=== PATIENT | female | born 1985 | race Caucasian/White ===

== ENCOUNTER 2018-04-29 17:33 | Emergency (ER) | payer SELFPAY ==
[2018-04-29 17:48] VITALS: BP 114/87; PULSE 85; RESP 18; TEMP 36.8; O2SAT 100
--- NOTE | 2018-04-29 18:00 | ED.FEMALEGU ---
HPI - Female Genitourinary <CHELITA Choi - Last Filed: 04/29/18 20:59> General Chief complaint: Urogenital-Female Stated complaint: uti,kidney infection, back hurts Time Seen by Provider: 04/29/18 17:48 Source: patient Mode of arrival: ambulatory Limitations: no limitations History of Present Illness HPI Narrative: Patient is a 32-year-old female with recent diagnosis of UTI. She started Levaquin for UTI 7 days ago. Her culture came back resistant to Levaquin, so she was switched to Septra 3 days ago. Patient presents with chief complaint of flank pain on the left side. She also complains of malaise, nausea and general not feeling well. She states that her dysuria urgency and frequency have improved. She denies any vomiting or diarrhea. She denies fevers. Related Data Home Medications Medication Instructions Recorded Confirmed VIT#96/FERROUS FUM/FA 1 tab PO Q DAY #0 04/30/11 ( Tablet) Allergies Allergy/AdvReac Type Severity Reaction Status Date / Time No Known Allergies Allergy Uncoded 10/05/17 12:19 Review of Systems <ERIN Choi - Last Filed: 04/29/18 20:59> Review of Systems GENERAL: See HPI HEENT: Denies sinus pain, ear pain, sore throat, difficulty swallowing, dizziness. RESPIRATORY: Denies dyspnea, cough, wheezing, hemoptysis, sputum. CARDIOVASCULAR: Denies chest pain, palpitations, orthopnea, edema, GASTROINTESTINAL: See HPI : See HPI MUSCULOSKELETAL: denies weakness, joint pain, or bony pain SKIN: Denies rash, skin lesions, or other NEUROLOGIC: Denies weakness, headache, numbness, change in speech, confusion, seizures, incoordination. PSYCHIATRIC: No concerning psychosocial issues. 12 point review of systems is negative except for those stated above Exam <CHELITA Choi - Last Filed: 04/29/18 20:59> Narrative Exam Narrative: GENERAL: This is a well-nourished, well-developed patient, appears uncomfortable sitting on stretcher HEAD: Atraumatic. Normocephalic. No temporal or scalp tenderness. EYES: Pupils equal round and reactive. Extraocular motions intact. No scleral icterus. No injection or drainage. ENT: Nose without bleeding, purulent drainage or septal hematoma. Throat without erythema, tonsillar hypertrophy or exudate. Uvula midline. Airway patent. NECK: Trachea midline. No JVD or lymphadenopathy. Supple, nontender, no meningeal signs. CARDIOVASCULAR: Regular rate and rhythm without murmurs, gallops, or rubs. RESPIRATORY: Clear to auscultation. Breath sounds equal bilaterally. No wheezes, rales, or rhonchi. GASTROINTESTINAL: Abdomen soft, non-tender, nondistended. No hepato-splenomegaly, or palpable masses. No guarding. Active bowel sounds all 4 quadrants. Pressure to suprapubic palpation EXTREMITIES: No clubbing, cyanosis, or edema. No joint tenderness, effusion, or edema noted. BACK: Nontender without deformity or crepitance. CVA tenderness right side. NEURO: AOx3. SKIN: No rash or erythema. Initial Vital Signs Initial Vital Signs: Vital Signs Temperature 98.2 F 04/29/18 17:48 Pulse Rate 85 04/29/18 17:48 Respiratory Rate 18 04/29/18 17:48 Blood Pressure 114/87 04/29/18 17:48 Pulse Oximetry 100 04/29/18 17:48 <López Ramirez DO - Last Filed: 04/29/18 21:13> Initial Vital Signs Initial Vital Signs: Vital Signs Temperature 98.2 F 04/29/18 17:48 Pulse Rate 85 04/29/18 17:48 Respiratory Rate 18 04/29/18 17:48 Blood Pressure 114/87 04/29/18 17:48 Pulse Oximetry 100 04/29/18 17:48 Course <CHELITA Choi - Last Filed: 04/29/18 20:59> Orders Ordered: ED Orders 04/29/18 18:07 Urinalysis and Microscopic Stat 04/29/18 18:30 Complete Blood Count AUTO DIFF Stat Comprehensive Metabolic Panel Stat Lactate (Lactic Acid) Stat Procalcitonin Stat Discontinued Medications Sodium Chloride (Normal Saline 0.9%) 1,000 mls @ 1,000 mls/hr IV BOLUS PRN PRN Reason: Fluid replacement Sodium Chloride (Normal Saline 0.9%) 1,000 mls @ 1,000 mls/hr IV BOLUS PRN PRN Reason: Fluid replacement Ketorolac Tromethamine (Toradol) 30 mg IV NOW ONE Stop: 04/29/18 19:14 Last Admin: 04/29/18 19:30 Dose: 30 mg Reevaluation(s) Reevaluation #1: Patient is staying on bed. States that she is comfortable in a position. Discussed normal white blood cell count and lactic acid level. Discussed trial of Toradol for pain. Time: 19:05 Vital Signs - 8 hr 04/29/18 17:48 04/29/18 19:41 Temperature 98.2 F Pulse Rate 85 84 Respiratory Rate 18 15 Blood Pressure 114/87 Blood Pressure [Right Arm] 111/59 L Pulse Oximetry 100 95 <López Ramirez DO - Last Filed: 04/29/18 21:13> Orders Ordered: ED Orders 04/29/18 18:07 Urinalysis and Microscopic Stat 04/29/18 18:30 Complete Blood Count AUTO DIFF Stat Comprehensive Metabolic Panel Stat Lactate (Lactic Acid) Stat Procalcitonin Stat Discontinued Medications Sodium Chloride (Normal Saline 0.9%) 1,000 mls @ 1,000 mls/hr IV BOLUS PRN PRN Reason: Fluid replacement Sodium Chloride (Normal Saline 0.9%) 1,000 mls @ 1,000 mls/hr IV BOLUS PRN PRN Reason: Fluid replacement Ketorolac Tromethamine (Toradol) 30 mg IV NOW ONE Stop: 04/29/18 19:14 Last Admin: 04/29/18 19:30 Dose: 30 mg Vital Signs - 8 hr 04/29/18 17:48 04/29/18 19:41 Temperature 98.2 F Pulse Rate 85 84 Respiratory Rate 18 15 Blood Pressure 114/87 Blood Pressure [Right Arm] 111/59 L Pulse Oximetry 100 95 MDM - Female Genitourinary <AUBREY Choi- - Last Filed: 04/29/18 20:59> Lab Data Result diagrams: 04/29/18 18:30 04/29/18 18:30 Lab Results 04/29/18 04/29/18 04/29/18 Range/Units 18:07 18:30 18:30 WBC (4.5-11.0) X10^3/uL RBC (4.0-5.2) X10^6/uL Hgb (12.0-16.0) g/dL Hct (36-46) % MCV (80-100) fL MCH (26-34) PG MCHC (30-36) % RDW (11.6-14.8) % Plt Count (150-400) X10^3/uL Neut % (Auto) (50-75) % Lymph % (Auto) (25-40) % [place] % (Auto) (3-14) % Eos % (Auto) (2-4) % Baso % (Auto) (0-2) % Neut # (Auto) (7360-6052) /uL Sodium (137-145) mmol/L Potassium (3.4-5.1) mmol/L Chloride (98-107) mmol/L Carbon Dioxide (22-32) mmol/L BUN (7-17) mg/dL Creatinine (0.52-1.04) mg/dL Estimated GFR (>60) mL/min BUN/Creatinine Ratio (6-22) Glucose (70-100) mg/dL Lactate 1.0 (0.7-2.1) mmol/L Calcium (8.4-10.2) mg/dL Total Bilirubin (0.2-1.3) mg/dL AST (14-36) IU/L ALT (9-52) IU/L Alkaline Phosphatase (38-126) U/L Total Protein (6.3-8.2) g/dL Albumin (3.5-5.0) g/dL Globulin (1.7-4.1) g/dL Albumin/Globulin Ratio (1.0-2.8) Procalcitonin < 0.05 (<0.5) ng/mL Urine Color Yellow Urine Appearance Clear Urine pH 7.0 (4.5-8.0) Ur Specific [place] 1.010 (1.000-1.035) Urine Protein Negative (Negative) Urine Glucose (UA) Negative (Normal) g/dL Urine Ketones Negative (NEGATIVE) Urine Occult Blood Negative (Negative) Urine Nitrate Negative (Negative) Urine Bilirubin Negative (NEGATIVE) Urine Urobilinogen 0.2 (0.2) E.U./dL Ur Leukocyte Esterase Negative (NEGATIVE) Urine RBC 0-1/hpf (0-5/HPF) Urine WBC 0-1/hpf (0-5/HPF) Urine Bacteria None seen (None) 04/29/18 04/29/18 Range/Units 18:30 18:30 WBC 6.7 (4.5-11.0) X10^3/uL RBC 4.30 (4.0-5.2) X10^6/uL Hgb 13.1 (12.0-16.0) g/dL Hct 38.3 (36-46) % MCV 89.1 (80-100) fL MCH 30.4 (26-34) PG MCHC 34.1 (30-36) % RDW 13.0 (11.6-14.8) % Plt Count 187 (150-400) X10^3/uL Neut % (Auto) 75.4 H (50-75) % Lymph % (Auto) 11.4 L (25-40) % [place] % (Auto) 9.9 (3-14) % Eos % (Auto) 2.9 (2-4) % Baso % (Auto) 0.4 (0-2) % Neut # (Auto) 5000 (1245-0197) /uL Sodium 141 (137-145) mmol/L Potassium 3.7 (3.4-5.1) mmol/L Chloride 102 (98-107) mmol/L Carbon Dioxide 25 (22-32) mmol/L BUN 10 (7-17) mg/dL Creatinine 0.90 (0.52-1.04) mg/dL Estimated GFR > 60.0 (>60) mL/min BUN/Creatinine Ratio 11.1 (6-22) Glucose 97 (70-100) mg/dL Lactate (0.7-2.1) mmol/L Calcium 9.4 (8.4-10.2) mg/dL Total Bilirubin 0.6 (0.2-1.3) mg/dL AST 26 (14-36) IU/L ALT 26 (9-52) IU/L Alkaline Phosphatase 77 (38-126) U/L Total Protein 8.0 (6.3-8.2) g/dL Albumin 4.8 (3.5-5.0) g/dL Globulin 3.2 (1.7-4.1) g/dL Albumin/Globulin Ratio 1.5 (1.0-2.8) Procalcitonin (<0.5) ng/mL Urine Color Urine Appearance Urine pH (4.5-8.0) Ur Specific [place] (1.000-1.035) Urine Protein (Negative) Urine Glucose (UA) (Normal) g/dL Urine Ketones (NEGATIVE) Urine Occult Blood (Negative) Urine Nitrate (Negative) Urine Bilirubin (NEGATIVE) Urine Urobilinogen (0.2) E.U./dL Ur Leukocyte Esterase (NEGATIVE) Urine RBC (0-5/HPF) Urine WBC (0-5/HPF) Urine Bacteria (None) Point of Care Testing Test Results Negative Urine Dip Bedside Urine Glucose Negative Bedside Urine Bilirubin - Negative Bedside Urine Ketone - Negative Urine Specific [place] 1.015 Bedside Urine Occult Blood - Negative Bedside Urine pH 6.5 Bedside Urine Protein - Negative Bedside Urine Urobilinogen - Negative Bedside Urine Nitrite - Negative Bedside Urine Leukocytes - Negative Esterase MDM Narrative Medical decision making narrative: Patient is a 32-year-old female recently diagnosed with UTI who presents to the emergency department with flank pain and concern that her UTIs getting worse. Her antibiotics were changed by her clinic from Levaquin to Bactrim due to resistance. She had a CBC, CMP procalcitonin and lactate done. She does not have an elevated white blood cell count and her pro calcitonin and lactate are normal. Of note her urine does not have any signs of of infection on urinalysis in the emergency department. She is hemodynamically stable, afebrile and appears well. She experienced some relief from her back pain with a dose of Toradol in the emergency department. Given that she has not used any [id number] pain medications for her back discomfort, I encouraged her to use Tylenol and/or ibuprofen as needed and able. The patient was adamant that she did not want any further workup of her flank pain and did not want any imaging. I discussed return precautions of fever, inability keep down fluids or any acute concerns or changes. She had no questions or concerns upon discharge. <López Ramirez, DO - Last Filed: 04/29/18 21:13> Lab Data Lab Results 04/29/18 04/29/18 04/29/18 Range/Units 18:07 18:30 18:30 WBC (4.5-11.0) X10^3/uL RBC (4.0-5.2) X10^6/uL Hgb (12.0-16.0) g/dL Hct (36-46) % MCV (80-100) fL MCH (26-34) PG MCHC (30-36) % RDW (11.6-14.8) % Plt Count (150-400) X10^3/uL Neut % (Auto) (50-75) % Lymph % (Auto) (25-40) % [place] % (Auto) (3-14) % Eos % (Auto) (2-4) % Baso % (Auto) (0-2) % Neut # (Auto) (0199-8447) /uL Sodium (137-145) mmol/L Potassium (3.4-5.1) mmol/L Chloride (98-107) mmol/L Carbon Dioxide (22-32) mmol/L BUN (7-17) mg/dL Creatinine (0.52-1.04) mg/dL Estimated GFR (>60) mL/min BUN/Creatinine Ratio (6-22) Glucose (70-100) mg/dL Lactate 1.0 (0.7-2.1) mmol/L Calcium (8.4-10.2) mg/dL Total Bilirubin (0.2-1.3) mg/dL AST (14-36) IU/L ALT (9-52) IU/L Alkaline Phosphatase (38-126) U/L Total Protein (6.3-8.2) g/dL Albumin (3.5-5.0) g/dL Globulin (1.7-4.1) g/dL Albumin/Globulin Ratio (1.0-2.8) Procalcitonin < 0.05 (<0.5) ng/mL Urine Color Yellow Urine Appearance Clear Urine pH 7.0 (4.5-8.0) Ur Specific [place] 1.010 (1.000-1.035) Urine Protein Negative (Negative) Urine Glucose (UA) Negative (Normal) g/dL Urine Ketones Negative (NEGATIVE) Urine Occult Blood Negative (Negative) Urine Nitrate Negative (Negative) Urine Bilirubin Negative (NEGATIVE) Urine Urobilinogen 0.2 (0.2) E.U./dL Ur Leukocyte Esterase Negative (NEGATIVE) Urine RBC 0-1/hpf (0-5/HPF) Urine WBC 0-1/hpf (0-5/HPF) Urine Bacteria None seen (None) 04/29/18 04/29/18 Range/Units 18:30 18:30 WBC 6.7 (4.5-11.0) X10^3/uL RBC 4.30 (4.0-5.2) X10^6/uL Hgb 13.1 (12.0-16.0) g/dL Hct 38.3 (36-46) % MCV 89.1 (80-100) fL MCH 30.4 (26-34) PG MCHC 34.1 (30-36) % RDW 13.0 (11.6-14.8) % Plt Count 187 (150-400) X10^3/uL Neut % (Auto) 75.4 H (50-75) % Lymph % (Auto) 11.4 L (25-40) % [place] % (Auto) 9.9 (3-14) % Eos % (Auto) 2.9 (2-4) % Baso % (Auto) 0.4 (0-2) % Neut # (Auto) 5000 (2970-7387) /uL Sodium 141 (137-145) mmol/L Potassium 3.7 (3.4-5.1) mmol/L Chloride 102 (98-107) mmol/L Carbon Dioxide 25 (22-32) mmol/L BUN 10 (7-17) mg/dL Creatinine 0.90 (0.52-1.04) mg/dL Estimated GFR > 60.0 (>60) mL/min BUN/Creatinine Ratio 11.1 (6-22) Glucose 97 (70-100) mg/dL Lactate (0.7-2.1) mmol/L Calcium 9.4 (8.4-10.2) mg/dL Total Bilirubin 0.6 (0.2-1.3) mg/dL AST 26 (14-36) IU/L ALT 26 (9-52) IU/L Alkaline Phosphatase 77 (38-126) U/L Total Protein 8.0 (6.3-8.2) g/dL Albumin 4.8 (3.5-5.0) g/dL Globulin 3.2 (1.7-4.1) g/dL Albumin/Globulin Ratio 1.5 (1.0-2.8) Procalcitonin (<0.5) ng/mL Urine Color Urine Appearance Urine pH (4.5-8.0) Ur Specific [place] (1.000-1.035) Urine Protein (Negative) Urine Glucose (UA) (Normal) g/dL Urine Ketones (NEGATIVE) Urine Occult Blood (Negative) Urine Nitrate (Negative) Urine Bilirubin (NEGATIVE) Urine Urobilinogen (0.2) E.U./dL Ur Leukocyte Esterase (NEGATIVE) Urine RBC (0-5/HPF) Urine WBC (0-5/HPF) Urine Bacteria (None) Point of Care Testing Test Results Negative Urine Dip Bedside Urine Glucose Negative Bedside Urine Bilirubin - Negative Bedside Urine Ketone - Negative Urine Specific [place] 1.015 Bedside Urine Occult Blood - Negative Bedside Urine pH 6.5 Bedside Urine Protein - Negative Bedside Urine Urobilinogen - Negative Bedside Urine Nitrite - Negative Bedside Urine Leukocytes - Negative Esterase Discharge Plan Departure Patient Disposition: Home Clinical Impression: Flank pain Discharge Date/Time: 04/29/18 20:21 Interventions: ED Discharge Assessment Last Done: 04/29/18 20:21 Instructions: DI for Flank Pain Activity Restrictions/Additional Instructions: Your vital signs are stable, your blood work is normal and your urine is clean in the emergency department. I would keep taking the Bactrim DS for urinary tract infection. The cultures sent to me by the medical group state that Bactrim should be effective for your infection. Please monitor for fever, inability keep down fluids or worsening. Feel free to take [id number] pain medication as needed for your flank pain. Please avoid any NSAIDs such as ibuprofen or Aleve for 6-8 hours after the Toradol injection in the emergency department. Prescriptions: No Action VIT#96/FERROUS FUM/FA ( Tablet) 1 tab PO Q DAY Qty: 0 RF: 0 <López Ramirez DO - Last Filed: 04/29/18 21:13> Cosign ED Attending Izzy Attestation: I was available for consultation during this patient's emergency department encounter
[2018-04-29 18:42] LABS: Add Manual Diff / Slide Review NO; Basophils Percent Auto 0.4 % (0-2); Eosinophils Percent Auto 2.9 % (2-4); Hematocrit 38.3 % (36-46); Hemoglobin 13.1 g/dL (12.0-16.0); Lymphocytes Percent Auto 11.4 % (25-40); Mean Corpuscular HGB Conc 34.1 % (30-36); Mean Corpuscular Hemoglobin 30.4 PG (26-34); Mean Corpuscular Volume 89.1 fL (80-100); Monocytes Percent Auto 9.9 % (3-14); Neutrophils Absolute Auto 5000 /uL (3000-5900); Neutrophils Percent Auto 75.4 % (50-75); Platelet Count 187 X10^3/uL (150-400); White Blood Cell Count 6.7 X10^3/uL (4.5-11.0)
[2018-04-29 18:51] LABS: Alanine Aminotransferase 26 IU/L (9-52); Albumin 4.8 g/dL (3.5-5.0); Albumin Globulin Ratio 1.5 (1.0-2.8); Alkaline Phosphatase 77 U/L (38-126); Aspartate Aminotransferase 26 IU/L (14-36); BUN Creatinine Ratio 11.1 (6-22); Bilirubin Total 0.6 mg/dL (0.2-1.3); Blood Urea Nitrogen 10 mg/dL (7-17); Calcium 9.4 mg/dL (8.4-10.2); Carbon Dioxide 25 mmol/L (22-32); Chloride 102 mmol/L (98-107); Estimated Glomerular Filt Rate > 60.0 mL/min (>60); Globulin 3.2 g/dL (1.7-4.1); Glucose 97 mg/dL (70-100); HEMOLYSIS < 15 (0-50); Potassium 3.7 mmol/L (3.4-5.1); Sodium 141 mmol/L (137-145)
[2018-04-29 19:27] LABS: Appearance Urine UA CLEAR; Bacteria Urine None Seen; Bilirubin Urine UA NEGATIVE (NEGATIVE); Color Urine UA YELLOW; Glucose Urine UA NEGATIVE (Normal); Ketones Urine UA NEGATIVE (NEGATIVE); Leukocyte Esterase Urine UA NEGATIVE (NEGATIVE); Nitrite Urine UA NEGATIVE (Negative); Occult Blood Urine UA NEGATIVE (Negative); Protein Urine UA NEGATIVE (Negative); Urobilinogen Urine UA 0.2 E.U./dL (0.2)
[2018-04-29] MEDS: KETOROLAC 60 MG/2 ML VIAL 30 MG IV (19:30)
[2018-04-29 19:34] LABS: RBC Urine 0-1/HPF (0-5/HPF); WBC Urine 0-1/HPF (0-5/HPF)
[2018-04-29 19:41] VITALS: BP 111/59; PULSE 84; RESP 15; O2SAT 95
[2018-04-29 19:45] LABS: Procalcitonin < 0.05 ng/mL (<0.5)
--- NOTE | 2018-04-29 20:20 | PC.NURSE ---
Pt drinking po water from a gallon jug. Provider aware and aknowledged no need for NS bolus.
== END 2018-04-29 20:21 | disposition home or self-care (01) ==
PROVIDERS: Emergency Provider Nurse Practitioner Family
DX: R10.9 Unspecified abdominal pain (principal)
CPT/HCPCS: 36591; 80053; 81001; 81003; 81025; 83605; 84145; 85025; 96374; 99282; 99284; J1885

== ENCOUNTER → 2021-01-13 13:31 | Outpatient (CLI) | payer OTHER, SELFPAY ==
--- NOTE | 2021-01-13 13:33 | DI.US.S_ITS ---
PROCEDURE: US PELVIC COMPLETE INDICATIONS: Uterine pain TECHNIQUE: Real-time scanning was performed of the pelvic organs, with image documentation. Additional endovaginal scanning was necessary due to incomplete visualization of the adnexal and endometrial structures by transabdominal scanning. COMPARISON: None. FINDINGS: Uterus: Uterus is normal in size at 4.2 x 6.0 x 9.2 cm, anteverted. The endometrium measures 5.8 mm in combined thickness. Ovaries: Normal bilaterally without evidence of torsion or abnormal cystic or solid mass Other: No pathologic free abdominal or pelvic fluid. IMPRESSION: Normal pelvic ultrasound. Dictated by: Clement Alcantara M.D. on 01/13/2021 at 16:25 Approved by: Clement Alcantara M.D. on 01/13/2021 at 16:26
== END ==
PROVIDERS: PCP Family Medicine; Referring Provider Obstetrics & Gynecology; Visit Provider Obstetrics & Gynecology
DX: N94.89 Other specified conditions associated with female genital organs and menstrual cycle (principal)
CPT/HCPCS: 76830; 76856

== ENCOUNTER → 2021-05-05 07:59 | Outpatient (CLI) | payer OTHER, SELFPAY ==
[2021-05-05 09:32] LABS: COVID19 -Nasal RAPID POSITIVE (Negative)
== END ==
PROVIDERS: PCP Family Medicine; Visit Provider Physician Assistant
DX: R51.9 Headache, unspecified (principal)
CPT/HCPCS: 87635

== ENCOUNTER 2021-05-05 20:57 | Emergency (ER) | payer OTHER, SELFPAY ==
[2021-05-05] VITALS (15 sets, daily range): BP systolic 84–103; BP diastolic 51–71; PULSE 101–220; RESP 11–25; TEMP 38.5; O2SAT 94–100
[2021-05-05] MEDS: SODIUM CHLORIDE 0.9% 1,000 ML 1000 ML IV (21:18)
[2021-05-05] MEDS: dilTIAZem 5 MG/ML SDV 20 MG IV (21:18)
[2021-05-05 21:20] LABS: Add Manual Diff / Slide Review NO; Basophils Absolute Auto 0 /uL (0-100); Basophils Percent Auto 0.2 % (0-2); Eosinophils Absolute Auto 0 /uL (0-450); Eosinophils Percent Auto 0.1 % (2-4); Hematocrit 40.5 % (36-46); Hemoglobin 13.5 g/dL (12.0-16.0); Lymphocytes Absolute Auto 1500 /uL (1100-4500); Lymphocytes Percent Auto 30.4 % (25-40); Mean Corpuscular HGB Conc 33.4 % (30-36); Mean Corpuscular Hemoglobin 29.4 PG (26-34); Mean Corpuscular Volume 88.1 fL (80-100); Monocytes Absolute Auto 600 /uL (0-900); Monocytes Percent Auto 12.4 % (3-14); Neutrophils Absolute Auto 2700 /uL (1500-7000); Neutrophils Percent Auto 56.9 % (50-75); Platelet Count 156 X10^3/uL (150-400); Red Cell Distribution Width 13.6 % (11.6-14.8); White Blood Cell Count 4.8 X10^3/uL (4.5-11.0)
[2021-05-05 21:31] LABS: Alanine Aminotransferase 26 IU/L (<35); Albumin 4.8 g/dL (3.5-5.0); Albumin Globulin Ratio 1.5 (1.0-2.8); Alkaline Phosphatase 66 U/L (38-126); Aspartate Aminotransferase 34 IU/L (14-36); Bilirubin Total 0.3 mg/dL (0.2-1.3); Blood Urea Nitrogen 10 mg/dL (7-17); Calcium 9.1 mg/dL (8.4-10.2); Carbon Dioxide 25 mmol/L (22-32); Chloride 101 mmol/L (98-107); Estimated Glomerular Filt Rate > 60.0 mL/min (>60); Globulin 3.2 g/dL (1.7-4.1); Glucose 130 mg/dL (70-100); HEMOLYSIS < 15 (0-50); Magnesium 1.7 mg/dL (1.6-2.3); Potassium 3.3 mmol/L (3.4-5.1); Sodium 137 mmol/L (137-145)
--- NOTE | 2021-05-05 21:32 | ED.ARRPALP ---
HPI - Arrhythmia/Palpitations General Chief Complaint: Arrhythmia/Palpitations Stated Complaint: heart is rapidly beating, covid + Time Seen by Provider: 05/05/21 21:10 Source: patient Mode of arrival: Ambulatory History of Present Illness HPI narrative: 35F nonsmoker presents with the chief complaint of rapid heart rate and chest pain over the course of this afternoon. She has been having low-grade fever, some dry hacking cough and sore throat since . She went to the walk-in clinic today and was diagnosed with COVID. She went home after her appointment and started having palpitations and shortness of breath, she called the nursing hotline and was instructed to come see us in the department. She denies any new medications or dietary change. She is a bit lightheaded but not profoundly dizzy or weak. Related Data Previous Rx's Medication Instructions Recorded methocarbamol 500 mg tablet See Rx Instructions PO Q6-8H PRN 05/05/21 #20 tab Allergies Allergy/AdvReac Type Severity Reaction Status Date / Time No Known Drug Allergies Allergy Verified 05/05/21 21:27 Review of Systems Review of Systems Narrative: GENERAL: Denies chills, fatigue, malaise, fever, sweats. HEENT: Denies sinus pain, ear pain, sore throat, difficulty swallowing, dizziness. RESPIRATORY: see HPI CARDIOVASCULAR: See HPI GASTROINTESTINAL: Denies nausea, vomiting, abdominal pain, diarrhea, constipation, melena. : Denies dysuria, frequency, incontinence, hematuria, urinary retention. MUSCULOSKELETAL: denies weakness, joint pain, or bony pain SKIN: Denies rash, skin lesions, or other NEUROLOGIC: Denies weakness, headache, numbness, change in speech, confusion, seizures, incoordination. PSYCHIATRIC: No concerning psychosocial issues. 12 point review of systems is negative except for those stated above Patient History Medical History Anxiety and depression Back pain Bruxism (teeth grinding) Dysmenorrhea Dyspareunia in female Family history of endometriosis History of migraine with aura Menometrorrhagia Pelvic pain in female Premenstrual dysphoric syndrome Restless legs Weight gain due to medication Surgical History Anesthesia History of tonsillectomy (~1994) Family History Father Diabetes mellitus Aortic stenosis History of heart disease Hypertension Mental health problem Depression Anxiety Mother Anemia Hypoglycemic syndrome Grandfather History of heart disease Hyperlipidemia Grandmother Hyperlipidemia Mental health problem Anxiety Grandfather Diabetes mellitus Mental health problem Anxiety Depression Social History Smoking Status: Never smoker Smoking Status: Never smoker Substance Use Type: does not use Exam Narrative Exam Narrative: GENERAL: [35 year old patient appears stated age. Well-developed patient, in mild distress. HEAD: Atraumatic. Normocephalic. EYES: Pupils equal round and reactive. Extraocular motions intact. No scleral icterus. No injection or drainage. ENT: Nose without bleeding, purulent drainage. Throat without erythema, tonsillar hypertrophy or exudate. Airway patent. NECK: Trachea midline. Non tender CARDIOVASCULAR: Tachycardic but rhythm without murmurs, gallops, or rubs. RESPIRATORY: Clear to auscultation. Breath sounds equal bilaterally. No wheezes, rales, or rhonchi. GASTROINTESTINAL: Abdomen soft, non-tender, nondistended. EXTREMITIES: No edema or joint tenderness. BACK: Nontender without deformity or crepitance. No flank tenderness. NEURO: AOx3. SKIN: No rash or erythema of visible areas Initial Vital Signs Initial Vital Signs: Vital Signs Temperature 101.3 F H 05/05/21 20:59 Pulse Rate 220 H 05/05/21 20:59 Respiratory Rate 16 05/05/21 20:59 Blood Pressure 90/58 L 05/05/21 20:59 Pulse Oximetry 100 05/05/21 20:59 Course Orders Ordered: ED Orders 05/05/21 21:15 Complete Blood Count AUTO DIFF Stat Comprehensive Metabolic Panel Stat Magnesium Stat 05/05/21 21:30 EKG-12 Lead Stat Discontinued Medications Acetaminophen (Acetaminophen 325 Mg Tablet) 975 mg PO NOW ONE Stop: 05/05/21 21:28 Last Admin: 05/05/21 21:59 Dose: 975 mg Documented by: LINDA Diltiazem HCl (Diltiazem 5 Mg/Ml Sdv) 20 mg IV NOW ONE Stop: 05/05/21 21:15 Last Admin: 05/05/21 21:18 Dose: 20 mg Documented by: LINDA Sodium Chloride (Normal Saline 0.9%) 1,000 mls @ 1,000 mls/hr IV BOLUS ONE Stop: 05/05/21 22:09 Last Infusion: 05/05/21 22:24 Dose: 0 mls/hr Documented by: Admin: 05/05/21 21:18 Dose: 1,000 mls/hr Documented by: LINDA Reevaluation(s) Reevaluation #1: Patient has significant improvement in symptoms after Cardizem. Her heart rate slows to around 100, she denies any ongoing chest pressure, heaviness or palpitations. Repeat EKG shows that depressions have resolved Vital Signs Vital signs: Vital Signs - 8 hr 05/05/21 20:59 05/05/21 21:10 05/05/21 21:15 Temperature 101.3 F H Pulse Rate 220 H 215 H 210 H Respiratory Rate 16 11 L 23 Blood Pressure 90/58 L 90/55 L Pulse Oximetry 100 05/05/21 21:18 05/05/21 21:19 05/05/21 21:20 Temperature Pulse Rate 206 H 210 H 196 H Respiratory Rate 20 15 Blood Pressure 84/53 L 86/58 L 84/53 L Pulse Oximetry 05/05/21 21:23 05/05/21 21:25 05/05/21 21:30 Temperature Pulse Rate 101 H 102 H 105 H Respiratory Rate 19 25 H 18 Blood Pressure 95/57 L 95/51 L 87/54 L Pulse Oximetry 94 95 97 05/05/21 21:40 05/05/21 21:50 05/05/21 22:02 Temperature Pulse Rate 107 H 108 H 112 H Respiratory Rate 16 18 24 Blood Pressure 96/66 93/65 Pulse Oximetry 98 98 05/05/21 22:04 05/05/21 22:10 05/05/21 22:20 Temperature Pulse Rate 108 H 104 H 109 H Respiratory Rate 12 18 24 Blood Pressure 96/71 94/68 103/70 Pulse Oximetry 98 99 98 MDM - Arrhythmia/Palpitations Lab Data Result diagrams: 05/05/21 21:15 05/05/21 21:15 Labs: Lab Results 05/05/21 05/05/21 Range/Units 21:15 21:15 WBC 4.8 (4.5-11.0) X10^3/uL RBC 4.60 (4.0-5.2) X10^6/uL Hgb 13.5 (12.0-16.0) g/dL Hct 40.5 (36-46) % MCV 88.1 (80-100) fL MCH 29.4 (26-34) PG MCHC 33.4 (30-36) % RDW 13.6 (11.6-14.8) % Plt Count 156 (150-400) X10^3/uL Neut % (Auto) 56.9 (50-75) % Lymph % (Auto) 30.4 (25-40) % [place] % (Auto) 12.4 (3-14) % Eos % (Auto) 0.1 L (2-4) % Baso % (Auto) 0.2 (0-2) % Neut # (Auto) 2700 (7386-2849) /uL Lymph # (Auto) 1500 (1634-1564) /uL [place] # (Auto) 600 (0-900) /uL Eos # (Auto) 0 (0-450) /uL Baso # (Auto) 0 (0-100) /uL Sodium 137 (137-145) mmol/L Potassium 3.3 L (3.4-5.1) mmol/L Chloride 101 (98-107) mmol/L Carbon Dioxide 25 (22-32) mmol/L BUN 10 (7-17) mg/dL Creatinine 1.00 (0.52-1.04) mg/dL Estimated GFR > 60.0 (>60) mL/min BUN/Creatinine Ratio 10.0 (6-22) Glucose 130 H (70-100) mg/dL Calcium 9.1 (8.4-10.2) mg/dL Magnesium 1.7 (1.6-2.3) mg/dL Total Bilirubin 0.3 (0.2-1.3) mg/dL AST 34 (14-36) IU/L ALT 26 (<35) IU/L Alkaline Phosphatase 66 (38-126) U/L Total Protein 8.0 (6.3-8.2) g/dL Albumin 4.8 (3.5-5.0) g/dL Globulin 3.2 (1.7-4.1) g/dL Albumin/Globulin Ratio 1.5 (1.0-2.8) MDM Narrative Medical decision making narrative: Patient's with rapid SVT and EKG changes consistent with ST depressions has significant improvement after Cardizem. Labs are reassuring. Patient is asymptomatic in terms of chest pain or shortness of breath. She was just diagnosed with COVID but is not in any significant respiratory distress and does not require supplemental oxygen. She is given return precautions and questions answered to her apparent satisfaction Discharge Plan Departure Patient Disposition: Home Clinical Impression: SVT (supraventricular tachycardia), COVID Instructions: DI for Paroxysmal Supraventricular Tachycardia, DI for COVID-19 (Suspected or Confirmed ) Activity Restrictions/Additional Instructions: *You have been diagnosed with [ COVID-19] *What to do: * per recommendations from the CDC and the [facility] Department of Health * stay home except to get medical care. Restrict activities outside your home, except for getting medical care. Do not go to work, school, or public areas. Avoid using public transportation, ride sharing, or taxis. * separate yourself from other people in your home. * call ahead before visiting your doctor * Wear a facemask * Cover your coughs and sneezes * Clean your hands often * Avoid sharing household items * Clean all high-touch services every day * Monitor your symptoms and seek prompt medical attention if your illness is worsening, particularly with difficulty in breathing. You may discontinue your isolation when: 1. You have been fever-free for at least 24 hours without the use of fever reducing medication, AND 2. Your symptoms are getting better 3. At least 10 days have passed since symptoms first appeared Individuals with laboratory confirmed COVID-19 who have not had any symptoms may discontinue home isolation when at least 10 days have passed since the date of their first COVID-19 diagnostic test and have had no subsequent illness Prescriptions: No Action methocarbamol 500 mg tablet See Rx Instructions PO Q6-8H PRN (Reason: muscle spasm) Qty: 20 RF: 0 Referrals: Ivan Cesar DO [Primary Care Provider] -
[2021-05-05] MEDS: ACETAMINOPHEN 325 MG TABLET 975 MG PO (21:59)
== END 2021-05-05 22:25 | disposition home or self-care (01) ==
PROVIDERS: Emergency Provider Emergency Medicine; PCP Family Medicine
DX: U07.1 COVID-19 (principal); I47.1 Supraventricular tachycardia; R51.9 Headache, unspecified
CPT/HCPCS: 36415; 80053; 83735; 85025; 87635; 93005; 93010; 96361; 96374; 99284

== ENCOUNTER 2021-05-08 12:27 | Emergency (ER) | payer OTHER, SELFPAY ==
[2021-05-08] VITALS (21 sets, daily range): BP systolic 84–106; BP diastolic 48–77; PULSE 81–98; RESP 16–32; TEMP 37.6; O2SAT 93–99; BMI 25.4
--- NOTE | 2021-05-08 12:39 | DI.RAD.S_ITS ---
PROCEDURE: XR CHEST 1V INDICATIONS: flu-like symptoms TECHNIQUE: One view of the chest was acquired. COMPARISON: None. FINDINGS: Surgical changes and devices: None. Lungs and pleura: Left lower lobe infiltrates suspicious for pneumonia. No pleural effusions or pneumothorax. Mediastinum: Mediastinal contours appear normal. Heart size is normal. Bones and chest wall: No suspicious bony lesions. Overlying soft tissues appear unremarkable. IMPRESSION: Left lower lobe infiltrates suspicious for pneumonia. Dictated by: Roman Garcia M.D. on 05/08/2021 at 13:22 Approved by: Roman Garcia M.D. on 05/08/2021 at 13:23
--- NOTE | 2021-05-08 13:08 | ED.CHESTPAIN ---
HPI - Chest Pain <Benja Giron PA-C - Last Filed: 05/08/21 19:35> General Chief Complaint: Chest Pain Stated Complaint: Heart Pain, Irregular Heart Beat/COVID+ Time Seen by Provider: 05/08/21 12:54 Source: patient Mode of arrival: Ambulatory Limitations: no limitations History of Present Illness HPI narrative: Patient is a 35-year-old female presenting to the emergency department today for evaluation ?pain in heart, and fluctuating heart rate. Patient states that she began to experience sharp pain in her chest that was worse than with in deep inspiration today, and she also noticed that her heart rate would fluctuate from the 90s to the 120s. Additionally, she states that she has felt lightheaded and slightly short of breath, but she feels that her shortness of breath has not significantly worsened today. Of note, patient has been diagnosed with COVID-19 and has been experiencing a persistent fever that she has been treating regularly with ibuprofen. Patient denies chills, abdominal pain, nausea, vomiting, diarrhea, changes in vision, diaphoresis, hemoptysis, dysuria. No known trauma or injuries reported. No other concerns voiced at this time. Related Data Previous Rx's Medication Instructions Recorded methocarbamol 500 mg tablet See Rx Instructions PO Q6-8H PRN 05/05/21 #20 tab ondansetron HCl 4 mg tablet 4 mg PO Q8H PRN #30 tab 05/08/21 (Zofran) Allergies Allergy/AdvReac Type Severity Reaction Status Date / Time No Known Drug Allergies Allergy Verified 05/08/21 22:40 Review of Systems <Benja Giron PA-C - Last Filed: 05/08/21 19:35> Constitutional Constitutional: Denies chills, Reports fever(s), Denies frequent falls, Denies lethargy and Denies weakness Eyes Eyes: Denies change in vision, Denies eye discharge, Denies irritation and Denies loss of vision ENT Ears, Nose, Mouth, and Throat: Reports dizziness Cardiovascular Cardiovascular: Reports chest pain, Reports lightheadedness, Reports palpitations and Reports dyspnea Respiratory Respiratory: Denies cough, Reports dyspnea and Denies wheezing Gastrointestinal Gastrointestinal: Denies abdominal pain, Denies change in bowel habits, Denies diarrhea, Denies nausea and Denies vomiting Musculoskeletal Musculoskeletal: Denies numbness Neurologic Neurologic: Denies behavioral changes, Denies confusion, Reports dizziness, Denies frequent falls, Denies loss of vision, Denies numbness and Denies weakness Psychiatric Psychiatric: Denies behavioral changes and Denies confusion Endocrine Endocrine: Reports palpitations Allergic/Immunologic Allergic/Immunologic: Denies wheezing Patient History <Benja Giron PA-C - Last Filed: 05/08/21 19:35> Medical History Anxiety and depression Back pain Bruxism (teeth grinding) Dysmenorrhea Dyspareunia in female Family history of endometriosis History of migraine with aura Menometrorrhagia Pelvic pain in female Premenstrual dysphoric syndrome Restless legs Weight gain due to medication Surgical History Anesthesia History of tonsillectomy (~1994) Family History Father Diabetes mellitus Aortic stenosis History of heart disease Hypertension Mental health problem Depression Anxiety Mother Anemia Hypoglycemic syndrome Grandfather History of heart disease Hyperlipidemia Grandmother Hyperlipidemia Mental health problem Anxiety Grandfather Diabetes mellitus Mental health problem Anxiety Depression Social History Smoking Status: Never smoker Smoking Status: Never smoker alcohol intake frequency: 0-2 drinks per day Substance Use Type: does not use Exam <Benja Giron PA-C - Last Filed: 05/08/21 19:35> Narrative Exam Narrative: GENERAL: 35 year old patient appears stated age. Well-developed patient, in no acute distress. HEAD: Atraumatic. Normocephalic. EYES: Pupils equal round and reactive. Extraocular motions intact. No scleral icterus. No injection or drainage. ENT: Nose without bleeding, purulent drainage. Throat without erythema, tonsillar hypertrophy or exudate. Airway patent. NECK: Trachea midline. Non tender CARDIOVASCULAR: Tachycardic but regular rhythm without murmurs, gallops, or rubs. RESPIRATORY: Clear to auscultation. Breath sounds equal bilaterally. No wheezes, rales, or rhonchi. GASTROINTESTINAL: Abdomen soft, non-tender, nondistended. EXTREMITIES: No edema or joint tenderness. BACK: Nontender without deformity or crepitance. No flank tenderness. NEURO: AOx3. SKIN: No rash or erythema of visible areas Initial Vital Signs Initial Vital Signs: Vital Signs Temperature 99.7 F H 05/08/21 12:30 Pulse Rate 93 H 05/08/21 12:30 Respiratory Rate 28 H 05/08/21 12:30 Blood Pressure 105/66 05/08/21 12:30 Pulse Oximetry 93 05/08/21 12:30 <Estrada Wise MD - Last Filed: 05/09/21 07:28> Initial Vital Signs Initial Vital Signs: Vital Signs Temperature 99.7 F H 05/08/21 12:30 Pulse Rate 93 H 05/08/21 12:30 Respiratory Rate 28 H 05/08/21 12:30 Blood Pressure 105/66 05/08/21 12:30 Pulse Oximetry 93 05/08/21 12:30 Course <Benja Giron PA-C - Last Filed: 05/08/21 19:35> Course Course Narrative: CRP, lactate, LDH, BNP, procalcitonin, D-dimer, troponin, CBC, CMP, EKG, chest x-ray, and blood cultures obtained. Orders Ordered: Discontinued Medications Sodium Chloride (Normal Saline 0.9%) 1,000 mls @ 1,000 mls/hr IV BOLUS ONE Stop: 05/08/21 14:07 Last Infusion: 05/08/21 14:50 Dose: 0 mls/hr Documented by: Admin: 05/08/21 13:17 Dose: 1,000 mls/hr Documented by: MOHAMUD Sodium Chloride (Normal Saline 0.9%) 1,000 mls @ 1,000 mls/hr IV BOLUS ONE Stop: 05/08/21 16:13 Last Infusion: 05/08/21 16:44 Dose: 0 mls/hr Documented by: Admin: 05/08/21 15:15 Dose: 1,000 mls/hr Documented by: MOHAMUD Ketorolac Tromethamine (Ketorolac 30 Mg/Ml Vial) 30 mg IV NOW ONE Stop: 05/08/21 13:09 Last Admin: 05/08/21 13:17 Dose: 30 mg Documented by: MOHAMUD Ondansetron HCl (Ondansetron 4 Mg/2 Ml Inj) 4 mg IV NOW ONE Stop: 05/08/21 13:09 Last Admin: 05/08/21 13:17 Dose: 4 mg Documented by: MOHAMUD Vital Signs Vital signs: Vital Signs - 8 hr 05/08/21 12:30 05/08/21 12:34 05/08/21 12:45 Temperature 99.7 F H Pulse Rate 93 H 98 H 92 H Respiratory Rate 28 H 18 19 Blood Pressure 105/66 90/60 Pulse Oximetry 93 93 94 05/08/21 13:00 05/08/21 13:04 05/08/21 13:15 Temperature Pulse Rate 95 H 93 H 90 Respiratory Rate 20 32 H 19 Blood Pressure 106/71 106/77 92/66 Pulse Oximetry 95 95 94 05/08/21 13:30 05/08/21 13:45 05/08/21 14:02 Temperature Pulse Rate 87 86 89 Respiratory Rate 17 17 Blood Pressure 93/66 96/69 Pulse Oximetry 95 97 94 05/08/21 14:03 05/08/21 14:15 05/08/21 14:30 Temperature Pulse Rate 84 81 83 Respiratory Rate 16 18 17 Blood Pressure 84/48 L 90/57 L 90/59 L Pulse Oximetry 93 96 96 05/08/21 14:45 05/08/21 15:00 05/08/21 15:15 Temperature Pulse Rate 83 83 84 Respiratory Rate 16 18 19 Blood Pressure 91/59 L 87/63 L 90/64 Pulse Oximetry 96 97 98 05/08/21 15:30 05/08/21 15:45 05/08/21 16:00 Temperature Pulse Rate 83 86 86 Respiratory Rate 17 32 H 20 Blood Pressure 93/64 98/68 99/68 Pulse Oximetry 99 98 97 05/08/21 16:15 05/08/21 16:30 05/08/21 16:45 Temperature Pulse Rate 85 89 87 Respiratory Rate 22 21 19 Blood Pressure 100/65 102/68 105/72 Pulse Oximetry 97 97 97 <Estrada Wise MD - Last Filed: 05/09/21 07:28> Orders Ordered: Discontinued Medications Sodium Chloride (Normal Saline 0.9%) 1,000 mls @ 1,000 mls/hr IV BOLUS ONE Stop: 05/08/21 14:07 Last Infusion: 05/08/21 14:50 Dose: 0 mls/hr Documented by: Admin: 05/08/21 13:17 Dose: 1,000 mls/hr Documented by: MOHAMUD Sodium Chloride (Normal Saline 0.9%) 1,000 mls @ 1,000 mls/hr IV BOLUS ONE Stop: 05/08/21 16:13 Last Infusion: 05/08/21 16:44 Dose: 0 mls/hr Documented by: Admin: 05/08/21 15:15 Dose: 1,000 mls/hr Documented by: MOHAMUD Ketorolac Tromethamine (Ketorolac 30 Mg/Ml Vial) 30 mg IV NOW ONE Stop: 05/08/21 13:09 Last Admin: 05/08/21 13:17 Dose: 30 mg Documented by: MOHAMUD Ondansetron HCl (Ondansetron 4 Mg/2 Ml Inj) 4 mg IV NOW ONE Stop: 05/08/21 13:09 Last Admin: 05/08/21 13:17 Dose: 4 mg Documented by: MOHAMUD Vital Signs Vital signs: Vital Signs - 8 hr 05/08/21 12:30 05/08/21 12:34 05/08/21 12:45 Temperature 99.7 F H Pulse Rate 93 H 98 H 92 H Respiratory Rate 28 H 18 19 Blood Pressure 105/66 90/60 Pulse Oximetry 93 93 94 05/08/21 13:00 05/08/21 13:04 05/08/21 13:15 Temperature Pulse Rate 95 H 93 H 90 Respiratory Rate 20 32 H 19 Blood Pressure 106/71 106/77 92/66 Pulse Oximetry 95 95 94 05/08/21 13:30 05/08/21 13:45 05/08/21 14:02 Temperature Pulse Rate 87 86 89 Respiratory Rate 17 17 Blood Pressure 93/66 96/69 Pulse Oximetry 95 97 94 05/08/21 14:03 05/08/21 14:15 05/08/21 14:30 Temperature Pulse Rate 84 81 83 Respiratory Rate 16 18 17 Blood Pressure 84/48 L 90/57 L 90/59 L Pulse Oximetry 93 96 96 05/08/21 14:45 05/08/21 15:00 05/08/21 15:15 Temperature Pulse Rate 83 83 84 Respiratory Rate 16 18 19 Blood Pressure 91/59 L 87/63 L 90/64 Pulse Oximetry 96 97 98 05/08/21 15:30 05/08/21 15:45 05/08/21 16:00 Temperature Pulse Rate 83 86 86 Respiratory Rate 17 32 H 20 Blood Pressure 93/64 98/68 99/68 Pulse Oximetry 99 98 97 05/08/21 16:15 05/08/21 16:30 05/08/21 16:45 Temperature Pulse Rate 85 89 87 Respiratory Rate 22 21 19 Blood Pressure 100/65 102/68 105/72 Pulse Oximetry 97 97 97 MDM - Chest Pain <Benja Giron PA-C - Last Filed: 05/08/21 19:35> Lab Data Result diagrams: 05/08/21 13:01 05/08/21 13:01 Labs: Lab Results 05/08/21 05/08/21 05/08/21 Range/Units 13:01 13:01 13:01 WBC 2.7 L (4.5-11.0) X10^3/uL RBC 4.02 (4.0-5.2) X10^6/uL Hgb 12.0 (12.0-16.0) g/dL Hct 35.3 L (36-46) % MCV 87.7 (80-100) fL MCH 29.7 (26-34) PG MCHC 33.9 (30-36) % RDW 13.3 (11.6-14.8) % Plt Count 104 L (150-400) X10^3/uL Neut % (Auto) 68.8 (50-75) % Lymph % (Auto) 25.5 (25-40) % [place] % (Auto) 5.5 (3-14) % Eos % (Auto) 0.0 L (2-4) % Baso % (Auto) 0.2 (0-2) % Neut # (Auto) 1900 (4640-0136) /uL Lymph # (Auto) 700 L (7559-5038) /uL [place] # (Auto) 200 (0-900) /uL Eos # (Auto) 0 (0-450) /uL Baso # (Auto) 0 (0-100) /uL D-Dimer 245 H (<230) ng/mL Sodium (137-145) mmol/L Potassium (3.4-5.1) mmol/L Chloride (98-107) mmol/L Carbon Dioxide (22-32) mmol/L BUN (7-17) mg/dL Creatinine (0.52-1.04) mg/dL Estimated GFR (>60) mL/min BUN/Creatinine Ratio (6-22) Glucose (70-100) mg/dL Lactate (0.7-2.1) mmol/L Calcium (8.4-10.2) mg/dL Ferritin (6-137) ng/mL Total Bilirubin (0.2-1.3) mg/dL AST (14-36) IU/L ALT (<35) IU/L Alkaline Phosphatase (38-126) U/L Lactate Dehydrogenase (313-618) U/L Total Creatine Kinase (30-135) U/L CK-MB (CK-2) (<2.37) ng/mL CK-MB (CK-2) Rel Index (1.5-5.0) % Troponin I (0.01-0.034) ng/mL C-Reactive Protein (<1.0) mg/dL NT-Pro-B Natriuret Pep (<125) pg/mL Total Protein (6.3-8.2) g/dL Albumin (3.5-5.0) g/dL Globulin (1.7-4.1) g/dL Albumin/Globulin Ratio (1.0-2.8) Procalcitonin 0.10 (<0.5) ng/mL 05/08/21 05/08/21 05/08/21 Range/Units 13:01 13:01 15:44 WBC (4.5-11.0) X10^3/uL RBC (4.0-5.2) X10^6/uL Hgb (12.0-16.0) g/dL Hct (36-46) % MCV (80-100) fL MCH (26-34) PG MCHC (30-36) % RDW (11.6-14.8) % Plt Count (150-400) X10^3/uL Neut % (Auto) (50-75) % Lymph % (Auto) (25-40) % [place] % (Auto) (3-14) % Eos % (Auto) (2-4) % Baso % (Auto) (0-2) % Neut # (Auto) (7831-0011) /uL Lymph # (Auto) (3116-9759) /uL [place] # (Auto) (0-900) /uL Eos # (Auto) (0-450) /uL Baso # (Auto) (0-100) /uL D-Dimer (<230) ng/mL Sodium 136 L (137-145) mmol/L Potassium 3.5 (3.4-5.1) mmol/L Chloride 103 (98-107) mmol/L Carbon Dioxide 22 (22-32) mmol/L BUN 7 (7-17) mg/dL Creatinine 0.67 (0.52-1.04) mg/dL Estimated GFR > 60.0 (>60) mL/min BUN/Creatinine Ratio 10.4 (6-22) Glucose 99 (70-100) mg/dL Lactate 0.6 L (0.7-2.1) mmol/L Calcium 8.6 (8.4-10.2) mg/dL Ferritin 59 (6-137) ng/mL Total Bilirubin 0.3 (0.2-1.3) mg/dL AST 36 (14-36) IU/L ALT 26 (<35) IU/L Alkaline Phosphatase 63 (38-126) U/L Lactate Dehydrogenase 512 (313-618) U/L Total Creatine Kinase 161 H (30-135) U/L CK-MB (CK-2) 0.59 (<2.37) ng/mL CK-MB (CK-2) Rel Index 0.4 L (1.5-5.0) % Troponin I 0.041 H 0.030 (0.01-0.034) ng/mL C-Reactive Protein 2.0 H (<1.0) mg/dL NT-Pro-B Natriuret Pep 289 H (<125) pg/mL Total Protein 6.8 (6.3-8.2) g/dL Albumin 4.0 (3.5-5.0) g/dL Globulin 2.8 (1.7-4.1) g/dL Albumin/Globulin Ratio 1.4 (1.0-2.8) Procalcitonin (<0.5) ng/mL Imaging Data Chest x-ray: Radiologist's Impression: PROCEDURE: XR CHEST 1V INDICATIONS: flu-like symptoms TECHNIQUE: One view of the chest was acquired. COMPARISON: None. FINDINGS: Surgical changes and devices: None. Lungs and pleura: Left lower lobe infiltrates suspicious for pneumonia. No pleural effusions or pneumothorax. Mediastinum: Mediastinal contours appear normal. Heart size is normal. Bones and chest wall: No suspicious bony lesions. Overlying soft tissues appear unremarkable. IMPRESSION: Left lower lobe infiltrates suspicious for pneumonia. Dictated by: Roman Garcia M.D. on 05/08/2021 at 13:22 Approved by: Roman Garcia M.D. on 05/08/2021 at 13:23 CT angio chest PE protocol: Radiologist's Impression: PROCEDURE: CT ANGIO CHEST PE PROTOCOL INDICATIONS: Chest pain, SOB TECHNIQUE: After the administration of intravenous contrast, 2 mm thick sections acquired from the pulmonary apices to the posterior costophrenic angles. 3-dimensional maximum intensity projection (MIP) coronal and sagittal reformats were then acquired through the thorax. For radiation dose reduction, the following was used: automated exposure control, adjustment of mA and/or kV according to patient size. COMPARISON: None. FINDINGS: Image quality: Excellent. Pulmonary arteries: Pulmonary arteries are normal in size, and demonstrate no intraluminal filling defects to suggest central pulmonary embolism. Lungs and pleura: Multiple airspace opacities and ground-glass opacities are seen scattered in posterior aspect of bilateral upper and lower lobes more prominent in bilateral lower lobes consistent with multilobar infiltrates secondary to atypical viral pneumonia. No pleural effusions or pneumothorax. Central and peripheral airways are patent. Mediastinum: Heart size is normal, without pericardial effusion. No mediastinal or hilar adenopathy. Thoracic aorta is normal in caliber and enhancement. Esophagus is normal in caliber, without hiatal hernia. Bones and chest wall: No suspicious bony lesions. Ribs and thoracic spine appear intact throughout. Thyroid gland is within normal limits. No axillary or supraclavicular adenopathy. Abdomen: Visualized upper abdominal solid organs appear normal in the early arterial phase of enhancement. IMPRESSION: 1. No evidence of pulmonary emboli. No thoracic aortic aneurysm or dissection. 2. Extensive airspace opacities and ground-glass opacities scattered in posterior aspect of bilateral lung puga more prominent in bilateral lower lobes consistent with multilobar infiltrates secondary to COVID-19 infection. 3. No gross mediastinal or hilar lymphadenopathy by size criteria. Dictated by: Julius Vergara M.D. on 05/08/2021 at 14:08 Approved by: Julius Vergara M.D. on 05/08/2021 at 14:10 Echocardiogram limited: Radiologist's Impression: [facility] : : [address] : : : : [id number] : : : : Phone: [phone] Echocardiogram Report + + :Name: MUKUL LOO Study Date: 05/08/2021 Height: 63 in : :[facility] ReadingLocation: Weight: 144 lb: : Gender: Female BSA: 1.7 m2 : :: 1985 Age: 35 yrs : :Reason For Study: Elevated Troponin, COVID +, Chest pain : : Performed By: Adi Villa : :Referring: UNSPECIFIED : + + Interpretation Summary Limited study. Normal left ventricle size with ejection fraction 60-65%. Procedure: A two-dimensional transthoracic echocardiogram with color flow and Doppler was performed in limited views only to assess LVEF. The apical views were difficult to obtain and are suboptimal in quality. There is no prior echocardiogram noted for this patient. The patient was in normal sinus rhythm during the exam. Left Ventricle: The left ventricle is normal in size and wall thickness. The ejection fraction is estimated to be 60-65%. There are no focal wall motion abnormalities. Tricuspid Valve: There is a trace or physiologic amount of tricuspid regurgitation. Great Vessels: The IVC is of normal diameter and collapses less than 50% with a sniff. This suggests a right atrial pressure of 8 mm Hg. Pericardium/ Pleura There is no pericardial effusion. There is an anterior echo-free space consistent with a fat pad. There is no pleural effusion. MMode/2D Measurements & Calculations LVIDd: 4.5 cm IVC diam: 2.0 cm LVIDs: 2.7 cm FS: 40.0 % IVSd: 0.91 cm LVPWd: 1.0 cm LV humphrey. diameter/BSA (cm/m^2): 2.7 LV sys. diameter/BSA (cm/m^2): 1.6 Electronically signed by: Jamar Lees on Reading Physician:05/08/2021 04:22 PM [facility] Narrative Medical decision making narrative: Patient is a 35-year-old female presenting to the emergency department today for evaluation ?pain in heart, and fluctuating heart rate. To consider pulmonary embolism versus supraventricular tachycardia versus COVID-19 versus pneumonia. Limited echo ordered due to elevated troponin and BNP and showed no abnormality. CT angiogram showed no sign pulmonary embolism. Chest x-ray obtained showed a left lower lobe pneumonia, likely a complication of her know COVID-19 diagnosis. Discussed the findings with patient at this time she feels comfortable being discharged home. Strict return precautions have been discussed with the patient prior to discharge. <Estrada Wise MD - Last Filed: 05/09/21 07:28> Lab Data Labs: Lab Results 05/08/21 05/08/21 05/08/21 Range/Units 13:01 13:01 13:01 WBC 2.7 L (4.5-11.0) X10^3/uL RBC 4.02 (4.0-5.2) X10^6/uL Hgb 12.0 (12.0-16.0) g/dL Hct 35.3 L (36-46) % MCV 87.7 (80-100) fL MCH 29.7 (26-34) PG MCHC 33.9 (30-36) % RDW 13.3 (11.6-14.8) % Plt Count 104 L (150-400) X10^3/uL Neut % (Auto) 68.8 (50-75) % Lymph % (Auto) 25.5 (25-40) % [place] % (Auto) 5.5 (3-14) % Eos % (Auto) 0.0 L (2-4) % Baso % (Auto) 0.2 (0-2) % Neut # (Auto) 1900 (6744-4237) /uL Lymph # (Auto) 700 L (8492-4998) /uL [place] # (Auto) 200 (0-900) /uL Eos # (Auto) 0 (0-450) /uL Baso # (Auto) 0 (0-100) /uL D-Dimer 245 H (<230) ng/mL Sodium (137-145) mmol/L Potassium (3.4-5.1) mmol/L Chloride (98-107) mmol/L Carbon Dioxide (22-32) mmol/L BUN (7-17) mg/dL Creatinine (0.52-1.04) mg/dL Estimated GFR (>60) mL/min BUN/Creatinine Ratio (6-22) Glucose (70-100) mg/dL Lactate (0.7-2.1) mmol/L Calcium (8.4-10.2) mg/dL Ferritin (6-137) ng/mL Total Bilirubin (0.2-1.3) mg/dL AST (14-36) IU/L ALT (<35) IU/L Alkaline Phosphatase (38-126) U/L Lactate Dehydrogenase (313-618) U/L Total Creatine Kinase (30-135) U/L CK-MB (CK-2) (<2.37) ng/mL CK-MB (CK-2) Rel Index (1.5-5.0) % Troponin I (0.01-0.034) ng/mL C-Reactive Protein (<1.0) mg/dL NT-Pro-B Natriuret Pep (<125) pg/mL Total Protein (6.3-8.2) g/dL Albumin (3.5-5.0) g/dL Globulin (1.7-4.1) g/dL Albumin/Globulin Ratio (1.0-2.8) Procalcitonin 0.10 (<0.5) ng/mL 05/08/21 05/08/21 05/08/21 Range/Units 13:01 13:01 15:44 WBC (4.5-11.0) X10^3/uL RBC (4.0-5.2) X10^6/uL Hgb (12.0-16.0) g/dL Hct (36-46) % MCV (80-100) fL MCH (26-34) PG MCHC (30-36) % RDW (11.6-14.8) % Plt Count (150-400) X10^3/uL Neut % (Auto) (50-75) % Lymph % (Auto) (25-40) % [place] % (Auto) (3-14) % Eos % (Auto) (2-4) % Baso % (Auto) (0-2) % Neut # (Auto) (2834-0877) /uL Lymph # (Auto) (3628-6073) /uL [place] # (Auto) (0-900) /uL Eos # (Auto) (0-450) /uL Baso # (Auto) (0-100) /uL D-Dimer (<230) ng/mL Sodium 136 L (137-145) mmol/L Potassium 3.5 (3.4-5.1) mmol/L Chloride 103 (98-107) mmol/L Carbon Dioxide 22 (22-32) mmol/L BUN 7 (7-17) mg/dL Creatinine 0.67 (0.52-1.04) mg/dL Estimated GFR > 60.0 (>60) mL/min BUN/Creatinine Ratio 10.4 (6-22) Glucose 99 (70-100) mg/dL Lactate 0.6 L (0.7-2.1) mmol/L Calcium 8.6 (8.4-10.2) mg/dL Ferritin 59 (6-137) ng/mL Total Bilirubin 0.3 (0.2-1.3) mg/dL AST 36 (14-36) IU/L ALT 26 (<35) IU/L Alkaline Phosphatase 63 (38-126) U/L Lactate Dehydrogenase 512 (313-618) U/L Total Creatine Kinase 161 H (30-135) U/L CK-MB (CK-2) 0.59 (<2.37) ng/mL CK-MB (CK-2) Rel Index 0.4 L (1.5-5.0) % Troponin I 0.041 H 0.030 (0.01-0.034) ng/mL C-Reactive Protein 2.0 H (<1.0) mg/dL NT-Pro-B Natriuret Pep 289 H (<125) pg/mL Total Protein 6.8 (6.3-8.2) g/dL Albumin 4.0 (3.5-5.0) g/dL Globulin 2.8 (1.7-4.1) g/dL Albumin/Globulin Ratio 1.4 (1.0-2.8) Procalcitonin (<0.5) ng/mL Discharge Plan Departure Patient Disposition: Home Clinical Impression: Supraventricular tachycardia, COVID-19 Left lower lobe pneumonia Qualifiers: Pneumonia type: due to unspecified organism Qualified Code(s): J18.9 - Pneumonia, unspecified organism Instructions: DI for Atypical Pneumonia Activity Restrictions/Additional Instructions: *You have been diagnosed with atypical left lower lobe pneumonia *What to do: *Please continue to take your regular medications as directed. [ ] New medication prescriptions sent to your pharmacy: [ ] [ ] New medication written as a paper prescription [X] No new medications given *Please follow up with your primary care provider in 2-3 days, call for an appointment. Let them know you were seen in the Emergency Department and that we ask that you be seen in follow up. We will electronically transmit a record of today's note if your PCP is in our system *If you do not have a primary care provider please contact the [facility] Resource line at [phone]. They will ask some questions about your medical history and help get you set up with a doctor in the community. *Return to Emergency Department if you should have any new, worsening or concerning symptoms, such as fever greater than 101 F, shaking chills, worsening chest pain, shortness of breath, persistent vomiting or other bothersome symptoms. Prescriptions: New ondansetron HCl [Zofran] 4 mg tablet 4 mg PO Q8H PRN (Reason: nausea and vomiting) Qty: 30 RF: 0 No Action methocarbamol 500 mg tablet See Rx Instructions PO Q6-8H PRN (Reason: muscle spasm) Qty: 20 RF: 0 Referrals: Ivan Cesar DO [Primary Care Provider] -
[2021-05-08] MEDS: SODIUM CHLORIDE 0.9% 1,000 ML 1000 ML IV ×2 (13:17→15:15)
[2021-05-08] MEDS: ONDANSETRON 4 MG/2 ML INJ IV (13:17)
[2021-05-08] MEDS: KETOROLAC 30 MG/ML VIAL IV (13:17)
[2021-05-08 13:21] LABS: Add Manual Diff / Slide Review NO; Basophils Absolute Auto 0 /uL (0-100); Basophils Percent Auto 0.2 % (0-2); Eosinophils Absolute Auto 0 /uL (0-450); Hematocrit 35.3 % (36-46); Lymphocytes Absolute Auto 700 /uL (1100-4500); Lymphocytes Percent Auto 25.5 % (25-40); Mean Corpuscular HGB Conc 33.9 % (30-36); Mean Corpuscular Hemoglobin 29.7 PG (26-34); Mean Corpuscular Volume 87.7 fL (80-100); Monocytes Absolute Auto 200 /uL (0-900); Monocytes Percent Auto 5.5 % (3-14); Neutrophils Absolute Auto 1900 /uL (1500-7000); Neutrophils Percent Auto 68.8 % (50-75); Platelet Count 104 X10^3/uL (150-400); Red Blood Cell Count 4.02 X10^6/uL (4.0-5.2); Red Cell Distribution Width 13.3 % (11.6-14.8); White Blood Cell Count 2.7 X10^3/uL (4.5-11.0)
[2021-05-08 13:26] LABS: D Dimer 245 ng/mL (<230)
[2021-05-08 13:31] LABS: Lactate (Lactic Acid) 0.6 mmol/L (0.7-2.1)
[2021-05-08 13:35] LABS: Alanine Aminotransferase 26 IU/L (<35); Albumin Globulin Ratio 1.4 (1.0-2.8); Alkaline Phosphatase 63 U/L (38-126); Aspartate Aminotransferase 36 IU/L (14-36); BUN Creatinine Ratio 10.4 (6-22); Bilirubin Total 0.3 mg/dL (0.2-1.3); Blood Urea Nitrogen 7 mg/dL (7-17); Calcium 8.6 mg/dL (8.4-10.2); Carbon Dioxide 22 mmol/L (22-32); Chloride 103 mmol/L (98-107); Creatine Kinase 161 U/L (30-135); Estimated Glomerular Filt Rate > 60.0 mL/min (>60); Globulin 2.8 g/dL (1.7-4.1); Glucose 99 mg/dL (70-100); HEMOLYSIS < 15 (0-50); Lactate Dehydrogenase 512 U/L (313-618); Potassium 3.5 mmol/L (3.4-5.1); Sodium 136 mmol/L (137-145); Total Protein 6.8 g/dL (6.3-8.2)
--- NOTE | 2021-05-08 13:43 | DI.CT.S_ITS ---
PROCEDURE: CT ANGIO CHEST PE PROTOCOL INDICATIONS: Chest pain, SOB TECHNIQUE: After the administration of intravenous contrast, 2 mm thick sections acquired from the pulmonary apices to the posterior costophrenic angles. 3-dimensional maximum intensity projection (MIP) coronal and sagittal reformats were then acquired through the thorax. For radiation dose reduction, the following was used: automated exposure control, adjustment of mA and/or kV according to patient size. COMPARISON: None. FINDINGS: Image quality: Excellent. Pulmonary arteries: Pulmonary arteries are normal in size, and demonstrate no intraluminal filling defects to suggest central pulmonary embolism. Lungs and pleura: Multiple airspace opacities and ground-glass opacities are seen scattered in posterior aspect of bilateral upper and lower lobes more prominent in bilateral lower lobes consistent with multilobar infiltrates secondary to atypical viral pneumonia. No pleural effusions or pneumothorax. Central and peripheral airways are patent. Mediastinum: Heart size is normal, without pericardial effusion. No mediastinal or hilar adenopathy. Thoracic aorta is normal in caliber and enhancement. Esophagus is normal in caliber, without hiatal hernia. Bones and chest wall: No suspicious bony lesions. Ribs and thoracic spine appear intact throughout. Thyroid gland is within normal limits. No axillary or supraclavicular adenopathy. Abdomen: Visualized upper abdominal solid organs appear normal in the early arterial phase of enhancement. IMPRESSION: 1. No evidence of pulmonary emboli. No thoracic aortic aneurysm or dissection. 2. Extensive airspace opacities and ground-glass opacities scattered in posterior aspect of bilateral lung puga more prominent in bilateral lower lobes consistent with multilobar infiltrates secondary to COVID-19 infection. 3. No gross mediastinal or hilar lymphadenopathy by size criteria. Dictated by: Julius Vergara M.D. on 05/08/2021 at 14:08 Approved by: Julius Vergara M.D. on 05/08/2021 at 14:10
[2021-05-08 13:44] LABS: NT-proBNP (BNP-Adult 18+) 289 pg/mL (<125); Troponin I 0.041 ng/mL (0.01-0.034)
[2021-05-08 13:48] LABS: CKMB % Relative Index 0.4 % (1.5-5.0); Creatine Kinase MB 0.59 ng/mL (<2.37)
[2021-05-08 14:07] LABS: Ferritin 59 ng/mL (6-137)
--- NOTE | 2021-05-08 14:10 | PC.NURSE ---
pts bp low 84/48,Benja Giron aware. Pt awake and alert. NS started after CT. will recheck
--- NOTE | 2021-05-08 15:28 | DI.ECHO.S_ITS ---
[place] +---------+ [facility] +---------+ : : [address] : : : : [id number] : : : : Phone: [phone] Echocardiogram Report + + :Name: MUKUL LOO Study Date: 05/08/2021 Height: 63 in : :[facility] ReadingLocation: Weight: 144 lb: : Gender: Female BSA: 1.7 m2 : :: 1985 Age: 35 yrs : :Reason For Study: Elevated Troponin, COVID +, Chest pain : : Performed By: Adi Villa : :Referring: UNSPECIFIED : + + Interpretation Summary Limited study. Normal left ventricle size with ejection fraction 60-65%. Procedure: A two-dimensional transthoracic echocardiogram with color flow and Doppler was performed in limited views only to assess LVEF. The apical views were difficult to obtain and are suboptimal in quality. There is no prior echocardiogram noted for this patient. The patient was in normal sinus rhythm during the exam. Left Ventricle: The left ventricle is normal in size and wall thickness. The ejection fraction is estimated to be 60-65%. There are no focal wall motion abnormalities. Tricuspid Valve: There is a trace or physiologic amount of tricuspid regurgitation. Great Vessels: The IVC is of normal diameter and collapses less than 50% with a sniff. This suggests a right atrial pressure of 8 mm Hg. Pericardium/ Pleura There is no pericardial effusion. There is an anterior echo-free space consistent with a fat pad. There is no pleural effusion. MMode/2D Measurements & Calculations LVIDd: 4.5 cm IVC diam: 2.0 cm LVIDs: 2.7 cm FS: 40.0 % IVSd: 0.91 cm LVPWd: 1.0 cm LV humphrey. diameter/BSA (cm/m^2): 2.7 LV sys. diameter/BSA (cm/m^2): 1.6 Electronically signed by: Jamar Lees on Reading Physician:05/08/2021 04:22 PM
== END 2021-05-08 16:56 | disposition home or self-care (01) ==
PROVIDERS: Emergency Provider Physician Assistant; PCP Family Medicine
DX: U07.1 COVID-19 (principal); J12.82 Pneumonia due to coronavirus disease 2019; I47.1 Supraventricular tachycardia
CPT/HCPCS: 36415; 71045; 71275; 80053; 82550; 82553; 82728; 83605; 83615; 83880; 84145; 84484; 85025; 85379; 86140; 87040; 93005; 93307; 99284; J1885; J2405

== ENCOUNTER 2021-05-08 22:19 | Emergency (ER) | payer OTHER, SELFPAY ==
[2021-05-08 22:25] VITALS: BP 82/58; PULSE 201; RESP 32; O2SAT 93; BMI 26.5
[2021-05-08 22:42] VITALS: PULSE 101; RESP 23; O2SAT 93
--- NOTE | 2021-05-08 22:44 | DI.RAD.S_ITS ---
PROCEDURE: XR CHEST 1V INDICATIONS: chest pain TECHNIQUE: One view of the chest was acquired. COMPARISON: [facility], CT, CT ANGIO CHEST PE PROTOCOL, 05/08/2021, 13:57. [facility], CR, XR CHEST 1V, 05/08/2021, 13:05. FINDINGS: Surgical changes and devices: None. Lungs and pleura: Very subtle scattered patchy airspace opacity. This is better seen on CT earlier today. No pleural effusions or pneumothorax. Mediastinum: Mediastinal contours appear normal. Heart size is normal. Bones and chest wall: No suspicious bony lesions. Overlying soft tissues appear unremarkable. IMPRESSION: Scattered patchy airspace opacity. Suspect multifocal pneumonia. COVID-19 could have this appearance. Dictated by: Denny Carter M.D. on 05/08/2021 at 23:11 Approved by: Denny Carter M.D. on 05/08/2021 at 23:13
[2021-05-08 23:00] VITALS: PULSE 104; RESP 15; O2SAT 93
[2021-05-08 23:00] LABS: Add Manual Diff / Slide Review NO; Basophils Absolute Auto 100 /uL (0-100); Basophils Percent Auto 3.4 % (0-2); Eosinophils Absolute Auto 0 /uL (0-450); Hematocrit 37.4 % (36-46); Hemoglobin 12.5 g/dL (12.0-16.0); Lymphocytes Absolute Auto 600 /uL (1100-4500); Lymphocytes Percent Auto 22.7 % (25-40); Mean Corpuscular HGB Conc 33.5 % (30-36); Mean Corpuscular Hemoglobin 29.3 PG (26-34); Mean Corpuscular Volume 87.5 fL (80-100); Monocytes Absolute Auto 100 /uL (0-900); Monocytes Percent Auto 4.4 % (3-14); Neutrophils Absolute Auto 2000 /uL (1500-7000); Neutrophils Percent Auto 69.5 % (50-75); Platelet Count 76 X10^3/uL (150-400); Red Blood Cell Count 4.28 X10^6/uL (4.0-5.2); White Blood Cell Count 2.9 X10^3/uL (4.5-11.0)
[2021-05-08 23:01] VITALS: BP 92/60; PULSE 104; RESP 17; O2SAT 93
[2021-05-08 23:08] LABS: D Dimer 224 ng/mL (<230)
--- NOTE | 2021-05-08 23:11 | PC.NURSE ---
Patient arrived in SVT, HR in low 200s; vagal maneuver done by MACY Blount and HR subsequently decreased to low 100s; patient felt much better.
[2021-05-08 23:13] LABS: Alanine Aminotransferase 26 IU/L (<35); Albumin 4.1 g/dL (3.5-5.0); Albumin Globulin Ratio 1.4 (1.0-2.8); Alkaline Phosphatase 67 U/L (38-126); Aspartate Aminotransferase 37 IU/L (14-36); BUN Creatinine Ratio 5.8 (6-22); Bilirubin Total 0.3 mg/dL (0.2-1.3); Blood Urea Nitrogen 4 mg/dL (7-17); Calcium 8.4 mg/dL (8.4-10.2); Carbon Dioxide 22 mmol/L (22-32); Chloride 106 mmol/L (98-107); Creatine Kinase 206 U/L (30-135); Estimated Glomerular Filt Rate > 60.0 mL/min (>60); Globulin 2.9 g/dL (1.7-4.1); Glucose 106 mg/dL (70-100); HEMOLYSIS < 15 (0-50); Lipase 584 U/L (23-300); Magnesium 1.8 mg/dL (1.6-2.3); Potassium 3.5 mmol/L (3.4-5.1); Sodium 137 mmol/L (137-145)
[2021-05-08 23:25] LABS: Troponin I 0.045 ng/mL (0.01-0.034)
[2021-05-08 23:28] LABS: CKMB % Relative Index 0.5 % (1.5-5.0); Creatine Kinase MB 0.97 ng/mL (<2.37)
[2021-05-08 23:30] VITALS: BP 93/58; PULSE 98; RESP 19; O2SAT 95
[2021-05-09] VITALS: BP 94/60; PULSE 98; RESP 17; O2SAT 97
[2021-05-09 00:30] VITALS: BP 92/64; PULSE 94; RESP 18; O2SAT 95
[2021-05-09 01:00] VITALS: BP 96/67; PULSE 99; RESP 18; O2SAT 96
--- NOTE | 2021-05-09 01:10 | ED.ARRPALP ---
HPI - Arrhythmia/Palpitations General Chief Complaint: Arrhythmia/Palpitations Stated Complaint: COVID FEVER SOB Time Seen by Provider: 05/08/21 22:46 Source: patient Mode of arrival: Wheelchair Limitations: no limitations History of Present Illness HPI narrative: 35-year-old woman on day 10 of COVID 2nd visit within 12 hours for worsening symptoms. Was discharged home earlier today after CT scan in full workup showed no indication for hospital admission. She felt her heart began racing and presents in a supraventricular tachycardia at the 180-190 range. In general over the past weeks to having all of her typical COVID symptoms including fevers, cough, chills, vomiting, abdominal pain, diarrhea, loss of taste and smell, extreme fatigue. She is quite anxious that this is going to get worse. Was her anxiety that prevented her from being vaccinated initially and she is very much regarding that now. Related Data Previous Rx's Medication Instructions Recorded methocarbamol 500 mg tablet See Rx Instructions PO Q6-8H PRN 05/05/21 #20 tab ondansetron HCl 4 mg tablet 4 mg PO Q8H PRN #30 tab 05/08/21 (Zofran) Allergies Allergy/AdvReac Type Severity Reaction Status Date / Time No Known Drug Allergies Allergy Verified 05/08/21 22:40 Review of Systems Review of Systems Narrative: Remainder of complete review of systems is otherwise unremarkable except for that included in the HPI. Patient History Medical History Anxiety and depression Back pain Bruxism (teeth grinding) Dysmenorrhea Dyspareunia in female Family history of endometriosis History of migraine with aura Menometrorrhagia Pelvic pain in female Premenstrual dysphoric syndrome Restless legs Weight gain due to medication Surgical History Anesthesia History of tonsillectomy (~1994) Family History Father Diabetes mellitus Aortic stenosis History of heart disease Hypertension Mental health problem Depression Anxiety Mother Anemia Hypoglycemic syndrome Grandfather History of heart disease Hyperlipidemia Grandmother Hyperlipidemia Mental health problem Anxiety Grandfather Diabetes mellitus Mental health problem Anxiety Depression Social History Smoking Status: Never smoker Smoking Status: Never smoker alcohol intake frequency: 0-2 drinks per day Substance Use Type: does not use Exam Narrative Exam Narrative: General: Mildly ill appearing but Able to give a complete and coherent history. Well-nourished well-developed HEENT: Moist mucous membranes, normal sclera with reactive pupils, Respiratory: Lungs with minor her rhonchi in the left base, no wheeze and Full and symmetrical air movement Cardiac: Regular rate and rhythm no murmurs no bruits Abdomen: Soft, nontender, good bowel tones, no flank pain Skin: Warm and dry, no rashes Neurologic: Grossly neurologically intact with no obvious asymmetries or abnormalities Extremities: No trauma, well perfused Psych: Cooperative, appropriate insight and affect Initial Vital Signs Initial Vital Signs: Vital Signs Pulse Rate 201 H 05/08/21 22:25 Respiratory Rate 32 H 05/08/21 22:25 Blood Pressure 82/58 L 05/08/21 22:25 Pulse Oximetry 93 05/08/21 22:25 Course Orders Ordered: ED Orders 05/08/21 22:44 XR chest 1V Stat EKG-12 Lead Stat 05/08/21 22:47 Complete Blood Count AUTO DIFF Stat Comprehensive Metabolic Panel Stat D Dimer Stat Lipase Stat Magnesium Stat Troponin & CK Cardiac Panel Stat Vital Signs Vital signs: Vital Signs - 8 hr 05/08/21 22:25 05/08/21 22:42 05/08/21 23:00 Pulse Rate 201 H 101 H 104 H Respiratory Rate 32 H 23 15 Blood Pressure 82/58 L Pulse Oximetry 93 93 93 05/08/21 23:01 05/08/21 23:30 05/09/21 00:00 Pulse Rate 104 H 98 H 98 H Respiratory Rate 17 19 17 Blood Pressure 92/60 93/58 L 94/60 Pulse Oximetry 93 95 97 05/09/21 00:30 05/09/21 01:00 05/09/21 01:30 Pulse Rate 94 H 99 H 91 H Respiratory Rate 18 18 13 Blood Pressure 92/64 96/67 97/67 Pulse Oximetry 95 96 95 MDM - Arrhythmia/Palpitations Lab Data Result diagrams: 05/08/21 22:47 05/08/21 22:47 Labs: Lab Results 05/08/21 05/08/21 05/08/21 Range/Units 22:47 22:47 22:47 WBC 2.9 L (4.5-11.0) X10^3/uL RBC 4.28 (4.0-5.2) X10^6/uL Hgb 12.5 (12.0-16.0) g/dL Hct 37.4 (36-46) % MCV 87.5 (80-100) fL MCH 29.3 (26-34) PG MCHC 33.5 (30-36) % RDW 13.0 (11.6-14.8) % Plt Count 76 L (150-400) X10^3/uL Neut % (Auto) 69.5 (50-75) % Lymph % (Auto) 22.7 L (25-40) % [place] % (Auto) 4.4 (3-14) % Eos % (Auto) 0.0 L (2-4) % Baso % (Auto) 3.4 H (0-2) % Neut # (Auto) 2000 (3627-3723) /uL Lymph # (Auto) 600 L (5722-2269) /uL [place] # (Auto) 100 (0-900) /uL Eos # (Auto) 0 (0-450) /uL Baso # (Auto) 100 (0-100) /uL D-Dimer 224 (<230) ng/mL Sodium 137 (137-145) mmol/L Potassium 3.5 (3.4-5.1) mmol/L Chloride 106 (98-107) mmol/L Carbon Dioxide 22 (22-32) mmol/L BUN 4 L (7-17) mg/dL Creatinine 0.69 (0.52-1.04) mg/dL Estimated GFR > 60.0 (>60) mL/min BUN/Creatinine Ratio 5.8 L (6-22) Glucose 106 H (70-100) mg/dL Calcium 8.4 (8.4-10.2) mg/dL Magnesium 1.8 (1.6-2.3) mg/dL Total Bilirubin 0.3 (0.2-1.3) mg/dL AST 37 H (14-36) IU/L ALT 26 (<35) IU/L Alkaline Phosphatase 67 (38-126) U/L Total Creatine Kinase 206 H (30-135) U/L CK-MB (CK-2) 0.97 D (<2.37) ng/mL CK-MB (CK-2) Rel Index 0.5 L (1.5-5.0) % Troponin I 0.045 H (0.01-0.034) ng/mL Total Protein 7.0 (6.3-8.2) g/dL Albumin 4.1 (3.5-5.0) g/dL Globulin 2.9 (1.7-4.1) g/dL Albumin/Globulin Ratio 1.4 (1.0-2.8) Lipase 584 H (23-300) U/L Imaging Data Chest x-ray: Radiologist's Impresson: FINDINGS:? ? Surgical changes and devices:? None.? ? Lungs and pleura:? Very subtle scattered patchy airspace opacity.? This is better seen on CT earlier today.? No pleural effusions or pneumothorax.? ? Mediastinum:? Mediastinal contours appear normal.? Heart size is normal.? ? Bones and chest wall:? No suspicious bony lesions.? Overlying soft tissues appear unremarkable.? ? IMPRESSION:? Scattered patchy airspace opacity.? Suspect multifocal pneumonia.? COVID-19 could have this appearance. ? ? Dictated by: Denny Carter M.D. on 05/08/2021 at 23:11 ? ? CT scan - chest: Radiologist's Impresson: Scan from earlier visit today, 2:00 p.m. this afternoon FINDINGS:? Image quality:? Excellent.? ? Pulmonary arteries:? Pulmonary arteries are normal in size, and demonstrate no intraluminal filling defects to suggest central pulmonary embolism.? ? Lungs and pleura:? Multiple airspace opacities and ground-glass opacities are seen scattered in posterior aspect of bilateral upper and lower lobes more prominent in bilateral lower lobes consistent with multilobar infiltrates secondary to atypical viral pneumonia.? No pleural effusions or pneumothorax.? Central and peripheral airways are patent.? ? Mediastinum:? Heart size is normal, without pericardial effusion.? No mediastinal or hilar adenopathy.? Thoracic aorta is normal in caliber and enhancement.? Esophagus is normal in caliber, without hiatal hernia.? ? Bones and chest wall:? No suspicious bony lesions.? Ribs and thoracic spine appear intact throughout.? Thyroid gland is within normal limits.? No axillary or supraclavicular adenopathy.? ? Abdomen:? Visualized upper abdominal solid organs appear normal in the early arterial phase of enhancement.? ? IMPRESSION:? 1. No evidence of pulmonary emboli.? No thoracic aortic aneurysm or dissection. 2. Extensive airspace opacities and ground-glass opacities scattered in posterior aspect of bilateral lung puga more prominent in bilateral lower lobes consistent with multilobar infiltrates secondary to COVID-19 infection. 3. No gross mediastinal or hilar lymphadenopathy by size criteria. ? ? Dictated by: Julius Vergara M.D. on 05/08/2021 at 14:08 ? ? ECG Data Interpretation: 22:30 Supraventricular tachycardia at a rate of 192 ST depression appreciated With Valsalva maneuver and leg raise, she converts spontaneously at approximately 10:33 pm 22:35 Sinus tach at a rate of [address] T wave abnormalities MDM Narrative Medical decision making narrative: 35-year-old woman on day 10 of COVID symptoms. With in earlier today complaining of general malaise, chest pain workup at that time had slightly elevated D-dimer and a CT scan of the chest was done that did not show any evidence of pulmonary embolism. Similarly it did not show suggested consolidated bacterial pneumonia findings. Entirely consistent with COVID. Oxygen saturations are consistently in the 96-98% range. She is managing to drink but having difficulty eating. Notes that she just generally feels unwell and is quite anxious over her COVID diagnosis. Comes in with a episode of supraventricular tachycardia that spontaneously converted with vagal maneuvers and lifting her legs. She and her are both instructed and had a repeat these maneuvers at home. Lab work is essentially unchanged. Her troponin from earlier today was slightly elevated and then had gone down with a 2nd blood check. Was again slightly elevated consistent with her rapid rate. At this point I do not see any evidence for acute coronary syndrome. Given her negative CTA approximately 8 hours ago I do not think that there is any indication to repeat this study. At 10 days and with minimal medical history she is not going to be an appropriate monoclonal antibody candidate. She does have home oxygen saturation monitor available. Unfortunately, time is what she needs at this point. Reassurance is given. Asked her to continue to monitor her home saturations. CT scan and chest x-ray both show the majority of her bilateral infiltrates and consolidated findings are the left posterior base of her lung which correlates with her clinical exam and physical complaints of pain. At this time she is safe for home discharge with continued close monitoring. Discharge Plan Departure Patient Disposition: Home Clinical Impression: COVID-19, SVT (supraventricular tachycardia) Instructions: DI for Paroxysmal Supraventricular Tachycardia Activity Restrictions/Additional Instructions: Thank you for coming back this evening You had an episode of supraventricular tachycardia. It went away with blowing out on the syringe and putting her legs rapidly up in the air -this is a trick you can absolutely do at home if you notice at coming back In comparing your lab work from this evening to your lab work from this afternoon, there are no significant changes. Your chest x-ray and CT scan from the afternoon have not gotten worse. You do not have blood clots in your lungs and you are not having a heart attack. Your oxygen level when your getting a good measurement is still well above 95% and this is very reassuring. If you are finding with a good heart rate reading on the oxygen saturation monitor that your oxygen levels are consistently below 94% you need to return to the emergency department Still, there is no indication for anything aside from COVID. No bacterial pneumonia or superinfection. Using 400 mg of ibuprofen (2 [id number] pills) and 1 Tylenol every 6 hours can be very helpful in controlling pain. You can use the nausea medicine that your given earlier today You still have some healing time to go but I think that you are beginning to heal. Prescriptions: No Action methocarbamol 500 mg tablet See Rx Instructions PO Q6-8H PRN (Reason: muscle spasm) Qty: 20 RF: 0 ondansetron HCl [Zofran] 4 mg tablet 4 mg PO Q8H PRN (Reason: nausea and vomiting) Qty: 30 RF: 0 Referrals: Ivan Cesar DO [Primary Care Provider] -
[2021-05-09 01:30] VITALS: BP 97/67; PULSE 91; RESP 13; O2SAT 95
== END 2021-05-09 02:05 | disposition home or self-care (01) ==
PROVIDERS: Emergency Provider Emergency Medicine; PCP Family Medicine
DX: U07.1 COVID-19 (principal); J12.82 Pneumonia due to coronavirus disease 2019; I47.1 Supraventricular tachycardia; R79.1 Abnormal coagulation profile
CPT/HCPCS: 36415; 71045; 71275; 80053; 82550; 82553; 82728; 83605; 83615; 83690; 83735; 83880; 84145; 84484; 85025; 85379; 86140; 87040; 93005; 93010; 93307; 96361; 96374; 96375; 99283; 99284; J1885; J2405

== ENCOUNTER 2021-05-10 02:33 | Emergency (ER) | payer OTHER, SELFPAY ==
[2021-05-10] VITALS (8 sets, daily range): BP systolic 78–105; BP diastolic 46–68; PULSE 81–99; RESP 18; TEMP 37; O2SAT 90–94; BMI 26.5
--- NOTE | 2021-05-10 02:59 | ED_ITS ---
HPI - SOB/Dyspnea General Chief Complaint: Shortness of Breath/Dyspnea Stated Complaint: oxygen levels below 90 Time Seen by Provider: 05/10/21 02:47 Source: patient Mode of arrival: Ambulatory Limitations: no limitations History of Present Illness HPI Narrative: Patient is a 35-year-old female who is known COVID positive presenting today for the time to the emergency department since April night. She apparently was diagnosed fall high days ago, but started having symptoms last week. She says that she is on day 10 of COVID she is not vaccinated. She actually had an episode of SVT last night she was cardioverted. Her heart is feeling much better however today she was coughing and could not breathe and noticed that her oxygen was at 84%. She took some deep breaths it went up to 88% and decided that she did not feel well and needed to come to the emergency department. Oxygen here is 91-92% on room air while resting. It was noted yesterday that she did actually have some thrombocytopenia she actually had blood work done twice yesterday. Her workup also included a CT angio of her chest which was negative. Related Data Previous Rx's Medication Instructions Recorded methocarbamol 500 mg tablet See Rx Instructions PO Q6-8H PRN 05/05/21 #20 tab ondansetron HCl 4 mg tablet 4 mg PO Q8H PRN #30 tab 05/08/21 (Zofran) ondansetron 4 mg disintegrating 4 mg PO Q8H PRN #10 tab 05/10/21 tablet Allergies Allergy/AdvReac Type Severity Reaction Status Date / Time No Known Drug Allergies Allergy Verified 05/08/21 22:40 Review of Systems Review of Systems Narrative: GENERAL: Denies chills, fatigue, malaise, fever, sweats, travel HEENT: Denies sinus pain, ear pain, sore throat, difficulty swallowing, neck pain RESPIRATORY: See HPI CARDIOVASCULAR: Denies chest pain, palpitations, orthopnea, edema GASTROINTESTINAL: Denies nausea, vomiting, abdominal pain, diarrhea, constipation, melena. : Denies dysuria, frequency, incontinence, hematuria, urinary retention, flank pain. MUSCULOSKELETAL: Denies weakness, joint pain, or bony pain SKIN: No rash, no erythema, no pruritus NEUROLOGIC: Denies weakness, dizziness, headache, numbness, change in speech, confusion PSYCHIATRIC: No concerning psychosocial issues. 12 point review of systems is negative except for those stated above and HPI Patient History Medical History Anxiety and depression Back pain Bruxism (teeth grinding) Dysmenorrhea Dyspareunia in female Family history of endometriosis History of migraine with aura Menometrorrhagia Pelvic pain in female Premenstrual dysphoric syndrome Restless legs Weight gain due to medication Surgical History Anesthesia History of tonsillectomy (~1994) Family History Father Diabetes mellitus Aortic stenosis History of heart disease Hypertension Mental health problem Depression Anxiety Mother Anemia Hypoglycemic syndrome Grandfather History of heart disease Hyperlipidemia Grandmother Hyperlipidemia Mental health problem Anxiety Grandfather Diabetes mellitus Mental health problem Anxiety Depression Social History Smoking Status: Never smoker Smoking Status: Never smoker alcohol intake frequency: 0-2 drinks per day Substance Use Type: does not use Exam Initial Vital Signs Initial Vital Signs: Vital Signs Temperature 98.6 F 05/10/21 02:46 Pulse Rate 98 H 05/10/21 02:46 Respiratory Rate 18 05/10/21 02:46 Blood Pressure 105/68 05/10/21 02:46 Pulse Oximetry 92 05/10/21 02:46 GENERAL: Alert well-appearing 35-year-old female in no acute distress. HEENT: Head atraumatic,EOMI, pupils reactive, face symmetric, moist mucous membranes CARDIOVASCULAR: Regular rate and rhythm without murmurs, rubs or gallops. RESPIRATORY: Breath sounds equal bilaterally, no wheezes rales or rhonchi. ABDOMEN: Soft, nontender. Normoactive bowel sounds all 4 quadrants. No guarding or rebound. EXTREMITIES: Normal range of motion, no clubbing or edema. Neurovascularly intact NEUROLOGICAL: Alert and oriented x4.Normal gait and speech. SKIN: Warm, dry, no laceration, no petechiae, no rashes or lesions. Course Orders Ordered: ED Orders 05/10/21 03:10 Complete Blood Count AUTO DIFF Stat Comprehensive Metabolic Panel Stat Discontinued Medications Ondansetron HCl (Ondansetron 4 Mg/2 Ml Inj) 4 mg IV NOW ONE Stop: 05/10/21 04:10 Last Admin: 05/10/21 04:15 Dose: 4 mg Documented by: Vital Signs Vital signs: Vital Signs - 8 hr 05/10/21 02:46 05/10/21 02:59 05/10/21 03:00 Temperature 98.6 F Pulse Rate 98 H 99 H 96 H Respiratory Rate 18 Blood Pressure 105/68 95/59 L Pulse Oximetry 92 92 93 05/10/21 03:07 05/10/21 03:12 05/10/21 03:30 Temperature Pulse Rate 81 87 90 Respiratory Rate Blood Pressure 78/46 L 89/54 L 92/59 L Pulse Oximetry 94 90 L 90 L 05/10/21 03:48 05/10/21 04:00 Temperature Pulse Rate 94 H 96 H Respiratory Rate Blood Pressure 97/66 97/65 Pulse Oximetry 92 93 MDM - SOB/Dyspnea Lab Data Result diagrams: 05/10/21 03:10 05/10/21 03:10 Labs: Lab Results 05/10/21 05/10/21 Range/Units 03:10 03:10 WBC 4.9 D (4.5-11.0) X10^3/uL RBC 4.08 (4.0-5.2) X10^6/uL Hgb 11.9 L (12.0-16.0) g/dL Hct 35.9 L (36-46) % MCV 87.9 (80-100) fL MCH 29.2 (26-34) PG MCHC 33.3 (30-36) % RDW 13.2 (11.6-14.8) % Plt Count 118 L (150-400) X10^3/uL Neut % (Auto) 83.9 H (50-75) % Lymph % (Auto) 13.7 L (25-40) % [place] % (Auto) 2.3 L (3-14) % Eos % (Auto) 0.0 L (2-4) % Baso % (Auto) 0.1 (0-2) % Neut # (Auto) 4100 (1028-2699) /uL Lymph # (Auto) 700 L (4301-3346) /uL [place] # (Auto) 100 (0-900) /uL Eos # (Auto) 0 (0-450) /uL Baso # (Auto) 0 (0-100) /uL Sodium 138 (137-145) mmol/L Potassium 3.3 L (3.4-5.1) mmol/L Chloride 104 (98-107) mmol/L Carbon Dioxide 23 (22-32) mmol/L BUN 3 L (7-17) mg/dL Creatinine 0.62 (0.52-1.04) mg/dL Estimated GFR > 60.0 (>60) mL/min BUN/Creatinine Ratio 4.8 L (6-22) Glucose 107 H (70-100) mg/dL Calcium 8.4 (8.4-10.2) mg/dL Total Bilirubin 0.4 (0.2-1.3) mg/dL AST 42 H (14-36) IU/L ALT 28 (<35) IU/L Alkaline Phosphatase 57 (38-126) U/L Total Protein 6.5 (6.3-8.2) g/dL Albumin 3.7 (3.5-5.0) g/dL Globulin 2.8 (1.7-4.1) g/dL Albumin/Globulin Ratio 1.3 (1.0-2.8) MDM Narrative Medical decision making narrative: Patient had 2 episodes of SVT yesterday she is currently in sinus rhythm O2 sat on room air is anywhere from 90-95%. She ambulates in a does drop to about 88 but then comes up. Basic blood work is overall improved thrombocytopenia it is improved there is likely a delusional affect after the 3 L of fluid she had. Blood pressure is slightly low but appears similar to multiple previous blood pressures from yesterday. All this time she does not quite meet admission criteria but is certainly on the cusp. She is on day 11 of the disease process she said she was actually starting to feel bit better. Recommend going home and closely monitoring oxygen. I have instructed her how to do this I have out instructed her on self pronating as well. But this time all questions have been answered. She is definitely quite anxious about having COVID. Discharge Plan Departure Patient Disposition: Home Clinical Impression: COVID Instructions: DI for COVID-19 (Suspected or Confirmed ) Activity Restrictions/Additional Instructions: * if you have not yet been vaccinated is still recommended and encouraged that you do so once your infection has passed MEDICATION: Zofran 4 mg every 8 hours if needed for nausea or vomiting-->[facility] At home: -Monitor oxygen with pulse oximeter. If less than 90% for more than 1 hour please return to emergency department. -I recommend lying on side were stomach rather than back, this has been proven to increase oxygen level -Wash hands frequently. -Stay isolated at home please follow the isolation instructions below. -Increase fluid intake. -you may take Tylenol as directed if needed for pain or fever Emergency warning signs for COVID-19: - Difficulty breathing or shortness of breath, oxygen less than 90% - Persistent pain or pressure in the chest - New confusion or inability to arouse - Bluish lips or face CDC Guidelines for home isolation: - Stay away from others - Limit contact with pets and animals: If you must care for a pet, wash your hands before and after interacting with them - Wear a mask while in public all places - Cover your mouth and nose with a tissue when you cough or sneeze. Dispose of tissues in a lined trash can and wash your hands immediately with soap and water for at least 20 seconds. If soap and water are not available, clean hands with alcohol-based hand freight and passenger agent that contains at least 60% alcohol. - Clean your hands often with soap and water for at least 20 seconds - Avoid touching your eyes, nose and mouth with unwashed hands - Do not share dishes, drinking glasses, cups, eating utensils, towels, or bedding with other people in your home. After using these items, wash them thoroughly with soap and water or put in the eye dropper assembler. - Clean high-touch surfaces in your isolation area (?sick room? and bathroom) every day; let a caregiver clean and disinfect high-touch surfaces in other areas of the home. Clean the area or item with soap and water or another detergent if it is dirty. Then, use a household disinfectant. Prescriptions: New ondansetron 4 mg tablet,disintegrating 4 mg PO Q8H PRN (Reason: nausea and vomiting) Qty: 10 RF: 0 No Action methocarbamol 500 mg tablet See Rx Instructions PO Q6-8H PRN (Reason: muscle spasm) Qty: 20 RF: 0 ondansetron HCl [Zofran] 4 mg tablet 4 mg PO Q8H PRN (Reason: nausea and vomiting) Qty: 30 RF: 0 Referrals: Ivan Cesar DO [Primary Care Provider] -
[2021-05-10 03:27] LABS: Add Manual Diff / Slide Review NO; Basophils Absolute Auto 0 /uL (0-100); Basophils Percent Auto 0.1 % (0-2); Eosinophils Absolute Auto 0 /uL (0-450); Hematocrit 35.9 % (36-46); Hemoglobin 11.9 g/dL (12.0-16.0); Lymphocytes Absolute Auto 700 /uL (1100-4500); Lymphocytes Percent Auto 13.7 % (25-40); Mean Corpuscular HGB Conc 33.3 % (30-36); Mean Corpuscular Hemoglobin 29.2 PG (26-34); Mean Corpuscular Volume 87.9 fL (80-100); Monocytes Absolute Auto 100 /uL (0-900); Monocytes Percent Auto 2.3 % (3-14); Neutrophils Absolute Auto 4100 /uL (1500-7000); Neutrophils Percent Auto 83.9 % (50-75); Platelet Count 118 X10^3/uL (150-400); Red Blood Cell Count 4.08 X10^6/uL (4.0-5.2); Red Cell Distribution Width 13.2 % (11.6-14.8); White Blood Cell Count 4.9 X10^3/uL (4.5-11.0)
[2021-05-10 03:31] LABS: Alanine Aminotransferase 28 IU/L (<35); Albumin 3.7 g/dL (3.5-5.0); Albumin Globulin Ratio 1.3 (1.0-2.8); Alkaline Phosphatase 57 U/L (38-126); Aspartate Aminotransferase 42 IU/L (14-36); BUN Creatinine Ratio 4.8 (6-22); Bilirubin Total 0.4 mg/dL (0.2-1.3); Blood Urea Nitrogen 3 mg/dL (7-17); Calcium 8.4 mg/dL (8.4-10.2); Carbon Dioxide 23 mmol/L (22-32); Chloride 104 mmol/L (98-107); Estimated Glomerular Filt Rate > 60.0 mL/min (>60); Globulin 2.8 g/dL (1.7-4.1); Glucose 107 mg/dL (70-100); HEMOLYSIS < 15 (0-50); Potassium 3.3 mmol/L (3.4-5.1); Sodium 138 mmol/L (137-145); Total Protein 6.5 g/dL (6.3-8.2)
[2021-05-10] MEDS: ONDANSETRON 4 MG/2 ML INJ IV (04:15)
== END 2021-05-10 04:48 | disposition home or self-care (01) ==
PROVIDERS: Emergency Provider Emergency Medicine; PCP Family Medicine
DX: U07.1 COVID-19 (principal); D69.6 Thrombocytopenia, unspecified
CPT/HCPCS: 36415; 80053; 85025; J2405

== ENCOUNTER 2021-05-10 19:26 | Inpatient (IN) | payer OTHER, SELFPAY ==
[2021-05-10] VITALS (9 sets, daily range): BP systolic 101–117; BP diastolic 63–69; PULSE 97–108; RESP 20–33; TEMP 37.2–37.9; O2SAT 91–98; BMI 22.1
--- NOTE | 2021-05-10 19:34 | ED.SOB ---
HPI - SOB/Dyspnea General Chief Complaint: Shortness of Breath/Dyspnea Stated Complaint: SOB COVID Time Seen by Provider: 05/10/21 19:33 History of Present Illness HPI Narrative: 35-year-old female nonsmoker presents with worsening symptoms consisting of shortness of breath. She has known COVID and is on day 10 or 11. She was unvaccinated. We have seen her multiple times for symptoms of shortness of breath. She has episodes of SVT requiring conversion as well. She has had very extensive workups and has not met admission criteria. She has had echocardiogram and CT scan of the chest with PE protocol. Return precautions suggested she present to the emergency department if she has multiple hours of resting pulse ox in the 80s. She states that earlier today she took a shower and her sats dropped into the 70s and she was in the 80s for upwards of 8 hours hence her decision to come see us. She states that she is admittedly anxious and is having trouble sleeping, minimal exertion makes her profoundly short of breath. In walking from the triage room to her exam room she becomes visibly tachypneic with use of accessory muscles, additionally her pulse ox drops into the low 80s Related Data Previous Rx's Medication Instructions Recorded methocarbamol 500 mg tablet See Rx Instructions PO Q6-8H PRN 05/05/21 #20 tab ondansetron HCl 4 mg tablet 4 mg PO Q8H PRN #30 tab 05/08/21 (Zofran) ondansetron 4 mg disintegrating 4 mg PO Q8H PRN #10 tab 05/10/21 tablet Allergies Allergy/AdvReac Type Severity Reaction Status Date / Time No Known Drug Allergies Allergy Verified 05/08/21 22:40 Review of Systems Review of Systems Narrative: GENERAL: Denies chills, fatigue, malaise, fever, sweats. HEENT: Denies sinus pain, ear pain, sore throat, difficulty swallowing, dizziness. RESPIRATORY: see HPI CARDIOVASCULAR: Denies chest pain, palpitations, orthopnea, edema, GASTROINTESTINAL: Denies nausea, vomiting, abdominal pain, diarrhea, constipation, melena. : Denies dysuria, frequency, incontinence, hematuria, urinary retention. MUSCULOSKELETAL: denies weakness, joint pain, or bony pain SKIN: Denies rash, skin lesions, or other NEUROLOGIC: Denies weakness, headache, numbness, change in speech, confusion, seizures, incoordination. PSYCHIATRIC: see HPI 12 point review of systems is negative except for those stated above Patient History Medical History Anxiety and depression Back pain Bruxism (teeth grinding) Dysmenorrhea Dyspareunia in female Family history of endometriosis History of migraine with aura Menometrorrhagia Pelvic pain in female Premenstrual dysphoric syndrome Restless legs Weight gain due to medication Surgical History Anesthesia History of tonsillectomy (~1994) Family History Father Diabetes mellitus Aortic stenosis History of heart disease Hypertension Mental health problem Depression Anxiety Mother Anemia Hypoglycemic syndrome Grandfather History of heart disease Hyperlipidemia Grandmother Hyperlipidemia Mental health problem Anxiety Grandfather Diabetes mellitus Mental health problem Anxiety Depression Social History household members: family Smoking Status: Never smoker Smoking Status: Never smoker alcohol intake frequency: 0-2 drinks per day Substance Use Type: does not use Exam Narrative Exam Narrative: GENERAL: 35 [] year old patient appears stated age. Well-developed patient, in mild distress. HEAD: Atraumatic. Normocephalic. EYES: Pupils equal round and reactive. Extraocular motions intact. No scleral icterus. No injection or drainage. ENT: Nose without bleeding, purulent drainage. Throat without erythema, tonsillar hypertrophy or exudate. Airway patent. NECK: Trachea midline. Non tender CARDIOVASCULAR: Regular rate and rhythm without murmurs, gallops, or rubs. RESPIRATORY: Clear to auscultation. Breath sounds equal bilaterally. No wheezes, rales, or rhonchi. GASTROINTESTINAL: Abdomen soft, non-tender, nondistended. EXTREMITIES: No edema or joint tenderness. BACK: Nontender without deformity or crepitance. No flank tenderness. NEURO: AOx3. SKIN: No rash or erythema of visible areas Initial Vital Signs Initial Vital Signs: Vital Signs Temperature 99.0 F 05/10/21 19:36 Pulse Rate 108 H 05/10/21 19:36 Respiratory Rate 24 05/10/21 19:36 Blood Pressure 101/65 05/10/21 19:36 Pulse Oximetry 91 05/10/21 19:36 Course Orders Ordered: ED Orders 05/10/21 19:36 XR chest 1V Stat 05/10/21 20:42 Arterial Blood Gas Stat 05/10/21 20:55 C-Reactive Protein Quant Stat Complete Blood Count AUTO DIFF Stat Comprehensive Metabolic Panel Stat D Dimer Stat Ferritin Stat Lactate Dehydrogenase Stat NT-proBNP (BNP-Adult 18+) Stat Procalcitonin Stat Troponin & CK Cardiac Panel Stat Acetaminophen (Acetaminophen 325 Mg Tablet) 650 mg PO Q6HR PRN PRN Reason: Fever/Mild Pain (1-3) Dexamethasone (Dexamethasone 10 Mg/Ml Vial) 6 mg IV BEDTIME RICHIE Enoxaparin Sodium (Enoxaparin 60 Mg/0.6 Ml Syringe) 40 mg SUBCUT BID RICHIE Last Admin: 05/11/21 00:05 Dose: 40 mg Documented by: ISABELLA Remdesivir 100 mg/ Sodium (Chloride) 250 mls @ 250 mls/hr IV BEDTIME RICHIE Stop: 05/19/21 21:59 Lorazepam (Lorazepam 1 Mg Tablet) 1 mg PO BEDTIME PRN PRN Reason: Sleep Melatonin (Melatonin 3 Mg Tablet) 6 mg PO BEDTIME RICHIE Morphine Sulfate (Morphine 2 Mg/Ml Inj) 2 mg IV Q4HR PRN PRN Reason: Pain, Moderate (4-6) Naloxone HCl (Naloxone 0.4 Mg/Ml Vial) 0.2 mg IV Q2MIN PRN PRN Reason: Opiate Reversal Ondansetron HCl (Ondansetron 4 Mg/2 Ml Inj) 4 mg IV Q6HR PRN PRN Reason: Nausea And Vomiting Potassium Chloride (Potassium Chloride 20 Meq Tab) 40 meq PO NOW ONE Stop: 05/11/21 05:01 Sodium Chloride (Sodium Chloride 0.9% Flush) 10 ml IV PRN PRN PRN Reason: Flush Sodium Chloride (Sodium Chloride 0.9% Flush) 10 ml IV BID RICHIE Discontinued Medications Dexamethasone (Dexamethasone 10 Mg/Ml Vial) 6 mg IV NOW ONE Stop: 05/10/21 21:38 Last Admin: 05/10/21 22:18 Dose: 6 mg Documented by: LINDA Remdesivir 200 mg/ Sodium (Chloride) 250 mls @ 250 mls/hr IV NOW ONE Stop: 05/10/21 22:36 Last Infusion: 05/11/21 00:05 Dose: 0 mls/hr Documented by: Infusion: 05/10/21 22:45 Dose: 250 mls/hr Documented by: Infusion: 05/10/21 22:19 Dose: 0 mls/hr Documented by: Admin: 05/10/21 22:18 Dose: 250 mls/hr Documented by: LINDA Vital Signs Vital signs: Vital Signs - 8 hr 05/10/21 21:16 05/10/21 21:22 05/10/21 21:30 Pulse Rate 103 H 101 H 97 H Respiratory Rate 24 24 Blood Pressure 117/66 103/63 Pulse Oximetry 95 95 93 MDM - SOB/Dyspnea Lab Data Result diagrams: 05/10/21 20:55 05/10/21 20:55 Labs: Lab Results 05/10/21 05/10/21 05/10/21 Range/Units 20:42 20:55 20:55 WBC (4.5-11.0) X10^3/uL RBC (4.0-5.2) X10^6/uL Hgb (12.0-16.0) g/dL Hct (36-46) % MCV (80-100) fL MCH (26-34) PG MCHC (30-36) % RDW (11.6-14.8) % Plt Count (150-400) X10^3/uL Neut % (Auto) (50-75) % Lymph % (Auto) (25-40) % [place] % (Auto) (3-14) % Eos % (Auto) (2-4) % Baso % (Auto) (0-2) % Neut # (Auto) (0504-9251) /uL Lymph # (Auto) (7150-8532) /uL [place] # (Auto) (0-900) /uL Eos # (Auto) (0-450) /uL Baso # (Auto) (0-100) /uL D-Dimer 524 H (<230) ng/mL ABG pH 7.47 H (7.35-7.45) ABG pCO2 28.8 L (35-45) mmHg ABG pO2 58 L (80-100) mmHg ABG HCO3 21 L (22-26) mmol/L ABG Total CO2 22 (21-31) mmol/L ABG O2 Saturation 92 L (95-100) % ABG Base Excess -3.0 L (-2-2) mmol/L FiO2 21 Sodium (137-145) mmol/L Potassium (3.4-5.1) mmol/L Chloride (98-107) mmol/L Carbon Dioxide (22-32) mmol/L BUN (7-17) mg/dL Creatinine (0.52-1.04) mg/dL Estimated GFR (>60) mL/min BUN/Creatinine Ratio (6-22) Glucose (70-100) mg/dL Calcium (8.4-10.2) mg/dL Ferritin (6-137) ng/mL Total Bilirubin (0.2-1.3) mg/dL AST (14-36) IU/L ALT (<35) IU/L Alkaline Phosphatase (38-126) U/L Lactate Dehydrogenase (313-618) U/L Total Creatine Kinase (30-135) U/L CK-MB (CK-2) (<2.37) ng/mL CK-MB (CK-2) Rel Index (1.5-5.0) % Troponin I (0.01-0.034) ng/mL C-Reactive Protein (<1.0) mg/dL NT-Pro-B Natriuret Pep (<125) pg/mL Total Protein (6.3-8.2) g/dL Albumin (3.5-5.0) g/dL Globulin (1.7-4.1) g/dL Albumin/Globulin Ratio (1.0-2.8) Procalcitonin 0.19 (<0.5) ng/mL 05/10/21 05/10/21 Range/Units 20:55 20:55 WBC 3.8 L (4.5-11.0) X10^3/uL RBC 4.09 (4.0-5.2) X10^6/uL Hgb 12.1 (12.0-16.0) g/dL Hct 35.7 L (36-46) % MCV 87.3 (80-100) fL MCH 29.5 (26-34) PG MCHC 33.8 (30-36) % RDW 13.1 (11.6-14.8) % Plt Count 127 L (150-400) X10^3/uL Neut % (Auto) 79.9 H (50-75) % Lymph % (Auto) 16.5 L (25-40) % [place] % (Auto) 3.5 (3-14) % Eos % (Auto) 0.0 L (2-4) % Baso % (Auto) 0.1 (0-2) % Neut # (Auto) 3100 (3360-6417) /uL Lymph # (Auto) 600 L (4852-5577) /uL [place] # (Auto) 100 (0-900) /uL Eos # (Auto) 0 (0-450) /uL Baso # (Auto) 0 (0-100) /uL D-Dimer (<230) ng/mL ABG pH (7.35-7.45) ABG pCO2 (35-45) mmHg ABG pO2 (80-100) mmHg ABG HCO3 (22-26) mmol/L ABG Total CO2 (21-31) mmol/L ABG O2 Saturation (95-100) % ABG Base Excess (-2-2) mmol/L FiO2 Sodium 137 (137-145) mmol/L Potassium 3.3 L (3.4-5.1) mmol/L Chloride 102 (98-107) mmol/L Carbon Dioxide 26 (22-32) mmol/L BUN 4 L (7-17) mg/dL Creatinine 0.66 (0.52-1.04) mg/dL Estimated GFR > 60.0 (>60) mL/min BUN/Creatinine Ratio 6.1 (6-22) Glucose 103 H (70-100) mg/dL Calcium 8.5 (8.4-10.2) mg/dL Ferritin 110 (6-137) ng/mL Total Bilirubin 0.4 (0.2-1.3) mg/dL AST 55 H (14-36) IU/L ALT 31 (<35) IU/L Alkaline Phosphatase 56 (38-126) U/L Lactate Dehydrogenase 973 H D (313-618) U/L Total Creatine Kinase 392 H (30-135) U/L CK-MB (CK-2) 2.37 (<2.37) ng/mL CK-MB (CK-2) Rel Index 0.6 L (1.5-5.0) % Troponin I 0.026 (0.01-0.034) ng/mL C-Reactive Protein 7.2 H (<1.0) mg/dL NT-Pro-B Natriuret Pep 527 H (<125) pg/mL Total Protein 6.6 (6.3-8.2) g/dL Albumin 3.9 (3.5-5.0) g/dL Globulin 2.7 (1.7-4.1) g/dL Albumin/Globulin Ratio 1.4 (1.0-2.8) Procalcitonin (<0.5) ng/mL Imaging Data Chest x-ray: Radiologist's Impression: Chart Viewer Diagnostics DATE TYPE STATUS REF RANGE/AUTHOR Hx 05/10/21 19:36 Julius Vergara 05/08/21 22:44 Denny Carter 05/08/21 13:43 Julius Vergara 05/08/21 12:39 RadhaCleopatra 01/13/21 13:33 Quinton,Scott 35, F0 1985 ADM IN, ICU 231 -1 162.56cm 58.5kg BMI: 22.1kg/m? Search Chart No Data to Display ONSET 04/29/11 05/10/21 23:58 Autumn Bean L 35 F [address] [id number] ReportSigned Patient: Autumn Bean LMR#: [id number]: [id number]:[id number]/Sex: 35 / FDate of Service: 05/10/21Loc: EDAccession Number: [id number] Procedure: XR chest 1V Ordering Provider: Maik Sr D.O. PROCEDURE: XR CHEST 1V INDICATIONS: persistent SOB, COVID+ TECHNIQUE: One view of the chest was acquired. COMPARISON: [facility], , XR CHEST 1V, 05/08/2021, 22:45. FINDINGS: Surgical changes and devices: None. Lungs and pleura: Extensive airspace opacities are again seen in bilateral mid to lower lung puga slightly worsened since previous studies suggestive of worsening bilateral pulmonary infiltrates secondary to COVID-19 infection. No pleural effusions or pneumothorax. Mediastinum: Mediastinal contours appear normal. Heart size is normal. Bones and chest wall: No suspicious bony lesions. Overlying soft tissues appear unremarkable. IMPRESSION: Finding is suggestive of worsening bilateral pulmonary infiltrates secondary to COVID-19 infection. No pleural effusion or pneumothorax. Dictated by: Julius Vergara M.D. on 05/10/2021 at 19:53 Approved by: Julius Vergara M.D. on 05/10/2021 at 19:54 [facility] Narrative Medical decision making narrative: Patient with known COVID and worsening symptoms has profound hypoxemia and increased work of breathing with minimal exertion. ABG notes a PO2 below 60 on room air. Traditional labs used to trend severity of COVID are also moving in the wrong direction. Patient will require hospitalization for stabilization and potential further intervention. We did have a 3 way conversation between myself, hospitalist and assistant store director regarding placement of patient within our facility and treatment plan. We are all in agreement Discharge Plan Departure Patient Disposition: Admitted As Inpatient Clinical Impression: COVID-19, Acute hypoxemic respiratory failure Admit Date/Time: 05/10/21 21:57 Admit Provider: Jennifer Mejia
[2021-05-10 21:07] LABS: Fractionated Inspired Oxygen 21; HCO3 ABG 21 mmol/L (22-26); Oxygen Saturation ABG 92 % (95-100); PCO2 ABG 28.8 mmHg (35-45); PO2 ABG 58 mmHg (80-100); TCO2 ABG 22 mmol/L (21-31); pH ABG 7.47 (7.35-7.45)
[2021-05-10 21:11] LABS: Add Manual Diff / Slide Review NO; Basophils Absolute Auto 0 /uL (0-100); Basophils Percent Auto 0.1 % (0-2); Eosinophils Absolute Auto 0 /uL (0-450); Hematocrit 35.7 % (36-46); Hemoglobin 12.1 g/dL (12.0-16.0); Lymphocytes Absolute Auto 600 /uL (1100-4500); Lymphocytes Percent Auto 16.5 % (25-40); Mean Corpuscular HGB Conc 33.8 % (30-36); Mean Corpuscular Hemoglobin 29.5 PG (26-34); Mean Corpuscular Volume 87.3 fL (80-100); Monocytes Absolute Auto 100 /uL (0-900); Monocytes Percent Auto 3.5 % (3-14); Neutrophils Absolute Auto 3100 /uL (1500-7000); Neutrophils Percent Auto 79.9 % (50-75); Platelet Count 127 X10^3/uL (150-400); Red Blood Cell Count 4.09 X10^6/uL (4.0-5.2); Red Cell Distribution Width 13.1 % (11.6-14.8); White Blood Cell Count 3.8 X10^3/uL (4.5-11.0)
[2021-05-10 21:18] LABS: D Dimer 524 ng/mL (<230)
[2021-05-10 21:25] LABS: Alanine Aminotransferase 31 IU/L (<35); Albumin 3.9 g/dL (3.5-5.0); Albumin Globulin Ratio 1.4 (1.0-2.8); Alkaline Phosphatase 56 U/L (38-126); Aspartate Aminotransferase 55 IU/L (14-36); BUN Creatinine Ratio 6.1 (6-22); Bilirubin Total 0.4 mg/dL (0.2-1.3); Blood Urea Nitrogen 4 mg/dL (7-17); C-Reactive Protein Quant 7.2 mg/dL (<1.0); Calcium 8.5 mg/dL (8.4-10.2); Carbon Dioxide 26 mmol/L (22-32); Chloride 102 mmol/L (98-107); Creatine Kinase 392 U/L (30-135); Estimated Glomerular Filt Rate > 60.0 mL/min (>60); Globulin 2.7 g/dL (1.7-4.1); Glucose 103 mg/dL (70-100); HEMOLYSIS < 15 (0-50); Lactate Dehydrogenase 973 U/L (313-618); Potassium 3.3 mmol/L (3.4-5.1); Sodium 137 mmol/L (137-145); Total Protein 6.6 g/dL (6.3-8.2)
[2021-05-10 21:34] LABS: NT-proBNP (BNP-Adult 18+) 527 pg/mL (<125); Troponin I 0.026 ng/mL (0.01-0.034)
[2021-05-10 21:38] LABS: CKMB % Relative Index 0.6 % (1.5-5.0); Creatine Kinase MB 2.37 ng/mL (<2.37); Procalcitonin 0.19 ng/mL (<0.5)
[2021-05-10 21:57] LABS: Ferritin 110 ng/mL (6-137)
[2021-05-10] MEDS: DEXAMETHASONE 10 MG/ML VIAL 6 MG IV (22:18)
[2021-05-10] MEDS: REMDESIVIR 200 MG in SODIUM CHLORIDE 0.9% 210 ML 250 ML IV (22:18)
[2021-05-11] VITALS (7 sets, daily range): BP systolic 92–103; BP diastolic 53–68; PULSE 80–97; RESP 16–24; TEMP 36.1–37.2; O2SAT 90–95
--- NOTE | 2021-05-11 00:04 | RT ---
Assessed pt at 2358 on 05/10/21. Pt is here for COVID+ PNA. Pt is on 2 LPM NC, SpO2 94%, RR 24, BS clear/diminished t/o. Pt has no pulmonary hx. Recommending O2 therapy, proning, and will instruct pt on IS.
--- NOTE | 2021-05-11 01:30 | PM.HP.1 ---
History of Present Illness History of Present Illness Date Patient Seen: 05/11/21 Time Patient Seen: 00:15 Chief complaint: COVID SOB Narrative: Autumn Bean is a 35-year-old female with no particular medical history who is had a 10 day history of migraines that then turned into shortness of breath. She went to the walk-in clinic and approximately a week ago was diagnosed with COVID-19. Today her 6th visit to the emergency department over the past week which included an episode of SVT which self-resolved. She had an echo done and due to at that time an elevated D-dimer a CTA to rule out a pulmonary embolism. She states that she has been feeling very sweaty, she has a diminished appetite, she has had nausea with no vomiting and diarrhea. She denies constipation or dysuria. She has a pulse oximeter at home and apparently when she was showering this morning her pulse ox was in the 70s. 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 She did indicate to the emergency department several visits ago that she would be interested in taking the vaccine and indicated that again to me today. She still feels poorly and the emergency department provider felt that she should be admitted because her inflammatory markers are increasing and her D-dimer keeps moving in direction of confirming some sort of clot burden. During her prior visits to the emergency department she was not provided with oral dexamethasone or monoclonal antibodies. Today she is tachypneic, tachycardic and short of breath. Chest x-ray done today in the emergency department indicated ?Finding is suggestive of worsening bilateral pulmonary infiltrates secondary to COVID-19 infection.? No pleural effusion or pneumothorax.She is currently febrile with a temperature of a 100.3?, blood pressure 106/69, heart rate 102, respiratory rate 24 with an oxygen saturation of 94% on 2 L, she weighs 58.5 kg with a BMI,of 22.1. Her WBC is 3.8, hematocrit 35.7, platelet count 127 she has a low lymph count of 16.5, D-dimer is 524 doubled over since 2 days ago, her ABG pH is 7.47 pCO2 is 28 PO2 is 58 bicarb 21 ABG O2 sat was 92% with a base excess of 3, sodium 137 potassium 3.3, glucose 103, AST 55, lactate dehydrogenase is 972, total CK is 392, C-reactive protein is 7.2, proBNP is 527, she was COVID-19 positive as of May 05. Patient History Medical History Anxiety and depression Back pain Bruxism (teeth grinding) Dysmenorrhea Dyspareunia in female Family history of endometriosis History of migraine with aura Menometrorrhagia Pelvic pain in female Premenstrual dysphoric syndrome Restless legs Weight gain due to medication Surgical History Anesthesia History of tonsillectomy (~1994) Family & Social History Family History Father Diabetes mellitus Aortic stenosis History of heart disease Hypertension Mental health problem Depression Anxiety Mother Anemia Hypoglycemic syndrome Grandfather History of heart disease Hyperlipidemia Grandmother Hyperlipidemia Mental health problem Anxiety Grandfather Diabetes mellitus Mental health problem Anxiety Depression Social History: household members family Prior Living Arrangements House Safety & Behavioral: Feels Safe in Current Yes Environment Been Physically Hurt or No Threatened By a Person Suicidal Ideation Description None Suicide Plan Description No Plan Tobacco & Substance use: Smoking Status Never smoker alcohol intake frequency 0-2 drinks per day Substance Use Type does not use Meds Home Medications and Allergies Home Medications Medication Instructions Recorded Confirmed Type methocarbamol 500 mg tablet See Rx Instructions PO Q6-8H PRN 05/05/21 05/08/21 Rx #20 tab ondansetron HCl 4 mg tablet 4 mg PO Q8H PRN #30 tab 05/08/21 Rx (Zofran) ondansetron 4 mg disintegrating 4 mg PO Q8H PRN #10 tab 05/10/21 Rx tablet Allergies Allergy/AdvReac Type Severity Reaction Status Date / Time No Known Drug Allergies Allergy Verified 05/08/21 22:40 Review of Systems Review of Systems ROS: Yes All systems reviewed with the patient and are negative except as otherwise documented Exam Vital Signs (past 8 hours): - 05/10/21 19:36 05/10/21 21:16 05/10/21 21:22 Temperature 99.0 F Pulse Rate 108 H 103 H 101 H Respiratory Rate 24 24 Blood Pressure 101/65 117/66 Pulse Oximetry 91 95 95 05/10/21 21:30 05/10/21 22:00 05/10/21 22:30 Temperature Pulse Rate 97 H 100 H 104 H Respiratory Rate 24 25 H 33 H Blood Pressure 103/63 109/65 Pulse Oximetry 93 92 96 05/10/21 22:35 05/10/21 22:45 05/10/21 23:58 Temperature 100.3 F H Pulse Rate 103 H 102 H Respiratory Rate 20 24 Blood Pressure 106/69 Pulse Oximetry 94 98 94 Oxygen Delivery Method Nasal Cannula Oxygen Flow Rate 2 Narrative Exam Narrative: Gen: Alert, oriented, well-developed 35y.o. female, tearful HEENT: normocephalic, atraumatic, conjunctiva clear, sclera non-icteric, oral mucosa pink and moist Neck: supple, full ROM, no JVD, trachea is midline Resp: Lungs CTA, non-labored breathing CV: RRR, no murmur or rubs Abd: soft, non-tender, normoactive BTs Skin: no lesions or rashes, dry and intact Neuro: Alert and oriented X 4 w/no focal deficits. Speech clear and coherent. Extremities: moves all 4 extremities, is ambulatory, negative Milla?s sign Psyche: Anxious but cooperative Objective Labs Result Diagrams: 05/10/21 20:55 05/10/21 20:55 Labs: Laboratory Results - last 24 hr 05/10/21 05/10/21 05/10/21 20:42 20:55 20:55 WBC RBC Hgb Hct MCV MCH MCHC RDW Plt Count Neut % (Auto) Lymph % (Auto) Metcalfe % (Auto) Eos % (Auto) Baso % (Auto) Neut # (Auto) Lymph # (Auto) Metcalfe # (Auto) Eos # (Auto) Baso # (Auto) D-Dimer 524 H ABG pH 7.47 H ABG pCO2 28.8 L ABG pO2 58 L ABG HCO3 21 L ABG Total CO2 22 ABG O2 Saturation 92 L ABG Base Excess -3.0 L FiO2 21 Sodium Potassium Chloride Carbon Dioxide BUN Creatinine Estimated GFR BUN/Creatinine Ratio Glucose Calcium Ferritin Total Bilirubin AST ALT Alkaline Phosphatase Lactate Dehydrogenase Total Creatine Kinase CK-MB (CK-2) CK-MB (CK-2) Rel Index Troponin I C-Reactive Protein NT-Pro-B Natriuret Pep Total Protein Albumin Globulin Albumin/Globulin Ratio Procalcitonin 0.19 Nasal Screen MRSA (PCR) 05/10/21 05/10/21 05/10/21 20:55 20:55 23:40 WBC 3.8 L RBC 4.09 Hgb 12.1 Hct 35.7 L MCV 87.3 MCH 29.5 MCHC 33.8 RDW 13.1 Plt Count 127 L Neut % (Auto) 79.9 H Lymph % (Auto) 16.5 L Metcalfe % (Auto) 3.5 Eos % (Auto) 0.0 L Baso % (Auto) 0.1 Neut # (Auto) 3100 Lymph # (Auto) 600 L Metcalfe # (Auto) 100 Eos # (Auto) 0 Baso # (Auto) 0 D-Dimer ABG pH ABG pCO2 ABG pO2 ABG HCO3 ABG Total CO2 ABG O2 Saturation ABG Base Excess FiO2 Sodium 137 Potassium 3.3 L Chloride 102 Carbon Dioxide 26 BUN 4 L Creatinine 0.66 Estimated GFR > 60.0 BUN/Creatinine Ratio 6.1 Glucose 103 H Calcium 8.5 Ferritin 110 Total Bilirubin 0.4 AST 55 H ALT 31 Alkaline Phosphatase 56 Lactate Dehydrogenase 973 H D Total Creatine Kinase 392 H CK-MB (CK-2) 2.37 CK-MB (CK-2) Rel Index 0.6 L Troponin I 0.026 C-Reactive Protein 7.2 H NT-Pro-B Natriuret Pep 527 H Total Protein 6.6 Albumin 3.9 Globulin 2.7 Albumin/Globulin Ratio 1.4 Procalcitonin Nasal Screen MRSA (PCR) Negative for mrsa Assessment & Plan Assessment & Plan narrative: 1. COVID-19 Pneumonia, acute, present on admission Patient was administered loading dose of IV Remdesevir 200 mg and dexamethasone 6 mg in the ED Continue IV Remdesevir 100 mg and dexamethasone 6 mg the following day Patient is initiated on Baricitinib 4 mg po daily due to high risk of accelerating oxygen support requirements. Supplemental O2 by nasal cannula 2 liters Patient has not vaccinated. She is interested as to when she is eligible to be vaccinated. 2. Hypokalemia with a potassium of 3.3, present on admission Patient is given 40 mEq oral potassium x1 at the time her labs are drawn. VTE Prophylaxis: Wells risk score 7.5 Enoxaparin 40 mg subQ BID Patient is admitted to the inpatient service due to the severity of disease, risks of further disease progression and this stay is expected to exceed 2 midnights. Patient appears to be at high risk for converting over to ICU level of care and is placed in an ICU room in the case she requires higher oxygenation interventions FEN: Saline lock, diet: General diet, labs: CBC, C/BMP, liver enzymes, Mag, PT/INR Consultants None I contacted [facility] initially, to determine whether she needed to be put into ICU status now or later Dispo: Unknown at this time Code status: Full code as discussed with the patient who identifies Her her surrogate and POA. [X] I have utilized all available immediate resources to obtain, update, or review of the patient's current medications COVID-19 COVID-19 status: Positive Result date/Date tested (Pos, Neg/Pending): 05/05/21 Time Spent With Patient Critical Care time: I spent a total of [] minutes of critical care time on this patient's care today; this time is exclusive of procedural time. Scores Wells' Criteria for PE Clinical signs and symptoms of DVT: Yes PE is #1 Dx or equally likely: Yes Heart rate > 100: Yes Immobilization at least 3 days or surg in previous 4 weeks: No History of PE or DVT: No Hemoptysis: No Malignancy w/Treatment within 6 months or palliative: No Wells' PE Score total: 7.5 Quality VTE Deep Vein Thrombosis/Pulmonary Embolism Present on Admission: No MIPS - Admit I confirm the patient?s Advance Care Plan is present, Code status is documented, Surrogate decision maker is in patient?s record [If Yes, STOP here]: Yes
[2021-05-11] MEDS: ENOXAPARIN 60 MG/0.6 ML SYRINGE 40 MG SUBCUT ×2 (05:00→21:00)
[2021-05-11 05:18] LABS: Hematocrit 36.3 % (36-46); Hemoglobin 12.2 g/dL (12.0-16.0)
[2021-05-11 05:21] LABS: INR 1.3 (0.9-1.3); Prothrombin Time 14.2 SECONDS (10.1-12.7)
[2021-05-11 05:27] LABS: BUN Creatinine Ratio 9.2 (6-22); Blood Urea Nitrogen 6 mg/dL (7-17); Calcium 8.3 mg/dL (8.4-10.2); Carbon Dioxide 26 mmol/L (22-32); Chloride 102 mmol/L (98-107); Estimated Glomerular Filt Rate > 60.0 mL/min (>60); Glucose 132 mg/dL (70-100); HEMOLYSIS < 15 (0-50); Potassium 3.7 mmol/L (3.4-5.1); Sodium 137 mmol/L (137-145)
[2021-05-11 05:39] LABS: Troponin I 0.021 ng/mL (0.01-0.034)
[2021-05-11] MEDS: POTASSIUM CHLORIDE 20 MEQ TAB 40 MEQ PO (06:07)
--- NOTE | 2021-05-11 06:20 | PC.ADMIT ---
1028 [facility] Admission Note: The patient,Autumn Bean,35 y/o, was given written information regarding hospital policies, unit procedures and contact persons. Patient's smoking status: Never smoker. Vital Signs - 8 hr 05/10/21 22:30 05/10/21 22:35 05/10/21 22:45 Temperature 100.3 F H Pulse Rate 104 H 103 H Respiratory Rate 33 H 20 Blood Pressure 106/69 Pulse Oximetry 96 94 98 05/10/21 23:58 05/11/21 04:30 Temperature 98.0 F Pulse Rate 102 H 90 Respiratory Rate 24 23 Blood Pressure 97/57 L Pulse Oximetry 94 92 Patient admitted to ICU room 231 at 2235, able to ambulate from stretcher to bed, mild shortness of breath, RR 20s, SpO2 95% on RA at the time, does desat to 86% briefly, recovers quickly, has been on 2L NC throughout the night. Intermittent hacking cough. Initial temp 100.3, then afebrile by morning, SR/ST. First dose Remdesivir and Lovenox given. 40meq PO potassium given in am for K+ 3.3. Patient has mild anxiety and asks many appropriate questions, also proned most of the night.
[2021-05-11] MEDS: SODIUM CHLORIDE 0.9% FLUSH 10 ML IV ×2 (09:10→21:02)
[2021-05-11] MEDS: ACETAMINOPHEN 325 MG TABLET 650 MG PO (11:13)
[2021-05-11] MEDS: REMDESIVIR 100 MG in SODIUM CHLORIDE 0.9% 230 ML 250 ML IV (21:00)
[2021-05-11] MEDS: DEXAMETHASONE 10 MG/ML VIAL 6 MG IV (21:01)
[2021-05-11] MEDS: MELATONIN 3 MG TABLET 6 MG PO (21:07)
[2021-05-12] VITALS (9 sets, daily range): BP systolic 91–101; BP diastolic 55–68; PULSE 60–80; RESP 18–24; TEMP 36–36.7; O2SAT 87–96
--- NOTE | 2021-05-12 02:58 | PC.NURSE ---
0230 Pt awake and requesting that SCDs be removed to get OOB to the bathroom. Patient stating that she had a cold sweat. Gown and linens changed. Patient ambulated to the bathroom with 2L N/C on and had desats to 79% briefly with shortness of breath noted. Patient recovered to 90% within two to three minutes. Some nonproductive coughing noted during ambulation to bathroom, but resolved with return to bed
[2021-05-12 06:55] LABS: Hematocrit 34.8 % (36-46); Hemoglobin 11.6 g/dL (12.0-16.0)
[2021-05-12 06:58] LABS: BUN Creatinine Ratio 21.3 (6-22); Blood Urea Nitrogen 13 mg/dL (7-17); Calcium 8.7 mg/dL (8.4-10.2); Carbon Dioxide 27 mmol/L (22-32); Chloride 104 mmol/L (98-107); Estimated Glomerular Filt Rate > 60.0 mL/min (>60); Glucose 141 mg/dL (70-100); HEMOLYSIS < 15 (0-50); Potassium 4.6 mmol/L (3.4-5.1); Sodium 138 mmol/L (137-145)
[2021-05-12] MEDS: ACETAMINOPHEN 325 MG TABLET 650 MG PO (08:26)
[2021-05-12] MEDS: SODIUM CHLORIDE 0.9% FLUSH 10 ML IV ×2 (08:26→20:03)
[2021-05-12] MEDS: ENOXAPARIN 60 MG/0.6 ML SYRINGE 40 MG SUBCUT ×2 (08:27→20:00)
--- NOTE | 2021-05-12 16:56 | CM.DANOTE ---
DCP/Brief Assessment: Reviewed chart. Patient is a 35yr old female admitted to [facility] with COVID. PCP listed is Dr. Cesar. Primary payor is 1[facility]. Per provider in AM rounds patient currently with no d/c planning needs. It is anticipated that patient will d/c home once medically stable. Spoke with RN whom reports patient ambulating in room I. P: Anticipate home without d/c planning needs once stable. [facility] Discharge Planning/Care Management CM Discharge Assessment Start: 05/12/21 16:54 Freq: Status: Active Protocol: Document 05/12/21 16:54 KJS (Rec: 05/12/21 16:56 KJS [id number]) Discharge Planning Assessment Assigned [employer] Inspector SVETLANA Costello Contact Information None listed Advance Directives? No Advance Directives on File No History Provided By Medical Record Prior Living Arrangements House Household Members family Type of transporation used prior to Drives own vehicle admit Independent with ADL's Yes Is patient alert and oriented? Yes Caregiver for Another Yes: Family at home Barriers to Discharge No Discharge Plan Home Transportation Arrangement Family to provide transport. Referrals Initiated Other Additional Comment CM team following for d/c planning needs. At this time no needs anticiapted. Comment COVID+ Review Status In Process Next Review Type Continued Stay Review
--- NOTE | 2021-05-12 18:29 | PC.NURSE ---
Day Shift Note Proning most of shift, 2L NC with SpO2 93-96%. Decreases to low 90s when sitting up and to 80-82% with activity - requiring brief increases to 3L to recover. Coughing and deep breathing. Walking into bathroom with minimal shortness of breath, able to shower today. Denies pain. Very motivated and proactive with care. Call light within reach, using appropriately to make needs known.
--- NOTE | 2021-05-12 18:51 | PM.PN.1 ---
Subjective Subjective Interval history: The patient reports that proning has helped her SOB so far. She is worried that she won't improve and is highly concerned about this. She continues to speak with her and children regularly through [employer] on her phone and she states this is helping her mood. She denies issues with eating drinking or urinary/bowel issues. Exam Vital Signs (past 8 hours): - 05/12/21 12:31 05/12/21 17:15 Temperature 97.0 F L 97.2 F L Pulse Rate 60 72 Respiratory Rate 20 19 Blood Pressure 91/55 L 101/63 Pulse Oximetry 95 93 Oxygen Delivery Method Nasal Cannula Oxygen Flow Rate 2 Const Other: The patient is laying prone in bed upon my entering the room, in no apparent acute distress. Eyes Other: No scleral icterus appreciated. Resp Other: Slight inspiratory wet crackles appreciated to bilateral lung bases. Otherwise, good air exchange. Cardio Other: Regular rate and rhythm. S1 and S2 heart sounds auscultated with no extra heart sounds or murmurs appreciated. No peripheral edema noted. GI Other: Soft, non-distended, non-tender. Bowel sounds present. Extrem Other: Palpable dorsalis pedis and radial pulses bilaterally. Objective Labs Result Diagrams: 05/12/21 04:08 05/12/21 04:08 Labs: Laboratory Results - last 24 hr 05/12/21 05/12/21 04:08 04:08 Hgb 11.6 L Hct 34.8 L Sodium 138 Potassium 4.6 Chloride 104 Carbon Dioxide 27 BUN 13 Creatinine 0.61 Estimated GFR > 60.0 BUN/Creatinine Ratio 21.3 Glucose 141 H Calcium 8.7 PFSH Medical History Anxiety and depression Back pain Bruxism (teeth grinding) Dysmenorrhea Dyspareunia in female Family history of endometriosis History of migraine with aura Menometrorrhagia Pelvic pain in female Premenstrual dysphoric syndrome Restless legs Weight gain due to medication Surgical History Anesthesia History of tonsillectomy (~1994) Family History Father Diabetes mellitus Aortic stenosis History of heart disease Hypertension Mental health problem Depression Anxiety Mother Anemia Hypoglycemic syndrome Grandfather History of heart disease Hyperlipidemia Grandmother Hyperlipidemia Mental health problem Anxiety Grandfather Diabetes mellitus Mental health problem Anxiety Depression Social History household members: family Smoking Status: Never smoker Assessment & Plan Assessment & Plan narrative: Assessment: 1. Acute hypoxic respiratory failure secondary to COVID-19 pneumonia 2. Hx of migraine with aura 3. Hx of anxiety and depression Plan: 1. Supplemental oxygen needs are slightly improving daily. IV dexamethasone on-board, along with remdesivir and baricitinib. Oxygen saturation still declines with ambulation. 2. Patient denies active migraines inpatient so far. 3. Patient denies anxiety/depression here, although she is understandably still processing her COVID-19 diagnosis. VTE prophylaxis: Lovenox 40 mg bid, given positive COVID-19 status Disposition: Home, once clinically stable Time Spent With Patient Critical Care time: I spent a total of [] minutes of critical care time on this patient's care today; this time is exclusive of procedural time. Quality VTE Deep Vein Thrombosis/Pulmonary Embolism Present on Admission: No
[2021-05-12] MEDS: MELATONIN 3 MG TABLET 6 MG PO (20:00)
[2021-05-12] MEDS: DEXAMETHASONE 10 MG/ML VIAL 6 MG IV (20:00)
[2021-05-12] MEDS: REMDESIVIR 100 MG in SODIUM CHLORIDE 0.9% 230 ML 250 ML IV (20:02)
[2021-05-13] VITALS (25 sets, daily range): BP systolic 94–102; BP diastolic 60–69; PULSE 51–78; RESP 18–22; TEMP 36.1–36.5; O2SAT 87–98
[2021-05-13 05:24] LABS: Hematocrit 36.4 % (36-46); Hemoglobin 12.1 g/dL (12.0-16.0)
[2021-05-13 05:33] LABS: BUN Creatinine Ratio 26.3 (6-22); Blood Urea Nitrogen 15 mg/dL (7-17); Calcium 8.5 mg/dL (8.4-10.2); Carbon Dioxide 29 mmol/L (22-32); Chloride 103 mmol/L (98-107); Estimated Glomerular Filt Rate > 60.0 mL/min (>60); Glucose 136 mg/dL (70-100); HEMOLYSIS < 15 (0-50); Potassium 4.7 mmol/L (3.4-5.1); Sodium 138 mmol/L (137-145)
[2021-05-13] MEDS: ENOXAPARIN 60 MG/0.6 ML SYRINGE 40 MG SUBCUT (08:45)
[2021-05-13] MEDS: SODIUM CHLORIDE 0.9% FLUSH 10 ML IV ×2 (09:10→20:15)
[2021-05-13] MEDS: ACETAMINOPHEN 325 MG TABLET 650 MG PO (10:16)
--- NOTE | 2021-05-13 15:30 | P.PN_ITS ---
Subjective Subjective Interval history: Patient reports proning for the greater part of most days. She states that helps her SOB greatly. She became tearful when discussing her and children at home, whom she misses. Exam Vital Signs (past 8 hours): - 05/15/21 08:00 05/15/21 11:00 05/15/21 12:00 Temperature 96.4 F L 97.2 F L Pulse Rate 58 L 78 Respiratory Rate 17 20 Blood Pressure 94/62 97/68 Pulse Oximetry 93 95 88 L Oxygen Delivery Method Nasal Cannula Oxygen Flow Rate 2 Const Other: Const Other: The patient is laying prone in bed upon my entering the room, in no apparent acute distress. Eyes Other: No scleral icterus appreciated. Resp Other: Slight inspiratory wet crackles appreciated to bilateral lung bases. Otherwise, good air exchange. Cardio Other: Regular rate and rhythm. S1 and? S2 heart sounds auscultated with no extra heart sounds or murmurs appreciated. No peripheral edema noted. GI Other: Soft, non-distended, non-tender. Bowel sounds present. Extrem Other: Palpable dorsalis pedis and radial pulses bilaterally. Objective Labs Result Diagrams: 05/13/21 05:00 05/13/21 05:00 [facility] Medical History Anxiety and depression Back pain Bruxism (teeth grinding) Dysmenorrhea Dyspareunia in female Family history of endometriosis History of migraine with aura Menometrorrhagia Pelvic pain in female Premenstrual dysphoric syndrome Restless legs Weight gain due to medication Surgical History Anesthesia History of tonsillectomy (~1994) Family History Father Diabetes mellitus Aortic stenosis History of heart disease Hypertension Mental health problem Depression Anxiety Mother Anemia Hypoglycemic syndrome Grandfather History of heart disease Hyperlipidemia Grandmother Hyperlipidemia Mental health problem Anxiety Grandfather Diabetes mellitus Mental health problem Anxiety Depression Social History household members: family Smoking Status: Never smoker Assessment & Plan Assessment & Plan narrative: Assessment: 1. Acute hypoxic respiratory failure secondary to COVID-19 pneumonia 2. Hx of migraine with aura 3. Hx of anxiety and depression Plan: 1. Supplemental oxygen needs are slightly improving daily. IV dexamethasone on- board, along with remdesivir and baricitinib. Oxygen saturation still declines with ambulation. 2. Patient denies active migraines inpatient so far. 3. Patient denies anxiety/depression here, although she is understandably still processing her COVID-19 diagnosis. VTE prophylaxis: Lovenox 30 mg bid, given positive COVID-19 status Disposition: Home, once clinically stable Time Spent With Patient Critical Care time: I spent a total of [] minutes of critical care time on this patient's care today; this time is exclusive of procedural time. Quality VTE Deep Vein Thrombosis/Pulmonary Embolism Present on Admission: No
[2021-05-13] MEDS: DEXAMETHASONE 10 MG/ML VIAL 6 MG IV (20:14)
[2021-05-13] MEDS: ENOXAPARIN 60 MG/0.6 ML SYRINGE 30 MG SUBCUT (20:15)
[2021-05-13] MEDS: MELATONIN 3 MG TABLET 6 MG PO (20:15)
[2021-05-13] MEDS: REMDESIVIR 100 MG in SODIUM CHLORIDE 0.9% 230 ML 175 ML IV (20:17)
[2021-05-14] VITALS (51 sets, daily range): BP systolic 88–104; BP diastolic 55–65; PULSE 47–106; RESP 12–22; TEMP 35.6–36.3; O2SAT 83–99
[2021-05-14] MEDS: ENOXAPARIN 60 MG/0.6 ML SYRINGE 30 MG SUBCUT ×2 (09:58→20:57)
[2021-05-14] MEDS: SODIUM CHLORIDE 0.9% FLUSH 10 ML IV ×2 (09:58→20:59)
--- NOTE | 2021-05-14 15:29 | PC.NURSE ---
Dayshift note: Pt proning most of shift. 3L NC with SpO2 93-95%. Desaturates to 80-83% with activity.Coughing and deep breathing, using IS.Walks into bathroom independently with minimal SOB, took shower.Bed low and locked, call light within reach, able to make needs known, will continue to monitor.
--- NOTE | 2021-05-14 15:33 | PM.PN.1 ---
Subjective Subjective Interval history: The patient continues to prone daily, for the better part of the day. She denies any issues with PO intake, urinary/bowel movements, or any other new complaints. She endorses having a history of asymptomatic low BP's, stating that she runs on the low side. She reports wanting to go home to see her family but does not feel quite ready for it physically. Exam Vital Signs (past 8 hours): - 05/15/21 08:00 05/15/21 11:00 05/15/21 12:00 Temperature 96.4 F L 97.2 F L Pulse Rate 58 L 78 Respiratory Rate 17 20 Blood Pressure 94/62 97/68 Pulse Oximetry 93 95 88 L Oxygen Delivery Method Nasal Cannula Oxygen Flow Rate 2 Const Other: Const Other: The patient is sitting up in bed upon my entering the room, in no apparent acute distress. Eyes Other: No scleral icterus appreciated. Resp Other: Slight inspiratory wet crackles appreciated to bilateral lung bases. Otherwise, good air exchange. Cardio Other: Regular rate and rhythm. S1 and? S2 heart sounds auscultated with no extra heart sounds or murmurs appreciated. No peripheral edema noted. GI Other: Soft, non-distended, non-tender. Bowel sounds present. Extrem Other: Palpable dorsalis pedis and radial pulses bilaterally. Objective Labs Result Diagrams: 05/13/21 05:00 05/13/21 05:00 [facility] Medical History Anxiety and depression Back pain Bruxism (teeth grinding) Dysmenorrhea Dyspareunia in female Family history of endometriosis History of migraine with aura Menometrorrhagia Pelvic pain in female Premenstrual dysphoric syndrome Restless legs Weight gain due to medication Surgical History Anesthesia History of tonsillectomy (~1994) Family History Father Diabetes mellitus Aortic stenosis History of heart disease Hypertension Mental health problem Depression Anxiety Mother Anemia Hypoglycemic syndrome Grandfather History of heart disease Hyperlipidemia Grandmother Hyperlipidemia Mental health problem Anxiety Grandfather Diabetes mellitus Mental health problem Anxiety Depression Social History household members: family Smoking Status: Never smoker Assessment & Plan Assessment & Plan narrative: Assessment: 1. Acute hypoxic respiratory failure secondary to COVID-19 pneumonia 2. Hx of migraine with aura 3. Hx of anxiety and depression Plan: 1. Supplemental oxygen needs are slightly improving daily. IV dexamethasone on-board, along with remdesivir and baricitinib. Oxygen saturation declines with ambulation but patient reports it's becoming more tolerable, with a quicker recovery after rest. 2. Patient denies active migraines inpatient so far. 3. Patient denies anxiety/depression here, although she is understandably still processing her COVID-19 diagnosis. VTE prophylaxis: Lovenox 30 mg bid, given positive COVID-19 status Disposition: Home, once clinically stable Time Spent With Patient Critical Care time: I spent a total of [] minutes of critical care time on this patient's care today; this time is exclusive of procedural time. Quality VTE Deep Vein Thrombosis/Pulmonary Embolism Present on Admission: No
[2021-05-14] MEDS: DEXAMETHASONE 10 MG/ML VIAL 6 MG IV (20:57)
[2021-05-14] MEDS: REMDESIVIR 100 MG in SODIUM CHLORIDE 0.9% 230 ML 175 ML IV (20:58)
[2021-05-14] MEDS: MELATONIN 3 MG TABLET 6 MG PO (20:58)
[2021-05-15] VITALS (38 sets, daily range): BP systolic 94–97; BP diastolic 55–68; PULSE 46–87; RESP 17–20; TEMP 35.8–36.2; O2SAT 88–98
--- NOTE | 2021-05-15 06:25 | PC.NURSE ---
Shift Note-Patient ambulates in room with mild shortness of breath, improving from previous days, SpO2 stays > 86%, she recovers quickly to >92%. NC decreased from 3L to 2L, been proning throughout the night.
[2021-05-15] MEDS: ENOXAPARIN 30 MG/0.3 ML SYRINGE SUBCUT (10:49)
[2021-05-15] MEDS: SODIUM CHLORIDE 0.9% FLUSH 10 ML IV (10:51)
--- NOTE | 2021-05-15 15:47 | P.PN_ITS ---
Subjective Subjective Interval history: Patient reports feeling much better today. She states she still somewhat desaturates during ambulation but that she's able to walk more than before. She reports wanting to go home today, and is OK with supplemental oxygen at home. Exam Vital Signs (past 8 hours): - 05/15/21 08:00 05/15/21 11:00 05/15/21 12:00 Temperature 96.4 F L 97.2 F L Pulse Rate 58 L 78 Respiratory Rate 17 20 Blood Pressure 94/62 97/68 Pulse Oximetry 93 95 88 L Oxygen Delivery Method Nasal Cannula Oxygen Flow Rate 2 Narrative Exam Narrative: Const Other: The patient is sitting up in bed upon my entering the room, in no apparent acute distress. Eyes Other: No scleral icterus appreciated. Resp Other: Slight inspiratory wet crackles appreciated to bilateral lung bases. Otherwise, good air exchange. Cardio Other: Regular rate and rhythm. S1 and? S2 heart sounds auscultated with no extra heart sounds or murmurs appreciated. No peripheral edema noted. GI Other: Soft, non-distended, non-tender. Bowel sounds present. Extrem Other: Palpable dorsalis pedis and radial pulses bilaterally. Objective Labs Result Diagrams: 05/13/21 05:00 05/13/21 05:00 [facility] Medical History Anxiety and depression Back pain Bruxism (teeth grinding) Dysmenorrhea Dyspareunia in female Family history of endometriosis History of migraine with aura Menometrorrhagia Pelvic pain in female Premenstrual dysphoric syndrome Restless legs Weight gain due to medication Surgical History Anesthesia History of tonsillectomy (~1994) Family History Father Diabetes mellitus Aortic stenosis History of heart disease Hypertension Mental health problem Depression Anxiety Mother Anemia Hypoglycemic syndrome Grandfather History of heart disease Hyperlipidemia Grandmother Hyperlipidemia Mental health problem Anxiety Grandfather Diabetes mellitus Mental health problem Anxiety Depression Social History household members: family Smoking Status: Never smoker Assessment & Plan Assessment & Plan narrative: Assessment: 1. Acute hypoxic respiratory failure secondary to COVID-19 pneumonia 2. Hx of migraine with aura 3. Hx of anxiety and depression Plan: 1. Patient will be discharged home after RT home oxygen evaluation revealed she desaturates to mid-80's with ambulation and improves with 4-5 liters supplemental oxygen. Will also discharge with PO dexamethasone 5 mg once daily for 5 more days to complete a 10-day course. 2. Patient denies active migraines so far. 3. Patient denies anxiety/depression here, although she is understandably still processing her COVID-19 diagnosis. VTE prophylaxis: Lovenox 30 mg bid, given positive COVID-19 status Disposition: Home with home supplemental oxygen Time Spent With Patient Critical Care time: I spent a total of [] minutes of critical care time on this patient's care today; this time is exclusive of procedural time. Quality VTE Deep Vein Thrombosis/Pulmonary Embolism Present on Admission: No
--- NOTE | 2021-05-15 15:55 | P.DS_ITS ---
History of Present Illness History of Present Illness Chief complaint: COVID SOB Narrative: 35yo female that is otherwise healthy that presented with acute hypoxic respiratory failure secondary to severe COVID-19 pneumonia. She was treated inpatient with supplemental oxygen, IV dexamethasone and IV remdesivir. By the time of discharge, she improved to 2-3 liters of supplemental oxygen at rest and 4-5 liters of supplemental oxygen with ambulation, based on RT eval. She was discharged on home oxygen and PO dexamethasone 5 mg once daily to complete a 10- day course. Discharge Providers Provider Date of admission: 05/10/21 21:57 Discharge Date: 05/15/21 Primary care physician: Ivan Cesar DO Consults: 05/10/21 22:11 Consult to Discharge Planning Routine Comment: 05/10/21 22:15 Consult to Respiratory Therapy Evaluate & Treat Comment: COVID 19 in an unvaccinated person Physician Instructions: Evaluate and treat 05/10/21 23:53 Consult to Pastoral Services Routine Comment: COVID-19, anxiety about disease Discharge provider: Mayi Saenz MD Summary Hospital Course Discharge Diagnosis: 1. Acute hypoxic respiratory failure secondary to COVID-19 pneumonia 2. Hx of migraine with aura 3. Hx of anxiety and depression Hospital Course: 35yo female that is otherwise healthy that presented with acute hypoxic respiratory failure secondary to severe COVID-19 pneumonia. She was treated inpatient with supplemental oxygen, IV dexamethasone and IV remdesivir. By the time of discharge, she improved to 2-3 liters of supplemental oxygen at rest and 4-5 liters of supplemental oxygen with ambulation, based on RT eval. She was discharged on home oxygen and PO dexamethasone 5 mg once daily to complete a 10- day course. Exam Vital Signs (past 8 hours): - 05/15/21 08:00 05/15/21 11:00 05/15/21 12:00 Temperature 96.4 F L 97.2 F L Pulse Rate 58 L 78 Respiratory Rate 17 20 Blood Pressure 94/62 97/68 Pulse Oximetry 93 95 88 L Oxygen Delivery Method Nasal Cannula Oxygen Flow Rate 2 Objective Labs Result Diagrams: 05/13/21 05:00 05/13/21 05:00 [facility] Medical History Anxiety and depression Back pain Bruxism (teeth grinding) Dysmenorrhea Dyspareunia in female Family history of endometriosis History of migraine with aura Menometrorrhagia Pelvic pain in female Premenstrual dysphoric syndrome Restless legs Weight gain due to medication Surgical History Anesthesia History of tonsillectomy (~1994) Family History Father Diabetes mellitus Aortic stenosis History of heart disease Hypertension Mental health problem Depression Anxiety Mother Anemia Hypoglycemic syndrome Grandfather History of heart disease Hyperlipidemia Grandmother Hyperlipidemia Mental health problem Anxiety Grandfather Diabetes mellitus Mental health problem Anxiety Depression Social History household members: family Smoking Status: Never smoker Discharge Assessment & Plan Assessment and Plan Assessment: 1. Acute hypoxic respiratory failure secondary to COVID-19 pneumonia 2. Hx of migraine with aura 3. Hx of anxiety and depression Plan of Treatment: 1. Patient will be discharged home. RT home oxygen evaluation revealed she desaturates to mid-80's with ambulation and improves with 4-5 liters s upplemental oxygen. Will also discharge with PO dexamethasone 5 mg once daily for 5 more days to complete a 10-day course. 2. Patient denies active migraines so far. 3. Patient denies anxiety/depression here, although she is understandably still processing her COVID-19 diagnosis. Disposition: Home with home supplemental oxygen and close PCP follow-up Discharge Plan Discharge orders & Medications Discharge Orders: Discharge (Order); Ordered 05/15/21 Ordered By: Mayi Saenz Prescriptions: New dexamethasone 6 mg tablet 6 mg PO DAILY 5 Days Qty: 5 0RF Continued methocarbamol 500 mg tablet See Rx Instructions PO Q6-8H PRN (Reason: muscle spasm) Qty: 20 0RF Rx Instructions: 1-2 tablets PO every 6-8 hours PRN; ondansetron 4 mg tablet,disintegrating 4 mg PO Q8H PRN (Reason: nausea and vomiting) Qty: 10 0RF Follow up/Referrals: Ivan Cesar DO [Primary Care Provider] - Discharge Data Primary Care Provider: Ivan Cesar Quality VTE Deep Vein Thrombosis/Pulmonary Embolism Present on Admission: No
== END 2021-05-15 17:20 | disposition home or self-care (01) | DRG 177 ==
LOC: ED 21:53 → ICU 05-11 06:06 → AC 05-11 15:11 → ICU 05-11 15:11
PROVIDERS: Admitting Provider Nurse Practitioner Family; Emergency Provider Emergency Medicine; PCP Family Medicine; Referring Provider Emergency Medicine; Visit Provider Nurse Practitioner Family
DX: U07.1 COVID-19 (principal); J12.82 Pneumonia due to coronavirus disease 2019; J96.01 Acute respiratory failure with hypoxia; E87.6 Hypokalemia; R00.0 Tachycardia, unspecified; D69.6 Thrombocytopenia, unspecified
CPT/HCPCS: 36415; 36600; 71045; 80048; 80053; 82550; 82553; 82728; 82805; 83615; 83880; 84145; 84484; 85014; 85018; 85025; 85379; 85610; 86140; 87797; 94618; 94762; 96374; 96375; 99284; J1100; J1650; J2405

== ENCOUNTER → 2021-07-13 09:10 | Outpatient (CLI) | payer OTHER, SELFPAY ==
[2021-05-10 23:00] VITALS: BMI 22.1
--- NOTE | 2021-08-05 07:27 | P.HOLT.S_ITS ---
Dampener Operator Report Referral & Results Date Patient Seen: 07/13/21 Requesting provider: Ivan Cesar Indication: SVT Duration of monitoring (days): 14 Diary information: There were 10 patient triggered events and 1 patient diary entry Patient triggered events were associated with, variably, within 45 seconds, sinus rhythm, PACs, PVCs and SVT Patient diary event was associated with SVT Data: Minimum heart rate identified was 40 beats per minute at 05:10 on 07/15/2021 Maximum sinus heart rate was 169 beats per minute at 17:41 on 07/17/2021 Maximum overall heart rate was 235 beats per minute at 19:32 on 07/25/2021 during a run of SVT Less than 1% of identified beats were ventricular or supraventricular ectopic in origin, which would classify them as rare. There was 1 run of SVT that lasted 6 minutes 38 seconds at the above rate of 235 beats per minute Impression: 14 day cardiac care unit nurse demonstrating a single episode of SVT that was 6+ minutes in duration and apparently symptomatic based on patient events. While this was a solitary event during this extended period of time the SVT was very tachycardic and symptomatic. Depending on clinical situation and other clinical symptoms suggest electrophysiology consultation
== END ==
PROVIDERS: PCP Family Medicine; Referring Provider Family Medicine; Visit Provider Family Medicine
DX: I47.1 Supraventricular tachycardia (principal)
CPT/HCPCS: 93246; 93248

== ENCOUNTER → 2022-01-29 16:51 | Outpatient (CLI) | payer OTHER, SELFPAY ==
[2021-05-10 23:00] VITALS: BMI 22.1
--- NOTE | 2022-01-29 16:55 | DI.RAD.S_ITS ---
PROCEDURE: XR CHEST 2V INDICATIONS: air hunger, first chest xray since COVID 05/17 TECHNIQUE: 2 views of the chest were acquired. COMPARISON: [facility], CR, XR CHEST 1V, 05/08/2021, 22:45. [facility], CR, XR CHEST 1V, 05/08/2021, 13:05. [facility], CR, XR CHEST 1V, 05/10/2021, 19:44. FINDINGS: Surgical changes and devices: None. Lungs and pleura: Previously seen pulmonary opacities have resolved. No acute consolidation. No pleural effusions or pneumothorax. Mediastinum: Mediastinal contours are normal. Heart size is normal. Bones and chest wall: No suspicious bony abnormalities. Soft tissues appear unremarkable. IMPRESSION: No acute cardiopulmonary abnormality. Dictated by: Vladimir Felix M.D. on 01/29/2022 at 17:34 Approved by: Vladimir Felix M.D. on 01/29/2022 at 17:35
[2022-01-29 17:46] LABS: Add Manual Diff / Slide Review NO; Basophils Absolute Auto 0 /uL (0-100); Basophils Percent Auto 0.3 % (0-2); Eosinophils Absolute Auto 200 /uL (0-450); Eosinophils Percent Auto 1.9 % (2-4); Hematocrit 38.2 % (36-46); Hemoglobin 13.4 g/dL (12.0-16.0); Lymphocytes Absolute Auto 2800 /uL (1100-4500); Lymphocytes Percent Auto 24.6 % (25-40); Mean Corpuscular HGB Conc 34.9 % (30-36); Monocytes Absolute Auto 700 /uL (0-900); Monocytes Percent Auto 5.9 % (3-14); Neutrophils Absolute Auto 7800 /uL (1500-7000); Neutrophils Percent Auto 67.3 % (50-75); Platelet Count 289 X10^3/uL (150-400); Red Blood Cell Count 4.45 X10^6/uL (4.0-5.2); Red Cell Distribution Width 13.5 % (11.6-14.8); White Blood Cell Count 11.6 X10^3/uL (4.5-11.0)
[2022-01-29 18:22] LABS: Alanine Aminotransferase 17 IU/L (<35); Albumin 4.7 g/dL (3.5-5.0); Albumin Globulin Ratio 1.6 (1.0-2.8); Alkaline Phosphatase 78 U/L (38-126); Aspartate Aminotransferase 23 IU/L (14-36); BUN Creatinine Ratio 22.1 (6-22); Bilirubin Total 0.3 mg/dL (0.2-1.3); Blood Urea Nitrogen 15 mg/dL (7-17); Calcium 9.8 mg/dL (8.4-10.2); Carbon Dioxide 25 mmol/L (22-32); Chloride 103 mmol/L (98-107); Creatine Kinase 132 U/L (30-135); Estimated Glomerular Filt Rate > 60 mL/min (>60); Globulin 2.9 g/dL (1.7-4.1); Glucose 108 mg/dL (70-100); HEMOLYSIS < 15 (0-50); Potassium 3.7 mmol/L (3.4-5.1); Sodium 137 mmol/L (137-145); Total Protein 7.6 g/dL (6.3-8.2)
[2022-01-29 18:25] LABS: Erythrocyte Sedimentation Rate 13 MM/HR (0-20)
[2022-01-29 18:30] LABS: NT-proBNP (BNP-Adult 18+) 29 pg/mL (<125)
[2022-01-29 18:52] LABS: TSH w/ Reflex to FT4 1.98 uIU/mL (0.47-4.68)
== END ==
PROVIDERS: PCP Family Medicine; Referring Provider Pediatrics; Visit Provider Pediatrics
DX: R00.2 Palpitations (principal); R09.89 Other specified symptoms and signs involving the circulatory and respiratory systems; U09.9 Post COVID-19 condition, unspecified
CPT/HCPCS: 36415; 71046; 80053; 82550; 83880; 84443; 85025; 85651

== ENCOUNTER → 2024-05-09 09:54 | Outpatient (CLI) | payer OTHER, SELFPAY ==
[2021-05-10 23:00] VITALS: BMI 22.1
[2024-05-09 10:36] LABS: Hematocrit 38.1 % (36-46); Mean Corpuscular HGB Conc 34.2 % (30-36); Mean Corpuscular Hemoglobin 30.5 PG (26-34); Mean Corpuscular Volume 89.3 fL (80-100); Platelet Count 284 X10^3/uL (150-400); Red Blood Cell Count 4.27 X10^6/uL (4.0-5.2); Red Cell Distribution Width 13.3 % (11.6-14.8); White Blood Cell Count 5.8 X10^3/uL (4.5-11.0)
[2024-05-09 10:59] LABS: BUN Creatinine Ratio 21.9 (6-22); Blood Urea Nitrogen 14 mg/dL (7-17); Calcium 9.8 mg/dL (8.4-10.2); Carbon Dioxide 27 mmol/L (22-32); Chloride 103 mmol/L (98-107); Estimated Glomerular Filt Rate > 60 mL/min (>60); Glucose 91 mg/dL (70-100); HEMOLYSIS < 15 (0-50); Hemoglobin A1C% w Est Avg Glu 5.1 % (4.0-6.0); Potassium 4.1 mmol/L (3.4-5.1); Sodium 137 mmol/L (137-145)
== END ==
PROVIDERS: PCP Nurse Practitioner Family; Referring Provider Nurse Practitioner Family; Visit Provider Nurse Practitioner Family
DX: R63.1 Polydipsia (principal); R53.83 Other fatigue; R63.2 Polyphagia; R35.89 Other polyuria; G90.A Postural orthostatic tachycardia syndrome [POTS]; N94.6 Dysmenorrhea, unspecified; Z86.69 Personal history of other diseases of the nervous system and sense organs
CPT/HCPCS: 36415; 80048; 83036; 85027

== ENCOUNTER → 2024-06-21 09:24 | Outpatient (CLI) | payer OTHER, SELFPAY ==
[2021-05-10 23:00] VITALS: BMI 22.1
[2024-06-21 11:12] LABS: TSH w/ Reflex to FT4 4.39 uIU/mL (0.47-4.68)
== END ==
PROVIDERS: PCP Nurse Practitioner Family; Referring Provider Nurse Practitioner Family; Visit Provider Nurse Practitioner Family
DX: R53.83 Other fatigue (principal); R63.5 Abnormal weight gain
CPT/HCPCS: 36415; 84443

== ENCOUNTER → 2024-07-18 16:35 | Outpatient (CLI) | payer OTHER, SELFPAY ==
[2021-05-10 23:00] VITALS: BMI 22.1
--- NOTE | 2024-07-18 16:35 | DI.US.S_ITS ---
PROCEDURE: US PELVIC COMPLETE INDICATIONS: Menorrhagia and severe dysmenorrhea TECHNIQUE: Real-time scanning was performed of the pelvic organs, with image documentation. Additional endovaginal scanning was necessary due to incomplete visualization of the adnexal and endometrial structures by transabdominal scanning. COMPARISON: [facility], US, US PELVIC COMPLETE, 01/13/2021, 13:17. FINDINGS: Uterus: Uterus is anteverted and normal in size at 9.9 x 5.1 x 5.5 cm. The myometrium is homogeneous. The endometrium measures 9 mm combined thickness. Ovaries: The right ovary measures 2.6 x 2.0 x 3.1 cm, with a calculated ovarian volume of 8 cc. The left ovary measures 3.3 x 4.0 x 3.1 cm, with a calculated ovarian volume of 21 cc. The ovaries have a normal sonographic appearance. Less than 12 follicles can be seen in each ovary. No adnexal masses are seen. Other: No pathologic free abdominal or pelvic fluid. IMPRESSION: Normal pelvic ultrasound. We strive to produce accurate, complete, and clear reports of imaging services. To assist us in improving patient care, this report was composed using standard report templates and voice recognition software. Therefore, it may contain abnormal punctuation, insertions and/or omissions. Occasional wrong-word or sound-alike substitutions may occur. Though we review the report and make efforts to correct it, we do recommend that the report be read carefully in proper context to recognize any text inaccuracies. Dictated by: Riki Love M.D. on 07/19/2024 at 12:16 Approved by: Riki Love M.D. on 07/19/2024 at 12:17
== END ==
PROVIDERS: PCP Nurse Practitioner Family; Referring Provider Obstetrics & Gynecology; Visit Provider Obstetrics & Gynecology
DX: N94.10 Unspecified dyspareunia (principal); R10.2 Pelvic and perineal pain; N92.1 Excessive and frequent menstruation with irregular cycle
CPT/HCPCS: 76830; 76856

== ENCOUNTER 2024-08-31 11:17 | Emergency (ER) | payer OTHER, SELFPAY ==
[2021-05-10 23:00] VITALS: BMI 22.1
[2024-08-31 11:30] VITALS: BP 128/74; PULSE 85; RESP 13; TEMP 36.7; O2SAT 100; BMI 28.3
--- NOTE | 2024-08-31 11:50 | DI.US.S_ITS ---
PROCEDURE: US PELVIC COMPLETE INDICATIONS: L pelivic pain, ?ov cyst ? rupture TECHNIQUE: Real-time scanning was performed of the pelvic organs, with image documentation. Additional endovaginal scanning was necessary due to incomplete visualization of the adnexal and endometrial structures by transabdominal scanning. COMPARISON: [facility], , US PELVIC COMPLETE, 07/18/2024, 16:50. FINDINGS: Uterus: Uterus is anteverted and normal in size at 9.1 x 4.9 x 5.5 cm. The myometrium is somewhat heterogeneous in echotexture. The endometrium measures 5.1 mm combined thickness. There is a right posterior intramural fibroid measuring 2.4 x 1.3 x 1.7 cm Ovaries: The right ovary measures 2.5 x 2.8 x 1.5 cm, with a calculated ovarian volume of 5.6 cc. The left ovary measures 1.9 x 3.3 x 2.3 cm, with a calculated ovarian volume of 7.2 cc. The ovaries have a normal sonographic appearance. Less than 12 follicles can be seen in each ovary. No adnexal masses are seen. Other: There is a small amount of fluid with low level echoes suggesting possible blood products. Bilateral intra-ovarian flow by duplex. IMPRESSION: 1. No evidence of ovarian torsion. 2. No significant cysts identified involving the ovaries. 3. There is a small amount of fluid present in the pelvis, potentially hemorrhagic in nature. This may possibly indicate recent cyst rupture. We strive to produce accurate, complete, and clear reports of imaging services. To assist us in improving patient care, this report was composed using standard report templates and voice recognition software. Therefore, it may contain abnormal punctuation, insertions and/or omissions. Occasional wrong-word or sound-alike substitutions may occur. Though we review the report and make efforts to correct it, we do recommend that the report be read carefully in proper context to recognize any text inaccuracies. Dictated by: Michael Valle M.D. on 08/31/2024 at 13:12 Approved by: Michael Valle M.D. on 08/31/2024 at 13:15
--- NOTE | 2024-08-31 11:50 | ED.GENADULT ---
HPI - General Adult General Chief complaint: Abdominal Pain Stated complaint: Possible Ruptured Left Ovary Time Seen by Provider: 08/31/24 11:50 Source: patient Mode of arrival: Family Vehicle Related Data Home Medications Medication Instructions Recorded Confirmed No Known Home Medications 06/28/24 07/20/24 Allergies Allergy/AdvReac Type Severity Reaction Status Date / Time No Known Drug Allergies Allergy Verified 08/31/24 11:35 Patient History Medical History (Updated 05/09/24 @ 10:55 [facility] POTS (postural orthostatic tachycardia syndrome) COVID-19 long hauler Palpitations Atrial tachycardia, paroxysmal Bilateral finger numbness Acute hypoxemic respiratory failure COVID History of migraine with aura Family history of endometriosis Dyspareunia in female Pelvic pain in female Dysmenorrhea Premenstrual dysphoric syndrome Restless legs Weight gain due to medication Menometrorrhagia Back pain Bruxism (teeth grinding) Anxiety and depression Surgical History Anesthesia History of tonsillectomy (~1994) Family History Father Diabetes mellitus Aortic stenosis History of heart disease Hypertension Mental health problem Depression Anxiety Mother Anemia Hypoglycemic syndrome Grandfather History of heart disease Hyperlipidemia Grandmother Hyperlipidemia Mental health problem Anxiety Grandfather Diabetes mellitus Mental health problem Anxiety Depression Social History household members: family Smoking Status: Never smoker Smoking Status: Never smoker alcohol intake frequency: 0-2 drinks per day Exam Initial Vital Signs Initial Vital Signs: Vital Signs Temperature 98.1 F 08/31/24 11:30 Pulse Rate 85 08/31/24 11:30 Respiratory Rate 13 08/31/24 11:30 Blood Pressure 128/74 08/31/24 11:30 Pulse Oximetry 100 08/31/24 11:30 Oxygen Delivery Method Room Air 08/31/24 11:30 Course Orders Ordered: ED Orders 08/31/24 11:41 Complete Blood Count AUTO DIFF Stat Comprehensive Metabolic Panel Stat Lipase Stat Ondansetron HCl (Ondansetron 4 Mg/2 Ml Inj) 4 mg IV NOW PRN PRN Reason: Nausea And Vomiting Ondansetron HCl (Ondansetron 4 Mg Odt) 4 mg PO NOW PRN PRN Reason: Nausea And Vomiting Vital Signs Vital signs: Vital Signs - 8 hr 08/31/24 11:30 Temperature 98.1 F Pulse Rate 85 Respiratory Rate 13 Blood Pressure 128/74 Pulse Oximetry 100 Oxygen Delivery Method Room Air Medical Decision Making Lab Data 08/31/24 11:41 08/31/24 11:41 Discharge Plan Departure Prescriptions: No Action No Known Home Medications Referrals: Janina Rangel, SPECIAL OFFICER-BC [Primary Care Provider] -
[2024-08-31 11:51] LABS: Add Manual Diff / Slide Review NO; Basophils Absolute Auto 100 /uL (0-100); Basophils Percent Auto 0.6 % (0-2); Eosinophils Absolute Auto 100 /uL (0-450); Eosinophils Percent Auto 1.5 % (2-4); Hematocrit 39.6 % (36-46); Hemoglobin 13.4 g/dL (12.0-16.0); Lymphocytes Absolute Auto 2400 /uL (1100-4500); Lymphocytes Percent Auto 24.8 % (25-40); Mean Corpuscular HGB Conc 33.8 % (30-36); Mean Corpuscular Hemoglobin 29.9 PG (26-34); Mean Corpuscular Volume 88.3 fL (80-100); Monocytes Absolute Auto 600 /uL (0-900); Neutrophils Absolute Auto 6500 /uL (1500-7000); Neutrophils Percent Auto 67.1 % (50-75); Platelet Count 294 X10^3/uL (150-400); Red Blood Cell Count 4.49 X10^6/uL (4.0-5.2); Red Cell Distribution Width 13.1 % (11.6-14.8); White Blood Cell Count 9.6 X10^3/uL (4.5-11.0)
--- NOTE | 2024-08-31 11:58 | ED_ITS ---
HPI - Abdominal Pain <Belia Quinones PA-C - Last Filed: 08/31/24 13:56> General Chief Complaint: Abdominal Pain Stated Complaint: Possible Ruptured Left Ovary Time Seen by Provider: 08/31/24 11:50 Source: patient Mode of arrival: Family Vehicle History of Present Illness HPI narrative: Ms. Bean is a very pleasant 39-year-old female with a past medical history of menometrorrhagia with partial hysterectomy planned with OBGYN Dr. Gayle 10/18/24 who presents to the emergency department for acute left lower quadrant abdominal pain and concern for ?possible ruptured left ovarian cyst?. Patient is a special education resource room teacher and was at work when she developed sudden left lower quadrant abdominal pain at approximately 10:30 a.m. this morning while using the bathroom/urinating. Her best friend and co-worker drove her to the emergency room. The pain has been constant and is even radiating down her leg. States that while the pain is constant, it does intermittently get more sharp and severe. She describes the pain as very low in the left side of her pelvis. No upper abdominal pain. She does feel nauseous but no vomiting, no bowel or bladder changes, no dysuria hematuria constipation or diarrhea, no fevers or chills. Her menstrual period started yesterday. She took no medications prior to arrival. She has been having no abnormal vaginal discharge and no concern for sexually transmitted infections. Related Data Previous Rx's Medication Instructions Recorded naproxen 500 mg tablet 500 mg PO BID PRN pain #20 tabs 08/31/24 ondansetron 4 mg disintegrating 4 mg PO Q8H PRN nausea and 08/31/24 tablet vomiting #14 tabs Allergies Allergy/AdvReac Type Severity Reaction Status Date / Time No Known Drug Allergies Allergy Verified 08/31/24 11:35 Review of Systems <Belia Quinones PA-C - Last Filed: 08/31/24 13:56> Review of Systems ROS Unobtainable: All systems reviewed & are unremarkable except as noted in HPI and below Patient History <Belia Quinones PA-C - Last Filed: 08/31/24 13:56> Medical History POTS (postural orthostatic tachycardia syndrome) COVID-19 long hauler Palpitations Atrial tachycardia, paroxysmal Bilateral finger numbness Acute hypoxemic respiratory failure COVID History of migraine with aura Family history of endometriosis Dyspareunia in female Pelvic pain in female Dysmenorrhea Premenstrual dysphoric syndrome Restless legs Weight gain due to medication Menometrorrhagia Back pain Bruxism (teeth grinding) Anxiety and depression Surgical History Anesthesia History of tonsillectomy (~1994) Family History Father Diabetes mellitus Aortic stenosis History of heart disease Hypertension Mental health problem Depression Anxiety Mother Anemia Hypoglycemic syndrome Grandfather History of heart disease Hyperlipidemia Grandmother Hyperlipidemia Mental health problem Anxiety Grandfather Diabetes mellitus Mental health problem Anxiety Depression Social History household members: family Smoking Status: Never smoker Smoking Status: Never smoker alcohol intake frequency: 0-2 drinks per day Exam <Belia Quinones PA-C - Last Filed: 08/31/24 13:56> Narrative Exam Narrative: GENERAL: 39 year old patient appears stated age. Well-developed patient, in no acute distress, however visibly uncomfortable due to left lower quadrant pelvic pain. HEAD: Atraumatic. Normocephalic. NECK: Trachea midline. Cervical ROM intact. CARDIOVASCULAR: Regular rate and rhythm. RESPIRATORY: ?Nonlabored respirations. ?Speaking in clear, full sentences. ?Clear to auscultation. GASTROINTESTINAL: Subjective pain in the left low quadrant of the abdomen/pelvis just lateral to the mons pubis. Abdomen soft, nondistended, normal bowel sounds. EXTREMITIES: No edema or joint tenderness. BACK: No CVA tenderness. NEURO: AOx3. ?Clear speech. ?Moves all 4 extremities appropriately. SKIN: No rash or erythema of visible areas Initial Vital Signs Initial Vital Signs: Vital Signs Temperature 98.1 F 08/31/24 11:30 Pulse Rate 85 08/31/24 11:30 Respiratory Rate 13 08/31/24 11:30 Blood Pressure 128/74 08/31/24 11:30 Pulse Oximetry 100 08/31/24 11:30 Oxygen Delivery Method Room Air 08/31/24 11:30 <Idalia Martins MD - Last Filed: 08/31/24 17:47> Initial Vital Signs Initial Vital Signs: Vital Signs Temperature 98.1 F 08/31/24 11:30 Pulse Rate 85 08/31/24 11:30 Respiratory Rate 13 08/31/24 11:30 Blood Pressure 128/74 08/31/24 11:30 Pulse Oximetry 100 08/31/24 11:30 Oxygen Delivery Method Room Air 08/31/24 11:30 Course <Belia Quinones PA-C - Last Filed: 08/31/24 13:56> Orders Ordered: ED Orders 08/31/24 11:41 Complete Blood Count AUTO DIFF Stat Comprehensive Metabolic Panel Stat Lipase Stat 08/31/24 11:50 US pelvic complete Stat 08/31/24 12:15 Urine Microscopic Stat Discontinued Medications Sodium Chloride (Normal Saline 0.9%) 1,000 mls @ 1,000 mls/hr IV BOLUS ONE Stop: 08/31/24 12:56 Last Infusion: 08/31/24 13:17 Dose: Infused Documented By: Admin: 08/31/24 12:18 Dose: 1,000 mls/hr Documented By: CHOCO Ketorolac Tromethamine (Ketorolac 30 Mg/Ml Vial) 15 mg IV NOW ONE Stop: 08/31/24 11:58 Last Admin: 08/31/24 12:19 Dose: 15 mg Documented By: CHOCO Morphine Sulfate (Morphine 4 Mg/Ml Inj) 4 mg IV NOW ONE Stop: 08/31/24 11:58 Last Admin: 08/31/24 12:20 Dose: 4 mg Documented By: CHOCO Ondansetron HCl (Ondansetron 4 Mg/2 Ml Inj) 4 mg IV NOW PRN PRN Reason: Nausea And Vomiting Last Admin: 08/31/24 12:18 Dose: 4 mg Documented By: CHOCO Ondansetron HCl (Ondansetron 4 Mg Odt) 4 mg PO NOW PRN PRN Reason: Nausea And Vomiting Ondansetron HCl (Ondansetron 4 Mg/2 Ml Inj) 4 mg IV NOW ONE Stop: 08/31/24 11:58 Last Admin: 08/31/24 12:21 Dose: Not Given Documented By: CHOCO Vital Signs Vital signs: Vital Signs - 8 hr 08/31/24 11:30 08/31/24 13:19 Temperature 98.1 F Pulse Rate 85 73 Respiratory Rate 13 16 Blood Pressure 128/74 114/76 Pulse Oximetry 100 98 Oxygen Delivery Method Room Air Room Air <Idalia Martins MD - Last Filed: 08/31/24 17:47> Orders Ordered: ED Orders 08/31/24 11:41 Complete Blood Count AUTO DIFF Stat Comprehensive Metabolic Panel Stat Lipase Stat 08/31/24 11:50 US pelvic complete Stat 08/31/24 12:15 Urine Microscopic Stat Discontinued Medications Sodium Chloride (Normal Saline 0.9%) 1,000 mls @ 1,000 mls/hr IV BOLUS ONE Stop: 08/31/24 12:56 Last Infusion: 08/31/24 13:17 Dose: Infused Documented By: Admin: 08/31/24 12:18 Dose: 1,000 mls/hr Documented By: CHOCO Ketorolac Tromethamine (Ketorolac 30 Mg/Ml Vial) 15 mg IV NOW ONE Stop: 08/31/24 11:58 Last Admin: 08/31/24 12:19 Dose: 15 mg Documented By: CHOCO Morphine Sulfate (Morphine 4 Mg/Ml Inj) 4 mg IV NOW ONE Stop: 08/31/24 11:58 Last Admin: 08/31/24 12:20 Dose: 4 mg Documented By: CHOCO Ondansetron HCl (Ondansetron 4 Mg/2 Ml Inj) 4 mg IV NOW PRN PRN Reason: Nausea And Vomiting Last Admin: 08/31/24 12:18 Dose: 4 mg Documented By: CHOCO Ondansetron HCl (Ondansetron 4 Mg Odt) 4 mg PO NOW PRN PRN Reason: Nausea And Vomiting Ondansetron HCl (Ondansetron 4 Mg/2 Ml Inj) 4 mg IV NOW ONE Stop: 08/31/24 11:58 Last Admin: 08/31/24 12:21 Dose: Not Given Documented By: CHOCO Vital Signs Vital signs: Vital Signs - 8 hr 08/31/24 11:30 08/31/24 13:19 Temperature 98.1 F Pulse Rate 85 73 Respiratory Rate 13 16 Blood Pressure 128/74 114/76 Pulse Oximetry 100 98 Oxygen Delivery Method Room Air Room Air MDM - Abdominal Pain <Belia Quinones PA-C - Last Filed: 08/31/24 13:56> Medical Records Attestation: I reviewed the patient's medical records. Medical records narrative: Evaluation by Gynecology Dr. Gayle on 06/28/2024 and 07/20/2024. Lab Data 08/31/24 11:41 08/31/24 11:41 Labs: Lab Results 08/31/24 08/31/24 Range/Units 11:41 12:15 WBC 9.6 (4.5-11.0) X10^3/uL RBC 4.49 (4.0-5.2) X10^6/uL Hgb 13.4 (12.0-16.0) g/dL Hct 39.6 (36-46) % MCV 88.3 (80-100) fL MCH 29.9 (26-34) PG MCHC 33.8 (30-36) % RDW 13.1 (11.6-14.8) % Plt Count 294 (150-400) X10^3/uL Neut % (Auto) 67.1 (50-75) % Lymph % (Auto) 24.8 L (25-40) % [place] % (Auto) 6.0 (3-14) % Eos % (Auto) 1.5 L (2-4) % Baso % (Auto) 0.6 (0-2) % Neut # (Auto) 6500 (8229-1739) /uL Lymph # (Auto) 2400 (5839-0101) /uL [place] # (Auto) 600 (0-900) /uL Eos # (Auto) 100 (0-450) /uL Baso # (Auto) 100 (0-100) /uL Sodium 137 (137-145) mmol/L Potassium 3.9 (3.4-5.1) mmol/L Chloride 104 (98-107) mmol/L Carbon Dioxide 25 (22-32) mmol/L BUN 12 (7-17) mg/dL Creatinine 0.72 (0.52-1.04) mg/dL Estimated GFR > 60 (>60) mL/min BUN/Creatinine Ratio 16.7 (6-22) Glucose 107 H (70-100) mg/dL Calcium 9.3 (8.4-10.2) mg/dL Total Bilirubin 0.9 (0.2-1.3) mg/dL AST 26 (14-36) IU/L ALT 20 (<35) IU/L Alkaline Phosphatase 76 (38-126) U/L Total Protein 8.2 (6.3-8.2) g/dL Albumin 4.8 (3.5-5.0) g/dL Globulin 3.4 (1.7-4.1) g/dL Albumin/Globulin Ratio 1.4 (1.0-2.8) Lipase 105 (23-300) U/L Urine RBC 5-10/hpf H (0-5/HPF) Urine WBC None seen (0-5/HPF) Ur Squamous Epith Cells 1-5 /hpf (0-5/HPF) Urine Bacteria None seen (None) Ur Culture Indicated? Cult not indicated Vol Urine Centrifuged 10ml (spun) Point of care testing: Point of Care Testing Test Results Negative Urine Dip Bedside Urine Glucose Negative Bedside Urine Bilirubin - Negative Bedside Urine Ketone - Negative Urine Specific [place] 1.015 Bedside Urine Occult Blood ++ Bedside Urine pH 6.0 Bedside Urine Protein - Negative Bedside Urine Urobilinogen - Negative Bedside Urine Nitrite - Negative Bedside Urine Leukocytes - Negative Esterase Imaging Data Pelvic US: Radiologist's Impression: PROCEDURE: US PELVIC COMPLETE INDICATIONS: L pelivic pain, ?ov cyst ? rupture TECHNIQUE: Real-time scanning was performed of the pelvic organs, with image documentation. Additional endovaginal scanning was necessary due to incomplete visualization of the adnexal and endometrial structures by transabdominal scanning. COMPARISON: [facility], US, US PELVIC COMPLETE, 07/18/2024, 16:50. FINDINGS: Uterus: Uterus is anteverted and normal in size at 9.1 x 4.9 x 5.5 cm. The myometrium is somewhat heterogeneous in echotexture. The endometrium measures 5.1 mm combined thickness. There is a right posterior intramural fibroid measuring 2.4 x 1.3 x 1.7 cm Ovaries: The right ovary measures 2.5 x 2.8 x 1.5 cm, with a calculated ovarian volume of 5.6 cc. The left ovary measures 1.9 x 3.3 x 2.3 cm, with a calculated ovarian volume of 7.2 cc. The ovaries have a normal sonographic appearance. Less than 12 follicles can be seen in each ovary. No adnexal masses are seen. Other: There is a small amount of fluid with low level echoes suggesting possible blood products. Bilateral intra-ovarian flow by duplex. IMPRESSION: 1. No evidence of ovarian torsion. 2. No significant cysts identified involving the ovaries. 3. There is a small amount of fluid present in the pelvis, potentially hemorrhagic in nature. This may possibly indicate recent cyst rupture. MDM Narrative Medical decision making narrative: 39-year-old female with a past medical history of menometrorrhagia with partial hysterectomy planned with OBGYN Dr. Gayle 10/18/24 who presents to the emergency department for acute left lower quadrant abdominal pain and concern for ?possible ruptured left ovarian cyst?. Currently on day 2 of her menstrual cycle. Differential diagnosis includes but is not limited to left ovarian cyst, ruptured cyst, ovarian torsion, dysmenorrhea, diverticulitis, UTI, nephrolithiasis, ureterolithiasis, etc. On exam patient is in no acute distress, nontoxic-appearing, all vital signs normal limits. She is visibly uncomfortable due to left lower quadrant abdominal/pelvic pain. Abdominal lab work obtained in triage, pelvic ultrasound added on for further evaluation in addition to treatment with Toradol, morphine, Zofran, IV fluids. test: negative. UA: positive for occult blood, negative for signs of infection. Labs reveal normal WBC count 9.6, hemoglobin 13.4 hematocrit 39.6. Platelets 294. Normal electrolytes, normal renal function with a BUN of 12 creatinine of 0.72. Glucose 107. Normal LFTs and lipase. Pelvic US: Double Surface Operator discussed pelvic ultrasound results with the attending physician Dr. Martins, ultrasound reveals no large cyst, no ovarian torsion. Small amount of fluid in the cul-de-sac. Suspect patient's symptoms related to small possible ruptured cyst vs dysmenorrhea. Final pelvic ultrasound reveals no evidence of ovarian torsion, and no significant cysts, there is small amount of fluid present the pelvis potentially hemorrhagic in nature this may possibly indicate recent cyst rupture. Patient's pain improved significantly during ED stay, repeat abdominal exam benign. Recommended naproxen, Zofran if needed, rest, hydration, prompt follow up with OBGYN. We discussed strict ED return precautions. Patient verbalized understanding of all information is agreeable to the plan. Her is here to take her home. She is stable for discharge. <Idalia Martins MD - Last Filed: 08/31/24 17:47> Lab Data Labs: Lab Results 08/31/24 08/31/24 Range/Units 11:41 12:15 WBC 9.6 (4.5-11.0) X10^3/uL RBC 4.49 (4.0-5.2) X10^6/uL Hgb 13.4 (12.0-16.0) g/dL Hct 39.6 (36-46) % MCV 88.3 (80-100) fL MCH 29.9 (26-34) PG MCHC 33.8 (30-36) % RDW 13.1 (11.6-14.8) % Plt Count 294 (150-400) X10^3/uL Neut % (Auto) 67.1 (50-75) % Lymph % (Auto) 24.8 L (25-40) % [place] % (Auto) 6.0 (3-14) % Eos % (Auto) 1.5 L (2-4) % Baso % (Auto) 0.6 (0-2) % Neut # (Auto) 6500 (4439-3990) /uL Lymph # (Auto) 2400 (7935-6801) /uL [place] # (Auto) 600 (0-900) /uL Eos # (Auto) 100 (0-450) /uL Baso # (Auto) 100 (0-100) /uL Sodium 137 (137-145) mmol/L Potassium 3.9 (3.4-5.1) mmol/L Chloride 104 (98-107) mmol/L Carbon Dioxide 25 (22-32) mmol/L BUN 12 (7-17) mg/dL Creatinine 0.72 (0.52-1.04) mg/dL Estimated GFR > 60 (>60) mL/min BUN/Creatinine Ratio 16.7 (6-22) Glucose 107 H (70-100) mg/dL Calcium 9.3 (8.4-10.2) mg/dL Total Bilirubin 0.9 (0.2-1.3) mg/dL AST 26 (14-36) IU/L ALT 20 (<35) IU/L Alkaline Phosphatase 76 (38-126) U/L Total Protein 8.2 (6.3-8.2) g/dL Albumin 4.8 (3.5-5.0) g/dL Globulin 3.4 (1.7-4.1) g/dL Albumin/Globulin Ratio 1.4 (1.0-2.8) Lipase 105 (23-300) U/L Urine RBC 5-10/hpf H (0-5/HPF) Urine WBC None seen (0-5/HPF) Ur Squamous Epith Cells 1-5 /hpf (0-5/HPF) Urine Bacteria None seen (None) Ur Culture Indicated? Cult not indicated Vol Urine Centrifuged 10ml (spun) Point of care testing: Point of Care Testing Test Results Negative Urine Dip Bedside Urine Glucose Negative Bedside Urine Bilirubin - Negative Bedside Urine Ketone - Negative Urine Specific [place] 1.015 Bedside Urine Occult Blood ++ Bedside Urine pH 6.0 Bedside Urine Protein - Negative Bedside Urine Urobilinogen - Negative Bedside Urine Nitrite - Negative Bedside Urine Leukocytes - Negative Esterase Discharge Plan Departure Patient Disposition: Home Clinical Impression: Left lower quadrant abdominal pain, Dysmenorrhea Instructions: DI for Ovarian Cyst Activity Restrictions/Additional Instructions: Dear Ms. Bean, Thank you for coming to the emergency department today. You were evaluated for left lower quadrant abdominal pain, your lab work and urine exam revealed no signs of concern, and your pelvic ultrasound did not reveal any obvious abnormalities. Your symptoms very well could be related to a previously ruptured ovarian cyst. Please rest, hydrate, use the prescribed pain medication (naproxen) and nausea medicine (Zofran) if needed. Please follow up with your OBGYN as soon as possible. Return to the emergency department if you develop any new or worsening symptoms, changes in bowel movements, fevers, painful urination, or any other concerns. Please follow up with your primary care doctor within the next 2-3 days for ER follow-up. (If you do not have a PCP you can call [phone]. ?to schedule an appointment with an [facility] Primary Care Provider) IF YOU DEVELOP ANY NEW OR WORSENING SYMPTOMS, RETURN TO THE ER! Please read the attached instructions, they highlight more specific treatments and interventions for you at home. Thank you for letting me participate in your care, Belia Quinones PA-C Prescriptions: New naproxen 500 mg tablet 500 mg PO BID PRN (Reason: pain) Qty: 20 0RF ondansetron 4 mg tablet,disintegrating 4 mg PO Q8H PRN (Reason: nausea and vomiting) Qty: 14 0RF Referrals: Janina Rangel FNP-JAIMEE [Primary Care Provider] - Leonard Gayle MD [Physician] - (ER visit for LLQ pelvic pain) Stand Alone Forms: Patient Portal/API/Survey ED Sign-out <Idalia Martins MD - Last Filed: 08/31/24 17:47> Cosign ED Attending Cosgeorgesature Attestation: Patient care was discussed in real-time with Juan Joni. Agree with ultrasound imaging is ordered. And plans and discussion as outlined
[2024-08-31 12:00] LABS: Alanine Aminotransferase 20 IU/L (<35); Albumin 4.8 g/dL (3.5-5.0); Albumin Globulin Ratio 1.4 (1.0-2.8); Alkaline Phosphatase 76 U/L (38-126); Aspartate Aminotransferase 26 IU/L (14-36); BUN Creatinine Ratio 16.7 (6-22); Bilirubin Total 0.9 mg/dL (0.2-1.3); Blood Urea Nitrogen 12 mg/dL (7-17); Calcium 9.3 mg/dL (8.4-10.2); Carbon Dioxide 25 mmol/L (22-32); Chloride 104 mmol/L (98-107); Estimated Glomerular Filt Rate > 60 mL/min (>60); Globulin 3.4 g/dL (1.7-4.1); Glucose 107 mg/dL (70-100); HEMOLYSIS < 15 (0-50); Lipase 105 U/L (23-300); Potassium 3.9 mmol/L (3.4-5.1); Sodium 137 mmol/L (137-145); Total Protein 8.2 g/dL (6.3-8.2)
[2024-08-31] MEDS: SODIUM CHLORIDE 0.9% 1,000 ML 1000 ML IV (12:18)
[2024-08-31] MEDS: ONDANSETRON 4 MG/2 ML INJ IV (12:18)
[2024-08-31] MEDS: KETOROLAC 30 MG/ML VIAL 15 MG IV (12:19)
[2024-08-31] MEDS: MORPHINE 4 MG/ML INJ IV (12:20)
[2024-08-31 12:21] LABS: Urine Volume 10mL (spun)
[2024-08-31 12:30] LABS: Bacteria Urine None Seen; RBC Urine 5-10/HPF (0-5/HPF); WBC Urine None Seen (0-5/HPF)
[2024-08-31 12:31] LABS: Culture Indicated Urine Cult Not Indicated; Squamous Epithelial Cell Urine 1-5 /HPF (0-5/HPF)
[2024-08-31 13:19] VITALS: BP 114/76; PULSE 73; RESP 16; O2SAT 98
== END 2024-08-31 13:20 | disposition home or self-care (01) ==
PROVIDERS: Emergency Medicine; Emergency Provider Physician Assistant; PCP Nurse Practitioner Family
DX: R10.32 Left lower quadrant pain (principal); N94.6 Dysmenorrhea, unspecified
CPT/HCPCS: 36415; 76830; 76856; 80053; 81003; 81015; 81025; 83690; 85025; 96361; 96374; 96375; 99284; J1885; J2270; J2405

== ENCOUNTER 2024-10-18 09:00 | Day surgery (SDC) | payer OTHER, SELFPAY ==
[2021-05-10 23:00] VITALS: BMI 22.1
[2024-10-15 15:09] VITALS: BMI 28.5
[2024-10-18] VITALS (11 sets, daily range): BP systolic 93–128; BP diastolic 53–77; PULSE 60–96; RESP 8–18; TEMP 36.1–36.4; O2SAT 93–100; BMI 28.3; BMI 28.0
--- NOTE | 2024-10-18 | PATH_ITS ---
[facility] Accession Number: [id number] No. of containers..02 Tissue . 01 Material submitted: . PART A: uterus - UTERUS,CERVIX,BILATERAL FALLOPIAN TUBES PART B: PERINEAL - PERINEAL BIOPSY, LEFT PELVIC SIDE WALL . 01 Diagnosis: A. UTERUS, CERVIX, BILATERAL FALLOPIAN TUBES, LAPAROSCOPIC TOTAL HYSTERECTOMY WITH BILATERAL SALPINGECTOMY (WEIGHT 122 GRAMS): Cervix with no significant histomorphologic abnormality. Endocervix with no significant hiatologic abnormality. Proliferative endometrium; negative for endmoetrioid intraepithelial neoplasia or malignancy. Myometrium with a benign intramural leiomyoma (13 mm in greatest dimension). Uterine serosa with a subserosal leiomyoma (3 mm in greatest dimension). Left fallopian tube, complete cross-sections, with a benign paratubal cyst; negative for significant atypia. Right fallopian tube, complete cross-sections, with a benign paratubal cyst and no significant abnormalities. . B. PERINEAL BIOPSY, LEFT PELVIC SIDEWALL: Connective tissue involved by endometriosis. MRV 10/22/2024 1729 Local . 01 Electronically signed: . Mary Guillory MD, Pathologist NPI- [id number] . 01 Gross description: . A. Received in formalin with two identifiers and uterus, cervix, bilat fallopian tubes, is an intact uterus (122 grams, 9.5 cm from superior to inferior, 7.0 cm from medial to lateral, and 5.5 cm anterior to posterior) with attached cervix (3.3 x 3.0 cm), left fimbriated fallopian tube (6.1 x 0.9 cm), right fimbriated fallopian tube (9.3 x 0.9 cm), and no additional adnexa. . The ectocervix is olmstead-pantoja, smooth, and glistening with a patulous os, 0.7 cm in diameter. The anterior cervical margin is inked blue while the posterior paracervical margin is inked black. The serosa is pantoja and smooth with a pale pantoja subserosal nodule 0.3 x 0.3 x 0.1 cm. The endocervical canal is patent and has pantoja herringbone mucosa measuring 3.2 cm in length. The endometrial cavity is 2.6 cm from cornu to cornu and 5.1 cm in length with pink-red velvety endometrium that averages 0.3 cm thick. The myometrium is pantoja and moderately trabecular with a well-circumscribed white whorled nodule located intramurally measuring 1.3 cm in greatest dimension with no hemorrhage or necrosis identified. The myometrium measures up to 3.0 cm in maximum thickness. . Both tubes have violaceous smooth serosa with multiple thin-walled simple cysts up to 2.5 cm in greatest dimension filled with clear to pantoja serous fluid. The lumens are stellate and unremarkable. [place] sections are submitted as follows: A1: Anterior cervix. A2: Posterior cervix. A3: Anterior full thickness section. A4: Posterior full thickness section. A5: Small serosal nodule and additional sections of intramural nodule. A6: Left fallopian tube include one-half of bisected fimbria and cross-sections. A7: Right fallopian tube to include one half of bisected fimbria and cross sections. B. Received in formalin with two identifiers and perineal biopsy L pelvic sidewall, is a pantoja, roughened soft tissue fragment covered in cautery artifact measuring 1.6 x 1.1 x 0.3 cm. The specimen is inked blue, serially sectioned, and submitted entirely in B1. ([id number]) /MRV 10/20/20242057 Local . 01 Pathologist provided ICD-10: N94.10, N92.1, N94.6 . 01 CPT . 426254, [id number] Specimen Comment: A courtesy copy of this report has been sent to [phone] Performed at: [address] [facility] [address], [place], [place] [id number] MD Richard Manning MD Phone: [phone]
--- NOTE | 2024-10-18 09:46 | PM.PREOP ---
Pre-operative Note COVID-19 COVID-19 status: Not tested Interval Note History & Physical reviewed/Exam performed by Physician: Yes Changes to H&P: No
[2024-10-18] MEDS: FAMOTIDINE 20 MG/2 ML VIAL IV (09:48)
[2024-10-18] MEDS: LACTATED RINGERS 1,000 ML 42 ML IV (09:48)
[2024-10-18] MEDS: ACETAMINOPHEN 325 MG TABLET 975 MG PO (09:48)
[2024-10-18] MEDS: CEFAZOLIN 2 GM/100 ML PREMIX 100 ML IV (11:48)
--- NOTE | 2024-10-18 12:02 | SUR.OPER ---
Lithotomy on padded OR bed. Henrietta Pad Positioner under torso. Head on pillow, arms padded and tucked at sides. Legs secured in padded yellow fins stirrups.
[2024-10-18] MEDS: BUPIVACAINE 0.25% W/ EPI 30 ML VIAL INJ (12:59)
--- NOTE | 2024-10-18 14:02 | P.OP_ITS ---
Operative Date/Time/Diagnoses Date of procedure: 10/18/24 Time of procedure: 11:55 Pre-op diagnosis: Menorrhagia Dysmenorrhea Dyspareunia Post-op diagnosis: other (Same as above and minimal pelvic peritoneal endometriosis) Procedure & Clinicians Procedure: Procedures Operation Date: 10/18/24 10:45 Actual Procedure Side Surgeon p Laparoscopic Total Hysterectomy with bilateral salpingectomy Leonard Gayle MD s Excision and fulguration of pelvic peritoneal endometriosis s Mid urethral sling WITH CYSTOSCOPY Leonard Gayle MD Indications: Autumn returns now to discuss possible surgery for her longstanding symptoms of menorrhagia, dysmenorrhea, and dyspareunia. She had been on daily norethindrone 1st at 5 mg daily and then .35 mg daily but discontinued the norethindrone due to side effects. Those medications were reporting significant improvement in her symptoms but since discontinuing, the dysmenorrhea, menorrhagia, and dyspareunia have all increased in intensity. Her most recent Pap smear was just a few days ago. She has not had endometrial sampling. Her last imaging was in 2020 and was normal at that time. Review of symptoms is positive for XAVI but negative for intermenstrual or postcoital bleeding. Dyspareunia is deep and in the same spot each time it occurs. In addition to her dyspareunia and dysmenorrhea, she now as a sense of heaviness in the pelvis which is constant but worsens consistently with her menses. Patient also has some sensations that feel like rectal pain. We had an extensive discussion regarding options for treatment of her symptoms. Based on the longstanding nature of the symptoms, inability to tolerate progestin therapy, and family history endometriosis requiring hysterectomy, surgical intervention is appearing to be more and more likely. Will obtain a follow-up ultrasound and have the patient return in about 3 weeks at which time will plan to do an endometrial biopsy and discuss surgical options. Patient's review of systems is also positive for XAVI and will also discuss mid urethral sling as part of her surgery. Endometrial sampling preop is negative for significant abnormality and Pap is current. After consideration of all options, we are proceeding with total laparoscopic hysterectomy and bilateral salpingectomy with mid urethral sling placement and cystoscopy. She presents today for her scheduled surgery. Surgeon: Leonard Gayle Speech Language Pathologist Prn: Niharika Carr Anesthesia Type: General Operative Notes Findings: The uterus is normal in size and there is a subserosal myoma on the posterior wall of the fundus. There were no abnormalities noted in the anterior cul-de-sac. In the cul-de-sac there are several superficial endometriotic implants involving the retro cervical peritoneum, as well as the left pelvic sidewall and left ovarian fossa. There does not appear to be any endometriosis in the right hemipelvis. Both ovaries appeared to be normal and there was a follicular cyst within the right ovary. The remainder the pelvis and abdomen are normal to laparoscopic inspection. Closure Type: primary Specimen(s): left tube, right tube and uterus Applied: catheter Estimated blood loss (mL): 75 Blood products transfused: none Procedure in detail: With the patient in modified dorsal lithotomy position preparations were made by prepping and draping the patient in usual manner for vaginal surgery and inser tion of Bruce catheter. A pre-surgical time-out was then taken in accordance with [facility] policy. A bivalve speculum was then placed in the vagina and the cervix visualized. The anterior lip of the cervix was then grasped with a single-tooth tenaculum. The uterus was sounded to 8 cm, the endocervical canal dilated slightly, and a VCare uterine manipulator with a medium colpotomy cup was placed. The umbilicus was then infiltrated with 0.5% Marcaine with epinephrine. A 1 cm umbilical incision was made transversely and a Veress needle was used to insufflate the abdominal cavity with carbon dioxide. Once the abdomen was appropriately insufflated, a 5 mm trocar and sleeve were then placed through the umbilical incision. The scope was placed through the trocar and the initial assessment of the intra-abdominal contents carried out. A 2nd and 3rd 5 mm port was then placed 1st in the right mid quadrant from then the left mid quadrant by infiltration of the skin and subcutaneous tissues, a 1 cm transverse incision and insertion of the 5 mm bladeless port. Using a 3 puncture technique, the abdomen and pelvis were inspected laparoscopy and photographically documented. Uterus is mobilized with the VCare manipulator and attention turned to the left adnexa. The distal tube was then grasped and the fimbria varicose divided after coagulation with the PowerSeal device. The dissection was then carried out toward the cornua and the fallopian tube amputated. The tube was removed through a 5 mm port and dissection was then carried down using the PowerSeal device so as to divide the utero-ovarian ligament and the round ligament with blunt and sharp dissection of the broad down to the level of the uterine artery. The uterine artery was then skeletonized after development of a bladder flap, coagulated, and divided. Once hemostasis was assured on the left side attention was turned to the right and the tube, utero-ovarian ligament, round ligament, and broad ligament were dissected in a fashion exactly the same as it had been on the left. The right uterine artery was then visualized after skeletonization and coagulated and divided. The uterus was seen to neno after coagulation of both your arteries and the cup was identified through the vaginal muscularis at its insertion with the body of the cervix. Circumferential excision of the vaginal cup was a ccomplished without difficulty using monopolar current and the uterus mobilized. The uterus was then removed through the vagina and the vaginal cuff closed [id number] with a series of 0 Vicryl [id number] stitches. Hemostasis was excellent, the abdomen was re-insufflated, and the pelvis inspected laparoscopically. The pelvis was inspected for any abnormality or bleeding, and the ureters were each seen to be peristalsing freely. The areas of pelvic endometriosis identified previously were then excised or destroyed with monopolar current. Tool Room Machinist biopsy from the left pelvic sidewall was submitted for pathologic evaluation and confirmation the diagnosis of endometriosis. With complete hemostasis assured, the pneumoperitoneum was vented and the ports removed. All of the 5 mm ports were then closed with 4-0 Monocryl on the skin using inverted interrupted sutures. Skin glue was placed and after the glue was dried, an appropriate dressing was applied. Attention was then turned to the vaginaal portion of the case. A weighted speculum was inserted in the vagina and the anterior vaginal wall inspected. A Bruce catheter was inserted in the bladder and the mid urethra was identified by palpation of the Bruce bulb. Once the mid urethra had been identified, 2 Allis clamps were placed and the area of incision infiltrated with 0.25% Marcaine with epinephrine. A 2 cm longitudinal incision of the vaginal mucosa overlying the mid urethra was then made and using Metzenbaum scissors the dissection was carried lateral on both sides so as to be able to safely introduce the retropubic tension-free vaginal tape. The TVT needle was placed 1st on the right side followed by placement of a left up through the suprapubic skin. The needle tips were brought out through the skin and remained in place while the Bruce catheter was removed and cystoscopy performed with findings as noted above. The TVT needles were then brought up through the suprapubic incisions and removed with suture scissors. The mid urethral sling was then appropriately positioned under the mid urethra and the plastic sleeves removed from the TVT once it was in correct position. The redundant portion TVT material was then excised at the skin line of the suprapubic incisions. Correct positioning of the DVT was then confirmed and the vaginal incision closed with 3-0 chromic in a running locking stitch. Pressure was maintained on the retropubic tissues for 5 minutes so as to reduce the risk subsequent bleeding or bruising. The suprapubic incisions were then closed with skin glue and inappropriate dressing was applied. Patient was then awakened from anesthesia and transferred to the PACU for a period of observation and recovery after having tolerated procedure well. Complications: none Post-operative Condition: stable Disposition: PACU Plan for aftercare: Recovery in ambulatory surgery in discharge home later today if pain is under control and she is tolerating oral intake well.
[2024-10-18] MEDS: ONDANSETRON 4 MG/2 ML INJ IV ×2 (14:20→17:03)
[2024-10-18] MEDS: OXYCODONE IR 5 MG TABLET PO ×3 (14:20→23:53)
[2024-10-18] MEDS: HYDROMORPHONE 1 MG INJ IV (17:03)
[2024-10-18] MEDS: LACTATED RINGERS 1,000 ML 100 ML IV ×2 (17:25→20:02)
[2024-10-18] MEDS: KETOROLAC 30 MG/ML VIAL IV ×2 (18:45→22:17)
[2024-10-18] MEDS: DOCUSATE 100 MG CAPSULE 200 MG PO (20:07)
[2024-10-18] MEDS: ACETAMINOPHEN 325 MG TABLET 650 MG PO (22:17)
[2024-10-19] MEDS: KETOROLAC 30 MG/ML VIAL IV (04:10)
[2024-10-19] MEDS: ACETAMINOPHEN 325 MG TABLET 650 MG PO ×4 (04:11→21:42)
[2024-10-19] MEDS: OXYCODONE IR 5 MG TABLET PO ×4 (04:11→21:44)
[2024-10-19] MEDS: HYDROMORPHONE 1 MG INJ IV ×4 (04:50→18:55)
[2024-10-19 05:16] LABS: Add Manual Diff / Slide Review NO; Basophils Absolute Auto 0 /uL (0-100); Basophils Percent Auto 0.2 % (0-2); Eosinophils Absolute Auto 0 /uL (0-450); Hematocrit 36.1 % (36-46); Hemoglobin 12.2 g/dL (12.0-16.0); Lymphocytes Absolute Auto 1600 /uL (1100-4500); Lymphocytes Percent Auto 13.1 % (25-40); Mean Corpuscular HGB Conc 33.8 % (30-36); Mean Corpuscular Hemoglobin 30.3 PG (26-34); Mean Corpuscular Volume 89.6 fL (80-100); Monocytes Absolute Auto 700 /uL (0-900); Monocytes Percent Auto 5.7 % (3-14); Neutrophils Absolute Auto 9900 /uL (1500-7000); Platelet Count 260 X10^3/uL (150-400); Red Blood Cell Count 4.03 X10^6/uL (4.0-5.2); Red Cell Distribution Width 13.9 % (11.6-14.8); White Blood Cell Count 12.2 X10^3/uL (4.5-11.0)
--- NOTE | 2024-10-19 07:12 | PC.NURSE ---
Bang removed at ~0115 per pt request & with provider agreement. ~0430 pt experiencing increased pain and pressure. Pt sat on commode and ambulated to bathroom in effort to void, but was ultimately unable to void. Bladder scan revealed >450 & per protocol, bang was replaced @ ~0545 850 ml marcio urine immediately output. Pt is complaining of sharp pain/pulling/pressure in R pubic area/labia. Bruising noted on labia & inflammation around R pubic incision. Pt medicated per protocol, repositioned, cold applied.
[2024-10-19 08:00] VITALS: BP 100/91; PULSE 88; RESP 18; TEMP 36.2; O2SAT 99
[2024-10-19] MEDS: ONDANSETRON 4 MG/2 ML INJ IV ×2 (08:18→12:14)
[2024-10-19] MEDS: DOCUSATE 100 MG CAPSULE 200 MG PO ×2 (08:20→21:45)
--- NOTE | 2024-10-19 08:36 | P.DS_ITS ---
History of Present Illness History of Present Illness Date Patient Seen: 10/19/24 Time Patient Seen: 08:36 Chief complaint: Laparoscopic Total Hysterectomy Discharge Providers Provider Primary care physician: Janina Rangel [facility] Discharge provider: Leonard Gayle MD Exam Vital Signs (past 8 hours): - 10/19/24 07:00 Oxygen Delivery Method Room Air Oxygen Delivery Method Room Air Oxygen Flow Rate 0 Objective Labs 10/19/24 04:50 Labs: Laboratory Results - last 24 hr 10/19/24 04:50 WBC 12.2 H RBC 4.03 Hgb 12.2 Hct 36.1 MCV 89.6 MCH 30.3 MCHC 33.8 RDW 13.9 Plt Count 260 Neut % (Auto) 81.0 H Lymph % (Auto) 13.1 L [place] % (Auto) 5.7 Eos % (Auto) 0.0 L Baso % (Auto) 0.2 Neut # (Auto) 9900 H Lymph # (Auto) 1600 [place] # (Auto) 700 Eos # (Auto) 0 Baso # (Auto) 0 PFSH Medical History POTS (postural orthostatic tachycardia syndrome) COVID-19 long hauler Palpitations Atrial tachycardia, paroxysmal Bilateral finger numbness Acute hypoxemic respiratory failure COVID History of migraine with aura Family history of endometriosis Dyspareunia in female Pelvic pain in female Dysmenorrhea Premenstrual dysphoric syndrome Restless legs Weight gain due to medication Menometrorrhagia Back pain Bruxism (teeth grinding) Anxiety and depression Surgical History Anesthesia History of tonsillectomy (~1994) Family History Father Diabetes mellitus Aortic stenosis History of heart disease Hypertension Mental health problem Depression Anxiety Mother Anemia Hypoglycemic syndrome Grandfather History of heart disease Hyperlipidemia Grandmother Hyperlipidemia Mental health problem Anxiety Grandfather Diabetes mellitus Mental health problem Anxiety Depression Social History household members: spouse and family Smoking Status: Never smoker alcohol intake: never Discharge Plan Discharge Plan Patient Disposition: Home Provider Discharge Comment: The written instructions you received when you were discharged from the hospital. Your follow-up appointment is scheduled for 2 weeks after your surgery and I look forward to seeing you then. If however in the meanwhile, you have any questions, concerns, or other issues, please contact me either by phone at [phone], or via the patient portal. Discharge orders & Medications Prescriptions: No Action No Known Home Medications Follow up/Referrals: Janina Rangel FNP- [Primary Care Provider] - Leonard Gayle MD [Physician] - Diet/Activity/Treatments Diet: Diet as Tolerated Activity: As tolerated Other treatments: Qyvi-khe-dmkihta Tylenol and/or ibuprofen may be used for additional pain relief. Mmox-xrz-ytwravc stool softeners and/or MiraLax may be used as needed for constipation. Skin/Wound/Dressing Care Report to your healthcare provider any signs of infection, such as:: chills, fever, increased pain, unusual drainage and unusual redness Dressing: Please remove dressings on the morning of 10/20/2024 Visit Report/Discharge Packet Instructions: DI for Hysterectomy, DI for Laparoscopy, DI for Prescription Opioid Use Print Language: Japanese Discharge Data Primary Care Provider: Janina Rangel Attending Provider: Leonard Gayle Quality VTE Deep Vein Thrombosis/Pulmonary Embolism Present on Admission: No
[2024-10-19] MEDS: TAMSULOSIN 0.4 MG CAPSULE PO ×2 (10:26→21:44)
--- NOTE | 2024-10-19 11:58 | CM.DANOTE ---
Initial DCP Assessment Note Pt is a 39 yo female, resident of [place], now POD#1 from Laparoscopic Total Hysterectomy PCP: LEE GUERRERO Payer: Omer Reviewed chart, pt discussed in multidisciplinary rounds this morning. It is expected that patient will be discharged home today. Patient lives independently with spouse and family. Spouse at bedside today. No barriers identified at this time to patient's safe discharge home w/family to assist; close outpatient f/u recommended. CM team will plan to follow clinical course closely in case any DC needs or concerns arise. SVETLANA Piper Discharge Planning/Care Management CM Discharge Assessment Start: 10/19/24 11:57 Freq: Status: Active Protocol: Document 10/19/24 11:57 MARTÍN (Rec: 10/19/24 11:58 MARTÍN [id number]) Discharge Planning Assessment Assigned Digital Forensic Analyst SVETLANA Cain DPOA/Assigned Designee Name Javi Bean Contact Information [phone] Advance Directives? No Advance Directives on File No History Provided By Patient,Family Member,Medical Record Has Patient been admitted in last 30 No days? Prior Living Arrangements House Household Members spouse,family Type of transporation used prior to Drives own vehicle admit Independent with ADL's Yes Is patient alert and oriented? Yes Caregiver for Another No Barriers to Discharge No Discharge Plan Home Transportation Arrangement Family to provide transport. Referrals Initiated Other Additional Comment CM team following for d/c planning needs. At this time no needs anticipated.
[2024-10-19 12:19] VITALS: BP 100/64; PULSE 77
--- NOTE | 2024-10-19 13:38 | PC.NURSE ---
[id number] Call placed to MD Gayle. Patient bladder scanned, output 10 cc. Patient tearful of not being able to urinate. Orders received for LR 1000 cc bolus one time dose and one time dose Ativan 1 mg PO if needed.
[2024-10-19] MEDS: LACTATED RINGERS 1,000 ML 1000 ML IV (13:58)
[2024-10-19] MEDS: LORazepam 1 MG TABLET PO ×2 (14:03→21:45)
[2024-10-19 20:00] VITALS: BP 118/77; PULSE 84; RESP 18; TEMP 36.4; O2SAT 98
[2024-10-20] MEDS: HYDROMORPHONE 1 MG INJ IV ×2 (03:09→10:16)
[2024-10-20] MEDS: ACETAMINOPHEN 325 MG TABLET 650 MG PO ×2 (03:24→08:09)
[2024-10-20 04:41] VITALS: BP 112/65; PULSE 85; RESP 18; TEMP 36.2; O2SAT 96
[2024-10-20] MEDS: OXYCODONE IR 5 MG TABLET PO ×2 (05:09→08:58)
[2024-10-20 08:00] VITALS: BP 109/62; PULSE 86; RESP 15; TEMP 36.3; O2SAT 95
[2024-10-20] MEDS: ONDANSETRON 4 MG/2 ML INJ IV (08:08)
[2024-10-20] MEDS: DOCUSATE 100 MG CAPSULE 200 MG PO (08:09)
--- NOTE | 2024-10-20 10:02 | P.PN_ITS ---
Subjective Subjective Date Patient Seen: 10/19/24 Time Patient Seen: 08:00 Interval history: Patient's 1st night following surgery relatively uneventful reasonable pain control. She has no vaginal bleeding. She is tolerating regular diet and has been up out of bed. Catheter removed at 1:00 a.m. this a.m. but unable to void and catheter reinserted at 4:00 a.m. this a.m.. She will have a 2nd trial of voiding later this morning and discharge will be contingent upon her ability to effectively urinate without repeat catheterization. Exam Vital Signs (past 8 hours): - 10/20/24 04:41 10/20/24 07:00 10/20/24 08:00 Temperature 97.1 F L 97.4 F L Pulse Rate 85 86 Respiratory Rate 18 15 Blood Pressure 112/65 109/62 Pulse Oximetry 96 95 Oxygen Delivery Method Room Air Oxygen Flow Rate 0 Oxygen Delivery Method Room Air Oxygen Flow Rate 0 Const General: cooperative and comfortable Nutritional Appearance: average body habitus Orientation: alert and oriented x3 HENMT Head: normal to inspection, atraumatic and abrasion Ears: hearing grossly normal bilaterally Face and sinus: face symmetric Eyes General: appearance normal, both eyes and all related structures Conjunctivae: conjunctivae normal Sclera: sclerae normal EOM: EOM intact bilaterally Neck Neck: normal visual inspection Resp Effort & Inspection: normal respiratory effort and able to speak in complete sentences Auscultation: clear to auscultation bilaterally Cardio Rate: regular rate Rhythm: regular rhythm Heart Sounds: S1 normal, S2 normal and no murmurs GI Inspection: normal to inspection and incision (Surgical dressings clean and dry) Palpation: soft, no hepatosplenomegaly and tender (Mild, diffuse postsurgical tenderness) Auscultation: hypoactive bowel sounds External Female Exam: other (No significant bleeding noted) Extrem General: no calf tenderness Psych Appearance: grossly normal Mental Status: mental status grossly normal Speech and Movement: speech and movement normal Mood: congruent mood Affect: normal affect Attitude: cooperative Thought Process: normal Thought Content: normal Judgment: judgment good Objective Labs 10/19/24 04:50 [facility] Medical History POTS (postural orthostatic tachycardia syndrome) COVID-19 long hauler Palpitations Atrial tachycardia, paroxysmal Bilateral finger numbness Acute hypoxemic respiratory failure COVID History of migraine with aura Family history of endometriosis Dyspareunia in female Pelvic pain in female Dysmenorrhea Premenstrual dysphoric syndrome Restless legs Weight gain due to medication Menometrorrhagia Back pain Bruxism (teeth grinding) Anxiety and depression Surgical History Anesthesia History of tonsillectomy (~1994) Family History Father Diabetes mellitus Aortic stenosis History of heart disease Hypertension Mental health problem Depression Anxiety Mother Anemia Hypoglycemic syndrome Grandfather History of heart disease Hyperlipidemia Grandmother Hyperlipidemia Mental health problem Anxiety Grandfather Diabetes mellitus Mental health problem Anxiety Depression Social History household members: spouse and family Smoking Status: Never smoker alcohol intake: never Assessment & Plan Post-op Assessment and plan (1) Menometrorrhagia: (2) Pelvic peritoneal endometriosis: Postoperative Procedures: Procedures Operation Date: 10/18/24 10:45 Actual Procedure Side Surgeon p Laparoscopic Total Hysterectomy with bilateral salpingectomy Leonard Gayle MD s Mid urethral sling WITH CYSTOSCOPY s Excision and fulguration of pelvic peritoneal endometriosis Leonard Gayle MD Postoperative day: 1 Postoperative status: doing well and urinary retention Postoperative status narrative: Will remove catheter later this a.m. and observe for ability/inability to effectively empty her bladder. Postoperative plan: see orders and discharge (Possibly later today if the patient is able to void effectively.) Time Spent With Patient Time with patient: 15-24 minutes Quality VTE Deep Vein Thrombosis/Pulmonary Embolism Present on Admission: No
--- NOTE | 2024-10-20 10:03 | P.DS_ITS ---
History of Present Illness History of Present Illness Date Patient Seen: 10/20/24 Time Patient Seen: 10:03 Chief complaint: Laparoscopic Total Hysterectomy Narrative: Autumn returns now to discuss possible surgery for her longstanding symptoms of menorrhagia, dysmenorrhea, and dyspareunia. She had been on daily norethindrone 1st at 5 mg daily and then .35 mg daily but discontinued the norethindrone due to side effects. Those medications were reporting significant improvement in her symptoms but since discontinuing, the dysmenorrhea, menorrhagia, and dyspareunia have all increased in intensity. Her most recent Pap smear was just a few days ago. She has not had endometrial sampling. Her last imaging was in 2020 and was normal at that time. Review of symptoms is positive for XAVI but negative for intermenstrual or postcoital bleeding. Dyspareunia is deep and in the same spot each time it occurs. In addition to her dyspareunia and dysmenorrhea, she now as a sense of heaviness in the pelvis which is constant but worsens consistently with her menses. Patient also has some sensations that feel like rectal pain. We had an extensive discussion regarding options for treatment of her symptoms. Based on the longstanding nature of the symptoms, inability to tolerate progestin therapy, and family history endometriosis requiring hysterectomy, surgical intervention is appearing to be more and more likely. Will obtain a follow-up ultrasound and have the patient return in about 3 weeks at which time will plan to do an endometrial biopsy and discuss surgical options. Patient's review of systems is also positive for XAVI and will also discuss mid urethral sling as part of her surgery. Endometrial sampling preop is negative for significant abnormality and Pap is current. After consideration of all options, we are proceeding with total laparoscopic hysterectomy and bilateral salpingectomy with mid urethral sling placement and cystoscopy. She presents today for her scheduled surgery. Discharge Providers Provider Discharge Date: 10/20/24 Primary care physician: Janina Rangel [facility] Discharge provider: Leonard Gayle MD Summary Hospital Course Discharge Diagnosis: Menorrhagia Dysmenorrhea Minimal pelvic peritoneal endometriosis Stress urinary incontinence Status post total laparoscopic hysterectomy with bilateral salpingectomy, mid urethral sling placement with cystoscopy Postsurgical urinary retention Hospital Course: Medicine was admitted on 10/19/2024 and later that day underwent an uneventful total laparoscopic hysterectomy with bilateral salpingectomy, excision and fulguration of minimal pelvic endometriosis, and mid urethral sling placement with cystoscopy. Following surgery, she has done well, is ambulating independently, tolerating regular diet, her pain medication is providing adequate pain relief, and she has return of normal bowel function. Unfortunately despite 2 trials of voiding she has been unable to effectively empty her bladder and has now had a catheter replaced to affect adequate bladder emptying. She will be discharged at this time to home with catheter in place and a leg bag following instruction by the nursing staff. She will return in 5 days for catheter removal and has been provided with direct contact information for any issues she might have. She will be discharged at this time following instructions regarding precautionary symptoms, limitations of activity, medications, and plans for follow-up which will be in 5 days. Medications at discharge will include oxycodone 5 mg every 4-6 hours as needed for pain, dispense 20 with no refills, Flomax 0.4 mg p.o. q.d. x7 days, and Cipro 500 mg p.o. b.i.d. x5 days for UTI prophylaxis. Status at Discharge Cognitive/behavioral status at discharge: oriented Functional status at discharge: independent ambulation Overall status at discharge: patient is progressing back to baseline Time Spent with Patient Time spent: Less than 30 minutes Exam Vital Signs (past 8 hours): - 10/20/24 04:41 10/20/24 07:00 10/20/24 08:00 Temperature 97.1 F L 97.4 F L Pulse Rate 85 86 Respiratory Rate 18 15 Blood Pressure 112/65 109/62 Pulse Oximetry 96 95 Oxygen Delivery Method Room Air Oxygen Flow Rate 0 Oxygen Delivery Method Room Air Oxygen Flow Rate 0 Const General: cooperative and comfortable Nutritional Appearance: average body habitus Orientation: alert and oriented x3 HENMT Head: normal to inspection, atraumatic and abrasion Ears: hearing grossly normal bilaterally Face and sinus: face symmetric Eyes General: appearance normal, both eyes and all related structures Conjunctivae: conjunctivae normal Sclera: sclerae normal EOM: EOM intact bilaterally Neck Neck: normal visual inspection Resp Effort & Inspection: normal respiratory effort and able to speak in complete sentences Auscultation: clear to auscultation bilaterally Cardio Rate: regular rate Rhythm: regular rhythm Heart Sounds: S1 normal, S2 normal and no murmurs GI Inspection: normal to inspection and incision (Surgical dressings clean and dry) Palpation: soft, no hepatosplenomegaly and tender (Mild, diffuse postsurgical tenderness) Auscultation: normal bowel sounds External Female Exam: other (No significant bleeding noted) Extrem General: no calf tenderness Psych Appearance: grossly normal Mental Status: mental status grossly normal Speech and Movement: speech and movement normal Mood: congruent mood Affect: normal affect Attitude: cooperative Thought Process: normal Thought Content: normal Judgment: judgment good Objective Labs 10/19/24 04:50 PFSH Medical History POTS (postural orthostatic tachycardia syndrome) COVID-19 long hauler Palpitations Atrial tachycardia, paroxysmal Bilateral finger numbness Acute hypoxemic respiratory failure COVID History of migraine with aura Family history of endometriosis Dyspareunia in female Pelvic pain in female Dysmenorrhea Premenstrual dysphoric syndrome Restless legs Weight gain due to medication Menometrorrhagia Back pain Bruxism (teeth grinding) Anxiety and depression Surgical History Anesthesia History of tonsillectomy (~1994) Family History Father Diabetes mellitus Aortic stenosis History of heart disease Hypertension Mental health problem Depression Anxiety Mother Anemia Hypoglycemic syndrome Grandfather History of heart disease Hyperlipidemia Grandmother Hyperlipidemia Mental health problem Anxiety Grandfather Diabetes mellitus Mental health problem Anxiety Depression Social History household members: spouse and family Smoking Status: Never smoker alcohol intake: never Discharge Assessment & Plan Assessment and Plan Assessment: Menorrhagia Dysmenorrhea Minimal pelvic peritoneal endometriosis Stress urinary incontinence Status post total laparoscopic hysterectomy with bilateral salpingectomy, mid urethral sling placement with cystoscopy Postsurgical urinary retention Plan of Treatment: Patient will be discharged with indwelling Bruce x5 days. Instructions for Bruce care and leg bag use provided. Patient will remove Bruce at home and remain in contact with me personally and the office regarding any subsequent difficulty in urination. Postop follow-up scheduled for 2 weeks after surgery. Discharge Plan Discharge Plan Patient Disposition: Home Provider Discharge Comment: The written instructions you received when you were discharged from the hospital. Your follow-up appointment is scheduled for 2 weeks after your surgery and I look forward to seeing you then. If however in the meanwhile, you have any questions, concerns, or other issues, please contact me either by phone at [phone], or via the patient portal. Discharge orders & Medications Discharge Orders: Discharge (Order); Ordered 10/20/24 Ordered By: Leonard Gayle Prescriptions: New oxycodone 5 mg Tablet 5 mg PO Q4-6H PRN (Reason: Pain, Moderate (4-6)) Qty: 20 0RF ciprofloxacin HCl [Cipro] 500 mg tablet 500 mg PO BID Qty: 10 0RF tamsulosin [Flomax] 0.4 mg capsule 0.4 mg PO BEDTIME 7 Days Qty: 7 0RF Follow up/Referrals: Janina Rangel FNP- [Primary Care Provider] - Leonard Gayle MD [Physician] - Diet/Activity/Treatments Diet: Diet as Tolerated Activity: As tolerated Other treatments: [id number] Tylenol and/or ibuprofen may be used for additional pain relief. [id number] stool softeners and/or MiraLax may be used as needed for constipation. Skin/Wound/Dressing Care Report to your healthcare provider any signs of infection, such as:: chills, fever, increased pain, unusual drainage and unusual redness Dressing: Please remove dressings on the morning of 10/20/2024 Visit Report/Discharge Packet Instructions: DI for Hysterectomy, DI for Laparoscopy, DI for Prescription Opioid Use Stand Alone Forms: Surgery Discharge Print Language: Setswana Discharge Data Primary Care Provider: Janina Rangel Attending Provider: Leonard Gayle Quality VTE Deep Vein Thrombosis/Pulmonary Embolism Present on Admission: No [facility] PROFEE Charge Codes Discharge inpatient/observation: 77991
== END 2024-10-20 10:58 | disposition home or self-care (01) ==
LOC: OR 09:01 → AC 09:01
PROVIDERS: PCP Nurse Practitioner Family; Referring Provider Obstetrics & Gynecology; Visit Provider Obstetrics & Gynecology
PROC: 0UT94ZZ Resection of Uterus, Percutaneous Endoscopic Approach (ICD-10-PCS; CPT 58571; principal; 2024-10-18 10:45)
PROC: 0TSD0ZZ Reposition Urethra, Open Approach (ICD-10-PCS; CPT 58571; 2024-10-18 10:45)
DX: N92.1 Excessive and frequent menstruation with irregular cycle (principal); N39.3 Stress incontinence (female) (male); N94.10 Unspecified dyspareunia; N94.6 Dysmenorrhea, unspecified; N80.30 Endometriosis of pelvic peritoneum, unspecified; N80.352 Endometriosis of the left pelvic sidewall, unspecified depth; N83.01 Follicular cyst of right ovary; D25.2 Subserosal leiomyoma of uterus; N83.8 Other noninflammatory disorders of ovary, fallopian tube and broad ligament
CPT/HCPCS: 58571; 58662; 57288; 82962; 85025; C1771; J0690; J1100; J1171; J1885; J2250; J2405; J2704; J3010

== ENCOUNTER → 2024-10-23 12:23 | Outpatient (CLI) | payer OTHER, SELFPAY ==
[2024-10-18 14:57] VITALS: BMI 28.0
== END ==
PROVIDERS: PCP Nurse Practitioner Family; Visit Provider Obstetrics & Gynecology
DX: N39.3 Stress incontinence (female) (male) (principal); R10.2 Pelvic and perineal pain; N94.10 Unspecified dyspareunia
CPT/HCPCS: 87086

== ENCOUNTER 2025-03-07 16:44 | Emergency (ER) | payer OTHER, SELFPAY ==
[2024-10-18 14:57] VITALS: BMI 28.0
[2025-03-07] VITALS (12 sets, daily range): BP systolic 102–126; BP diastolic 65–74; PULSE 65–74; RESP 13–25; TEMP 36.6; O2SAT 96–100; BMI 28.3
[2025-03-07 17:30] LABS: Add Manual Diff / Slide Review NO; Hematocrit 38.1 % (36-46); Hemoglobin 13.0 g/dL (12.0-16.0); Lymphocytes Absolute Auto 1900 /uL (1100-4500); Mean Corpuscular HGB Conc 34.0 % (30-36); Mean Corpuscular Hemoglobin 29.9 PG (26-34); Mean Corpuscular Volume 87.9 fL (80-100); Platelet Count 250 X10^3/uL (150-400)
[2025-03-07 17:38] LABS: Alanine Aminotransferase 25 IU/L (<35); Albumin 5.0 g/dL (3.5-5.0); Albumin Globulin Ratio 1.6 (1.0-2.8); Alkaline Phosphatase 67 U/L (38-126); Blood Urea Nitrogen 21 mg/dL (7-17); Calcium 9.5 mg/dL (8.4-10.2); Carbon Dioxide 24 mmol/L (22-32); Chloride 104 mmol/L (98-107); Estimated Glomerular Filt Rate > 60 mL/min (>60); Globulin 3.2 g/dL (1.7-4.1); Glucose 106 mg/dL (70-99); HEMOLYSIS < 15 (0-50); Lipase 183 U/L (23-300); Potassium 4.2 mmol/L (3.4-5.1); Sodium 137 mmol/L (137-145); Total Protein 8.2 g/dL (6.3-8.2)
--- NOTE | 2025-03-07 18:08 | ED.ABDPAIN ---
HPI - Abdominal Pain General Chief Complaint: Abdominal Pain Stated Complaint: severe abd pain, nausea , chills Time Seen by Provider: 03/07/25 18:05 Source: patient Mode of arrival: Ambulatory History of Present Illness HPI narrative: 39-year-old female with epigastric abdominal pain since earlier today, some nausea without emesis. No history of known gallbladder problems, stomach ulcers, pancreas problems. Denies injury trauma new activities. No cough or chest pain or shortness of breath. Denies painful or frequent urination. She denies fevers but has some chills. No known exposure to close contact persons with similar symptoms recent. Related Data Previous Rx's ?Medication ?Instructions ?Recorded omeprazole 20 mg capsule,delayed 20 mg PO DAILY upper abdominal 03/08/25 release pain 30 days #30 caps Allergies Allergy/AdvReac Type Severity Reaction Status Date / Time No Known Drug Allergies Allergy Verified 03/07/25 16:53 Patient History Medical History (Updated 03/08/25 @ 00:57 by Pietro Pradhan MD) POTS (postural orthostatic tachycardia syndrome) COVID-19 long hauler Palpitations Atrial tachycardia, paroxysmal Bilateral finger numbness Acute hypoxemic respiratory failure COVID History of migraine with aura Family history of endometriosis Dyspareunia in female Pelvic pain in female Dysmenorrhea Premenstrual dysphoric syndrome Restless legs Weight gain due to medication Menometrorrhagia Back pain Bruxism (teeth grinding) Anxiety and depression Surgical History (Updated 01/31/25 @ 08:55 by Mikala Chino RN) Hx of hysterectomy (10/18/24) Hx of bilateral breast reduction surgery (01/02/20) H/O cardiac radiofrequency ablation (08/2021) Anesthesia History of tonsillectomy (~1994) Family History Father Diabetes mellitus Aortic stenosis History of heart disease Hypertension Mental health problem Depression Anxiety Mother Anemia Hypoglycemic syndrome Grandfather History of heart disease Hyperlipidemia Grandmother Hyperlipidemia Mental health problem Anxiety Grandfather Diabetes mellitus Mental health problem Anxiety Depression Social History household members: spouse and family alcohol intake: never alcohol intake frequency: 0-2 drinks per day Exam Narrative Exam Narrative: GENERAL: Well-developed patient, in mild distress. HEAD: Atraumatic. Normocephalic. EYES: Pupils equal round and reactive. Extraocular motions intact. No scleral icterus. No injection or drainage. ENT: Nose without bleeding, purulent drainage. Throat without erythema, tonsillar hypertrophy or exudate. Airway patent. NECK: Trachea midline. Non tender CARDIOVASCULAR: Regular rate and rhythm without murmurs, gallops, or rubs. RESPIRATORY: Clear to auscultation. Breath sounds equal bilaterally. No wheezes, rales, or rhonchi. GASTROINTESTINAL: Abdomen soft, non-tender, nondistended. EXTREMITIES: No edema or joint tenderness. BACK: Nontender without deformity or crepitance. No flank tenderness. NEURO: AOx3. Motor functions grossly nonfocal. SKIN: No rash or erythema of visible areas Initial Vital Signs Initial Vital Signs: Vital Signs Temperature 97.9 F 03/07/25 16:49 Pulse Rate 70 03/07/25 16:49 Respiratory Rate 18 03/07/25 16:49 Blood Pressure 126/73 03/07/25 16:49 Pulse Oximetry 99 03/07/25 16:49 Oxygen Delivery Method Room Air 03/07/25 16:49 Course Orders Ordered: ED Orders 03/07/25 22:12 US abdomen limited Stat Discontinued Medications Hydrocodone Bitart/Acetaminophen (Hydrocodone/Acet 5/325 Prepack) 1 bottle MISC DIRECTED ONE Stop: 03/08/25 00:23 Last Admin: 03/08/25 00:45 Dose: 1 bottle Documented By: TIEN Hydrocodone Bitart/Acetaminophen (Hydrocodone/Acet 5/325 Tablet) 1 tab PO NOW ONE Stop: 03/08/25 00:23 Last Admin: 03/08/25 00:45 Dose: 1 tab Documented By: TIEN Hydromorphone HCl (Hydromorphone Hcl 0.5 Mg/0.5 Ml Syringe) 0.5 mg IV NOW ONE Stop: 03/07/25 18:09 Last Admin: 03/07/25 18:15 Dose: 0.5 mg Documented By: TIEN Hydromorphone HCl (Hydromorphone Hcl 0.5 Mg/0.5 Ml Syringe) 0.5 mg IV NOW ONE Stop: 03/07/25 19:57 Last Admin: 03/07/25 20:03 Dose: 0.5 mg Documented By: TIEN Ketorolac Tromethamine (Ketorolac 30 Mg/Ml Vial) 15 mg IV NOW ONE Stop: 03/07/25 22:12 Last Admin: 03/07/25 22:29 Dose: 15 mg Documented By: TIEN Ondansetron HCl (Ondansetron 4 Mg/2 Ml Inj) 4 mg IV NOW PRN PRN Reason: Nausea And Vomiting Last Admin: 03/07/25 18:15 Dose: 4 mg Documented By: TIEN Ondansetron HCl (Ondansetron 4 Mg Odt) 4 mg PO NOW PRN PRN Reason: Nausea And Vomiting Ondansetron HCl (Ondansetron 4 Mg Odt Prepack) 1 bottle MISC DIRECTED ONE Stop: 03/08/25 00:26 Last Admin: 03/08/25 00:45 Dose: 1 bottle Documented By: TIEN Pantoprazole Sodium (Pantoprazole 40 Mg Vial) 40 mg IV NOW ONE Stop: 03/07/25 19:09 Last Admin: 03/07/25 19:18 Dose: 40 mg Documented By: TIEN Vital Signs Vital signs: Vital Signs - 8 hr 03/07/25 20:30 03/07/25 20:30 03/07/25 21:00 Pulse Rate 71 Respiratory Rate 18 Blood Pressure 105/65 112/71 Pulse Oximetry 96 Oxygen Delivery Method Room Air 03/07/25 21:00 03/07/25 21:30 03/07/25 21:30 Pulse Rate 68 74 Respiratory Rate 17 16 Blood Pressure 116/70 Pulse Oximetry 100 100 Oxygen Delivery Method 03/07/25 22:00 03/07/25 22:00 03/07/25 22:30 Pulse Rate 70 Respiratory Rate 17 Blood Pressure 112/67 113/74 Pulse Oximetry 100 Oxygen Delivery Method 03/07/25 22:30 03/07/25 23:00 03/07/25 23:00 Pulse Rate 71 71 Respiratory Rate 18 13 Blood Pressure 105/66 Pulse Oximetry 99 99 Oxygen Delivery Method 03/07/25 23:30 03/07/25 23:30 03/08/25 00:00 Pulse Rate 71 Respiratory Rate 15 Blood Pressure 102/68 96/73 Pulse Oximetry 96 Oxygen Delivery Method 03/08/25 00:00 03/08/25 00:30 03/08/25 00:30 Pulse Rate 74 70 Respiratory Rate 20 16 Blood Pressure 110/67 Pulse Oximetry 96 98 Oxygen Delivery Method 03/08/25 01:00 03/08/25 01:00 Pulse Rate 74 Respiratory Rate 15 Blood Pressure 106/70 Pulse Oximetry 98 Oxygen Delivery Method MDM - Abdominal Pain Lab Data Attestation: I reviewed the patient's lab results. Lab results narrative: White blood cell count 19594, hemoglobin 13, platelets adequate. Glucose 106. BUN 21 with creatinine 0.62, serum CO2 24 normal, electrolytes normal. Liver functions normal. Lipase normal. 03/07/25 17:11 03/07/25 17:11 Labs: Lab Results 03/07/25 Range/Units 17:11 WBC 12.0 H (4.5-11.0) X10^3/uL RBC 4.33 (4.0-5.2) X10^6/uL Hgb 13.0 (12.0-16.0) g/dL Hct 38.1 (36-46) % MCV 87.9 (80-100) fL MCH 29.9 (26-34) PG MCHC 34.0 (30-36) % RDW 13.4 (11.6-14.8) % Plt Count 250 (150-400) X10^3/uL Neut % (Auto) 77.2 H (50-75) % Lymph % (Auto) 16.0 L (25-40) % [place] % (Auto) 4.9 (3-14) % Eos % (Auto) 1.3 L (2-4) % Baso % (Auto) 0.6 (0-2) % Neut # (Auto) 9300 H (4188-6441) /uL Lymph # (Auto) 1900 (7585-1536) /uL [place] # (Auto) 600 (0-900) /uL Eos # (Auto) 200 (0-450) /uL Baso # (Auto) 100 (0-100) /uL Sodium 137 (137-145) mmol/L Potassium 4.2 (3.4-5.1) mmol/L Chloride 104 (98-107) mmol/L Carbon Dioxide 24 (22-32) mmol/L BUN 21 H (7-17) mg/dL Creatinine 0.62 (0.52-1.04) mg/dL Estimated GFR > 60 (>60) mL/min BUN/Creatinine Ratio 33.9 H (6-22) Glucose 106 H (70-99) mg/dL Calcium 9.5 (8.4-10.2) mg/dL Total Bilirubin 0.4 (0.2-1.3) mg/dL AST 26 (14-36) IU/L ALT 25 (<35) IU/L Alkaline Phosphatase 67 (38-126) U/L Total Protein 8.2 (6.3-8.2) g/dL Albumin 5.0 (3.5-5.0) g/dL Globulin 3.2 (1.7-4.1) g/dL Albumin/Globulin Ratio 1.6 (1.0-2.8) Lipase 183 (23-300) U/L Point of care testing: Urine Dip Bedside Urine Glucose Negative Bedside Urine Bilirubin - Negative Bedside Urine Ketone - Negative Urine Specific [place] 1.010 Bedside Urine Occult Blood - Negative Bedside Urine pH 8.5 Bedside Urine Protein - Negative Bedside Urine Urobilinogen +/- 1mg Bedside Urine Nitrite - Negative Bedside Urine Leukocytes - Negative Esterase Imaging Data CT scan - abdomen/pelvis: Radiologist's Impression: [place] [address] CT Scan Report Signed Patient: Autumn Bean MR#: [id number] : 1985 Acct:[id number] Age/Sex: 39 / F Date of Service: 03/07/25 Loc: Accession Number: [id number] Procedure: CT abdomen pelvis w con Ordering Provider: Pietro Pradhan MD PROCEDURE: CT ABDOMEN PELVIS W CON INDICATIONS: abd pain epig periumbilical TECHNIQUE: After the administration of intravenous contrast, axial sections acquired from the lung bases to the pubic symphysis. Coronal and sagittal reformats were performed. For radiation dose reduction, the following was used: automated exposure control, adjustment of mA and/or kV according to patient size. COMPARISON: CT, CT ANGIO CHEST PE PROTOCOL, 05/08/2021, 13:57 FINDINGS: Image quality: Diagnostic. Lower Chest: No significant findings. ABDOMEN: Liver: No solid mass. Steatosis. Gallbladder: Luminal stones without wall thickening. Biliary ducts: No biliary dilation. Pancreas: No ductal dilation. Spleen: Size is within normal limits. Adrenal Glands: No adrenal nodules. Kidneys and Ureters: No hydronephrosis. Heterogeneous exophytic mass along the posterior aspect the right midpole measuring 2.5 x 2.0 cm. Stomach and Bowel: Normal colonic caliber, without significant wall thickening. Appendix is normal. Scattered stool. Mild hiatal hernia. Peritoneum: Mild dependent pelvic fluid. No free air. Ventral Wall: No significant ventral hernia. Abdominal Nodes: No retroperitoneal or mesenteric adenopathy by size criteria. Vessels: Aorta and inferior vena cava are normal in size. PELVIS: Pelvic Organs: Unremarkable. Bladder: No bladder wall thickening, accounting for underdistention. Pelvic Nodes: No enlarged lymph nodes. Miscellaneous: No inguinal hernias are seen. Bones: No aggressive osseous abnormality. IMPRESSION: [address] [address] [address] Scan Report Signed Patient: Autumn Bean MR#: [id number] : 1985 Acct:[id number] Age/Sex: 39 / F Date of Service: 03/07/25 Loc: ED Accession Number: [id number] Procedure: CT abdomen pelvis w con Ordering Provider: Pietro Pradhan MD PROCEDURE: CT ABDOMEN PELVIS W CON INDICATIONS: abd pain epig periumbilical TECHNIQUE: After the administration of intravenous contrast, axial sections acquired from the lung bases to the pubic symphysis. Coronal and sagittal reformats were performed. For radiation dose reduction, the following was used: automated exposure control, adjustment of mA and/or kV according to patient size. COMPARISON: CT, CT ANGIO CHEST PE PROTOCOL, 05/08/2021, 13:57 FINDINGS: Image quality: Diagnostic. Lower Chest: No significant findings. ABDOMEN: Liver: No solid mass. Steatosis. Gallbladder: Luminal stones without wall thickening. Biliary ducts: No biliary dilation. Pancreas: No ductal dilation. Spleen: Size is within normal limits. Adrenal Glands: No adrenal nodules. Kidneys and Ureters: No hydronephrosis. Heterogeneous exophytic mass along the posterior aspect the right midpole measuring 2.5 x 2.0 cm. Stomach and Bowel: Normal colonic caliber, without significant wall thickening. Appendix is normal. Scattered stool. Mild hiatal hernia. Peritoneum: Mild dependent pelvic fluid. No free air. Ventral Wall: No significant ventral hernia. Abdominal Nodes: No retroperitoneal or mesenteric adenopathy by size criteria. Vessels: Aorta and inferior vena cava are normal in size. PELVIS: Pelvic Organs: Unremarkable. Bladder: No bladder wall thickening, accounting for underdistention. Pelvic Nodes: No enlarged lymph nodes. Miscellaneous: No inguinal hernias are seen. Bones: No aggressive osseous abnormality. IMPRESSION: Scattered stool without obstruction. Cholelithiasis without imaging appearance of cholecystitis. Exophytic heterogeneous right renal mass as above. Appearance is not consistent with a simple cyst. Small areas of fat may be present which could indicate angiomyolipoma. However, further evaluation with CT/MR with renal protocol is recommended for further evaluation on a nonemergent basis. Dictated by: Marely Mercado M.D. on 03/07/2025 at 21:37 Approved by: Marely Mercado M.D. on 03/07/2025 at 21:41 Dictated by: Marely Mercado M.D. on 03/07/2025 at 21:37 Approved by: Marely Mercado M.D. on 03/07/2025 at 21:41 Ultrasound right upper quadrant abdomen: Radiologist's Impression: [place] [address] Ultrasound Report Signed Patient: Autumn Bean MR#: [id number] : 1985 Acct:[id number] Age/Sex: 39 / F Date of Service: 03/07/25 Loc: ED Accession Number: [id number] Procedure: US abdomen limited Ordering Provider: Pietro Pradhan MD PROCEDURE: US ABDOMEN LIMITED INDICATIONS: Epig/RUQ abdominal pain, cholelith on CT TECHNIQUE: Real-time scanning was performed of the abdominal and retroperitoneal organs, with image documentation. COMPARISON: [facility], CT, CT ABDOMEN PELVIS W CON, 03/07/2025, 21:06. FINDINGS: Liver: Liver is normal in size and homogeneous in echotexture. Gallbladder: Mobile foci of increased echogenicity are present within the gallbladder lumen. Wall thickness is normal measuring 0.7 mm. No pericholecystic fluid. Biliary ducts: Intrahepatic bile ducts are non-dilated. Extrahepatic bile duct caliber measures 3.5 mm. Normal is 6-7 mm or less in diameter, or 10 mm or less post-cholecystectomy. Pancreas: Visualized portions of the pancreas are sonographically normal. Miscellaneous: No free abdominal fluid. IMPRESSION: Cholelithiasis without wall thickening or pericholecystic fluid. Dictated by: Marely Mercado M.D. on 03/07/2025 at 23:14 Approved by: Marely Mercado M.D. on 03/07/2025 at 23:[address] [facility] Narrative Medical decision making narrative: 39-year-old female with epigastric area discomfort since noon today, tenderness epigastrium and supraumbilical region, no history of known gallbladder pancreas peptic gastric problems. Afebrile, sirs screen negative. Labs pending. IV Protonix. IV Dilaudid/Zofran. Prior hysterectomy, no hCG sent. Lab data: White blood cell count 74649, hemoglobin 13, platelets adequate. Glucose 106. BUN 21 with creatinine 0.62, serum CO2 24 normal, electrolytes normal. Liver functions normal. Lipase normal. No hCG, prior hysterectomy noted. Still having significant pain, declines repeat dose Dilaudid for now. CT abdomen and pelvis ordered. CT abdomen and pelvis. Impressions: ?Scattered stool without obstruction. Cholelithiasis without imaging appearance of cholecystitis. Exophytic heterogeneous right renal mass as above. Appearance is not consistent with a simple cyst. Small areas of fat may be present which could indicate angiomyolipoma. However, further evaluation with CT/MR with renal protocol is recommended for further evaluation on a nonemergent basis. See radiology report. Still having more pain, IV Dilaudid x2, we will give IV Toradol. Ultrasound right upper quadrant ordered. Right upper quadrant abdomen shows cholelithiasis without acute infectious changes. See radiology report. Unclear if cholelithiasis is causing her current symptoms. Possible symptomatic cholelithiasis, versus incidental finding. Consider trial of antacid. Pain medication for discharge. Consider outpatient surgery follow up for possible endoscopy, possible consultation for elective cholecystectomy. Home pack hydrocodone/APAP. Omeprazole prescription. Discharged home with family. Follow up with PCP advised next few days to coordinate follow up. Contact information given for local general surgery clinic. Discharge Plan Departure Patient Disposition: Home Clinical Impression: Cholelithiasis, Lesion of right [place] kidney, Epigastric abdominal pain Activity Restrictions/Additional Instructions: Upper abdominal pain of unclear cause. CT abdomen and pelvis and ultrasound imaging done. There is presence of gallstones but no imaging evidence at this time of inflammation or inflammatory fluid around the gallbladder to suggest acute infection. You could have symptomatic gallstones. Or you might have incidental gallstones and some other cause of your upper abdominal discomfort, such as gastritis or stomach ulcer. Trial of antacid for now. Consider follow up with General surgery, to discuss upper endoscopy and/or elective gallbladder removal surgery options. Take pain medications and antacids as needed. Antinausea med medications if needed. Return earlier to this/nearest emergency department for any change worsening symptoms or any concerns prior. Prescriptions: New omeprazole 20 mg capsule,delayed release(DR/EC) 20 mg PO DAILY 30 Days Qty: 30 0RF Referrals: Rakesh Dodson MD [Physician, General Surgery] Janina Rangel FNP-BC [Primary Care Provider, Family Practice]
[2025-03-07] MEDS: ONDANSETRON 4 MG/2 ML INJ IV (18:15)
--- NOTE | 2025-03-07 19:10 | DI.CT.S_ITS ---
PROCEDURE: CT ABDOMEN PELVIS W CON INDICATIONS: abd pain epig periumbilical TECHNIQUE: After the administration of intravenous contrast, axial sections acquired from the lung bases to the pubic symphysis. Coronal and sagittal reformats were performed. For radiation dose reduction, the following was used: automated exposure control, adjustment of mA and/or kV according to patient size. COMPARISON: CT, CT ANGIO CHEST PE PROTOCOL, 05/08/2021, 13:57 FINDINGS: Image quality: Diagnostic. Lower Chest: No significant findings. ABDOMEN: Liver: No solid mass. Steatosis. Gallbladder: Luminal stones without wall thickening. Biliary ducts: No biliary dilation. Pancreas: No ductal dilation. Spleen: Size is within normal limits. Adrenal Glands: No adrenal nodules. Kidneys and Ureters: No hydronephrosis. Heterogeneous exophytic mass along the posterior aspect the right midpole measuring 2.5 x 2.0 cm. Stomach and Bowel: Normal colonic caliber, without significant wall thickening. Appendix is normal. Scattered stool. Mild hiatal hernia. Peritoneum: Mild dependent pelvic fluid. No free air. Ventral Wall: No significant ventral hernia. Abdominal Nodes: No retroperitoneal or mesenteric adenopathy by size criteria. Vessels: Aorta and inferior vena cava are normal in size. PELVIS: Pelvic Organs: Unremarkable. Bladder: No bladder wall thickening, accounting for underdistention. Pelvic Nodes: No enlarged lymph nodes. Miscellaneous: No inguinal hernias are seen. Bones: No aggressive osseous abnormality. IMPRESSION: Scattered stool without obstruction. Cholelithiasis without imaging appearance of cholecystitis. Exophytic heterogeneous right renal mass as above. Appearance is not consistent with a simple cyst. Small areas of fat may be present which could indicate angiomyolipoma. However, further evaluation with CT/MR with renal protocol is recommended for further evaluation on a nonemergent basis. Dictated by: Marely Mercado M.D. on 03/07/2025 at 21:37 Approved by: Marely Mercado M.D. on 03/07/2025 at 21:41
[2025-03-07] MEDS: PANTOPRAZOLE 40 MG VIAL IV (19:18)
--- NOTE | 2025-03-07 22:12 | DI.US.S_ITS ---
PROCEDURE: US ABDOMEN LIMITED INDICATIONS: Epig/RUQ abdominal pain, cholelith on CT TECHNIQUE: Real-time scanning was performed of the abdominal and retroperitoneal organs, with image documentation. COMPARISON: [facility], CT, CT ABDOMEN PELVIS W CON, 03/07/2025, 21:06. FINDINGS: Liver: Liver is normal in size and homogeneous in echotexture. Gallbladder: Mobile foci of increased echogenicity are present within the gallbladder lumen. Wall thickness is normal measuring 0.7 mm. No pericholecystic fluid. Biliary ducts: Intrahepatic bile ducts are non-dilated. Extrahepatic bile duct caliber measures 3.5 mm. Normal is 6-7 mm or less in diameter, or 10 mm or less post-cholecystectomy. Pancreas: Visualized portions of the pancreas are sonographically normal. Miscellaneous: No free abdominal fluid. IMPRESSION: Cholelithiasis without wall thickening or pericholecystic fluid. Dictated by: Marely Mercado M.D. on 03/07/2025 at 23:14 Approved by: Marely Mercado M.D. on 03/07/2025 at 23:15
[2025-03-07] MEDS: KETOROLAC 30 MG/ML VIAL 15 MG IV (22:29)
[2025-03-08] VITALS: BP 96/73; PULSE 74; RESP 20; O2SAT 96
[2025-03-08 00:30] VITALS: BP 110/67; PULSE 70; RESP 16; O2SAT 98
[2025-03-08] MEDS: ONDANSETRON 4 MG ODT PREPACK 1 BOTTLE MISC (00:45)
[2025-03-08 01:00] VITALS: BP 106/70; PULSE 74; RESP 15; O2SAT 98
== END 2025-03-08 01:30 | disposition home or self-care (01) ==
PROVIDERS: Emergency Medicine; Emergency Provider Emergency Medicine; PCP Nurse Practitioner Family
DX: K80.20 Calculus of gallbladder without cholecystitis without obstruction (principal); N28.9 Disorder of kidney and ureter, unspecified; R10.13 Epigastric pain; R11.0 Nausea
CPT/HCPCS: 74177; 76705; 80053; 81003; 83690; 85025; 96374; 96375; 96376; 99284; J1171; J1885; J2405; J2470; Q9967

== ENCOUNTER → 2025-03-20 15:37 | Outpatient (CLI) | payer OTHER, SELFPAY ==
[2024-10-18 14:57] VITALS: BMI 28.0
--- NOTE | 2025-03-20 15:39 | DI.CT.S_ITS ---
PROCEDURE: CT ABDOMEN RENAL PROTOCOL INDICATIONS: Right renal exophytic mass TECHNIQUE: Optional 5 mm thick noncontrast images acquired from the diaphragm to the iliac crests. After the administration of intravenous contrast, 5 mm thick images again acquired from the diaphragm to the iliac crests in the arterial and urographic phases. 5 mm thick coronal and sagittal reformats were then acquired. For radiation dose reduction, the following was used: automated exposure control, adjustment of mA and/or kV according to patient size. COMPARISON: [facility], CT, CT ABDOMEN PELVIS W CON, 03/07/2025, 21:06. FINDINGS: Image quality: Diagnostic. Kidneys and Ureters: No hydronephrosis. The previously identified right posterior mid kidney exophytic complex renal structure is again seen, initially identified 03/07/25. This has not changed, measures 2.0 x 2.8 cm in maximal axial dimension and 3.2 cm craniocaudad. The current study documents internal fat content, and contrast enhancement in heterogeneous pattern without identify low associated pseudoaneurysm within or immediately adjacent. 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 No complex renal cystic lesion which requires follow up. OTHER: Lower chest: Unremarkable. Liver: No solid mass. Gallbladder: Gallstones are again noted the largest of which measures up to 2 cm. Additional noncalcified gallstones are suspected. Biliary ducts: No biliary dilation. Pancreas: No ductal dilation. Spleen: Size is within normal limits. Adrenal Glands: No adrenal nodules. Stomach and Bowel: Normal colonic caliber, without significant wall thickening. Peritoneum: No abnormal intraperitoneal fluid. No free air. Ventral Wall: No hernia. Abdominal Nodes: No retroperitoneal or mesenteric adenopathy by size criteria. Vessels: Aorta and inferior vena cava are normal in size. Bones: No aggressive osseous abnormality. 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 Urology consultation is recommended. This mass is considered benign, but can enlarge and be associated with internal arterial pseudoaneurysm formation as a relatively rare complication. Dictated by: Clement Alcantara M.D. on 03/21/2025 at 11:09 Approved by: Clement Alcantara M.D. on 03/21/2025 at 11:18
== END ==
PROVIDERS: PCP Nurse Practitioner Family; Referring Provider Surgery; Visit Provider Surgery
DX: N28.9 Disorder of kidney and ureter, unspecified (principal); D17.71 Benign lipomatous neoplasm of kidney
CPT/HCPCS: 74170; Q9967

== ENCOUNTER 2025-04-03 11:53 | Day surgery (SDC) | payer OTHER, SELFPAY ==
[2024-10-18 14:57] VITALS: BMI 28.0
[2025-03-27 11:54] VITALS: BMI 28.3
--- NOTE | 2025-04-03 | PATH_ITS ---
[facility] Accession Number: [id number] No. of containers..01 Tissue . 01 Material submitted: . gallbladder - GALLBLADDER . 01 Diagnosis: GALLBLADDER, CHOLECYSTECTOMY: Cholelithiasis with chronic active cholecystitis. No evidence of neoplasm. MRV 04/10/20251624 Local . 01 Electronically signed: . Javi Sandoval MD, PhD, Pathologist NPI- [id number] . 01 Gross description: . Received in formalin labeled with two patient identifiers and gallbladder, and consists of a 5.2 x 2.8 x 2.5 cm unopenend gallbladder. The serosal surface has a diffuse amount of fibrous adhesions and is pantoja-purple. There is a 0.3 x 0.3 cm probe patent clipped cystic duct which is further inked blue. There is also a 1.1 cm in greatest dimension flattened, slightly disrupted, pantoja-brown, fragmented, possible lymph node adjacent to the cystic duct. The specimen is opened to show a gallbladder wall that is diffusely edematous and ranges from 0.3 to 1.1 cm in thickness. The mucosa is pantoja-red, finely granular, and focally effaced. No mucosal polyps or masses are appreciated. The lumen is filled with approximately 30 cc of brown viscid bile admixed with a 3.5 x 3.0 x 1.8 cm aggregate of pantoja-yellow, multifaceted gallstones. Business Performance Advisor sections are submitted as follows: A1: Cystic duct, fragmented possible cystic node, and automotive sales representative gallbladder. A2: Additional automotive sales representative gallbladder. ([id number]) /JEMIMA 04/10/20251624 Local . 01 Pathologist provided ICD-10: K80.60, K81.2 . 01 CPT . 877652 Specimen Comment: A courtesy copy of this report has been sent to [phone] Performed at: [address] [facility] [address] [facility], [place], [place] [id number] MD Richard Manning MD Phone: [phone]
[2025-04-03 12:39] VITALS: BP 112/77; PULSE 73; RESP 14; TEMP 36.6; O2SAT 99; BMI 28.3
--- NOTE | 2025-04-03 12:48 | PM.PREOP ---
Pre-operative Note COVID-19 COVID-19 status: Not tested Interval Note History & Physical reviewed/Exam performed by Physician: Yes Changes to H&P: No ASA Class (for procedural sedation): II
[2025-04-03] MEDS: LACTATED RINGERS 1,000 ML 42 ML IV ×2 (12:54→15:02)
[2025-04-03] MEDS: ACETAMINOPHEN 325 MG TABLET 975 MG PO (12:55)
--- NOTE | 2025-04-03 13:41 | SUR.OPER ---
Supine on padded OR bed, head on pillow, arms secured on padded arm boards at <90 degrees abduction, legs uncrossed, safety belt at thigh, tape over blanket over lower legs. footboard on
--- NOTE | 2025-04-03 15:22 | PM.OP.1 ---
Operative Date/Time/Diagnoses Date of procedure: 04/03/25 Time of procedure: 15:23 Pre-op diagnosis: Symptomatic cholelithiasis Post-op diagnosis: same Procedure & Clinicians Procedure: Laparoscopic cholecystectomy Same procedure(s) as scheduled: Yes Surgeon: Rakesh Dodson Assisted?: No Anesthesia Type: General Operative Notes Findings: Fibrotic gallbladder with large stones Applied: none Estimated Blood Loss (mL): 25 Procedure in detail: The patient was given preoperative antibiotics. The patient was brought to the operating room and placed on the table in the supine position. General endotracheal anesthesia was induced. The abdomen was prepped and draped. A time-out was performed. We made a 1 cm infraumbilical incision. We dissected down to the base of the umbilical stalk using cautery. We grasped the umbilical stalk with a Phu clamp to elevate the abdominal wall. We scored the fascia in the midline with cautery. We pierced the peritoneum with a Peon clamp. The Kaylin port was placed and the abdomen was insufflated to 15 mmHg. A 5 mm 30 degree laparoscopic was inserted. There was no evidence of any injury from the entry. Next, we placed 5 mm ports in the subxiphoid position and right upper quadrant at the midclavicular line and anterior axillary line. The patient was then positioned in reverse Trendelenburg and the table was tilted to the left. The gallbladder was grasped at the dome and retracted cephalad. There were adhesions that were taken down with the hook cautery. The gallbladder appeared to be quite fibrotic with large stones in the infundibulum. We dissected the cystic structures with a combination of hook cautery and blunt dissection using a Kittner or a suctioned tip. We eventually obtained a critical view. We placed clips on the cystic duct and artery and divided the cystic duct and artery sharply between the clips. The gallbladder was then dissected off the liver and placed in a specimen retrieval bag. We irrigated the right upper quadrant and all the aspirate returned clear. We then removed the 5 mm ports under direct vision we removed the Kaylin port. We then injected some local into the fascia and closed the fascia with 2 interrupted 0 Vicryl sutures. The skin incisions were closed with 4-0 Monocryl and Steri-Strips were applied. Band-Aids were applied over the Steri-Strips. EBL: 25 mL Specimen: Gallbladder and contents Complications: none Post-operative Condition: stable Disposition: PACU
[2025-04-03 15:25] VITALS: BP 104/58; PULSE 94; RESP 15; TEMP 36.3; O2SAT 98
[2025-04-03 15:31] VITALS: BP 107/63; PULSE 94; RESP 18; TEMP 36.2; O2SAT 100
[2025-04-03] MEDS: hydrOXYzine 50 MG/ML INJ 25 MG IM (15:38)
[2025-04-03] MEDS: METOCLOPRAMIDE 10 MG/2 ML INJ IV (15:39)
[2025-04-03] MEDS: ONDANSETRON 4 MG/2 ML INJ IV (15:39)
[2025-04-03 15:44] VITALS: BP 130/80; PULSE 98; RESP 16; TEMP 36.3; O2SAT 99
[2025-04-03 17:30] VITALS: BP 111/74; PULSE 82; RESP 16; TEMP 36.6; O2SAT 98
== END 2025-04-03 17:35 | disposition home or self-care (01) ==
PROVIDERS: PCP Nurse Practitioner Family; Referring Provider Surgery; Visit Provider Surgery
PROC: 0FT44ZZ Resection of Gallbladder, Percutaneous Endoscopic Approach (ICD-10-PCS; CPT 47562; principal; 2025-04-03 13:15)
DX: K80.10 Calculus of gallbladder with chronic cholecystitis without obstruction (principal)
CPT/HCPCS: 47562; 82962; J0689; J1100; J1171; J1885; J2250; J2405; J2704; J2765; J3010; J3410; J3490; J7120